=== PATIENT | female | born 1940 | race Caucasian/White ===

== ENCOUNTER 2017-02-02 09:12 | Emergency (ER) | payer OTHER ==
[~2017-02-02] VITALS: Ht 167.6 cm; Wt 71.0 kg
[2017-02-02 09:14] VITALS: BP 131/67; PULSE 69; RESP 15; TEMP 98.4; O2SAT 98
--- NOTE | 2017-02-02 09:32 | PD ---
HPI Chief Complaint: Fall Time Seen by Provider: 09:23 Travel History International Travel<30 days: No Contact w/Intl Traveler<30days: No Traveled to known affect area: No History of Present Illness HPI The patient was seen and examined in the presence of the nurse. This patient fell yesterday morning and twisted her left ankle. It has become bruised and swollen and painful. She also struck her left forehead on the ground. She denies loss of consciousness or headache or neck pain. She says that she caught her shoe on the ground when she was walking between rooms yesterday and stumbled and fell. She denies presyncopal symptoms or loss of consciousness as causing the event. He denies blood thinners. Symptoms severity is moderate. No alleviating factors. Duration 24 hours PFSH Past Medical History Asthma: Yes Autoimmune Disease: No Blood Disorders: No Cancer: No Cardiovascular Problems: No Endocrine: No Genitourinary: No Neurologic: No Psychiatric: No Social History Alcohol Use: No Tobacco Use: No Substance Use: No Allergies-Medications (Allergen,Severity, Reaction): Coded Allergies: Sulfa (Sulfonamide Antibiotics) (Unverified Allergy, Severe, 02/02/17) Reported Meds & Prescriptions Reported Meds & Active Scripts Active Reported Cartia Xt (Diltiazem ER 24 HR) 120 Mg Caper 120 Mg PO DAILY Namenda (Memantine) 5 Mg Tab 5 Mg PO BID Review of Systems General / Constitutional: No: Fever Eyes: No: Visual changes HENT: No: Headaches Cardiovascular: No: Chest Pain or Discomfort Respiratory: No: Shortness of Breath Gastrointestinal: No: Abdominal Pain Genitourinary: No: Dysuria Musculoskeletal: Positive: Arthralgias, Edema, Pain Skin: No Rash Neurologic: No: Weakness Psychiatric: No: Depression Endocrine: No: Polydipsia Hematologic/Lymphatic: No: Easy Bruising Physical Exam Narrative GENERAL: Well-nourished, well-developed patient in no apparent distress. SKIN: Focused skin assessment reveals no rash and nodules. Skin is Warm and dry. HEAD: Small bruised area to the left forehead. Normocephalic. EYES: Pupils equal and round. No scleral icterus. No injection or drainage. Small area of conjunctival hemorrhage on the lateral aspect of left eye ENT: No nasal bleeding or discharge. Mucous membranes pink and moist. NECK: Trachea midline. No JVD. No midline tenderness CARDIOVASCULAR: Regular rate and rhythm. No murmur appreciated. RESPIRATORY: No accessory muscle use. Clear to auscultation. Breath sounds equal bilaterally. GASTROINTESTINAL: Abdomen soft, non-tender, nondistended. Hepatic and splenic margins not palpable. MUSCULOSKELETAL: There is swelling and bruising and tenderness to the lateral malleolus on the left foot . No clubbing. No cyanosis. No edema. NEUROLOGICAL: Awake and alert. No obvious cranial nerve deficits. Motor grossly within normal limits. Normal speech. PSYCHIATRIC: Appropriate mood and affect; insight and judgment normal. Data Data Last Documented VS Vital Signs Date Time Temp Pulse Resp B/P Pulse Ox O2 Delivery O2 Flow Rate FiO2 02/02/17 09:14 98.4 69 15 131/67 98 Orders Ankle, Complete (Emz4iol) (02/02/17 ) [facility] Medical Decision Making Medical Screen Exam Complete: Yes Emergency Medical Condition: Yes Medical Record Reviewed: Yes Differential Diagnosis Ankle fracture, dislocation, sprain Narrative Course I have reviewed the patient's electronic medical record. I reviewed her left ankle x-rays which show soft tissue swelling but no fracture Regarding her head injury, we will give her head injury precautions. She has no headache or LOC or neurologic abnormalities and denies blood thinners. On repeated questioning this sounds like a mechanical fall. Recommend ice and elevation and walker use to limit weightbearing Diagnosis Primary Impression: Left ankle sprain Qualified Code: S93.432A - Sprain of tibiofibular ligament of left ankle, initial encounter Additional Instructions: Utilize head injury precautions Ice and elevate and avoid weightbearing on left ankle as best as able Med/Other Pt SpecificInfo: Other Disposition: 01 DISCHARGE HOME Condition: Stable Dov Smith MD Feb 02, 2017 09:32
[2017-02-02] MEDS ORDERED: CART120C PO (09:35)
[2017-02-02] MEDS ORDERED: NAME5TAB2 PO (09:35)
--- NOTE | 2017-02-02 10:11 | RADRPT ---
EXAM DATE/TIME: 02/02/2017 09:32 [facility] COMPARISON: No previous studies available for comparison. INDICATIONS : Left ankle pain after fall yesterday. MEDICAL HISTORY : None. SURGICAL HISTORY : None. ENCOUNTER: Initial ACUITY: 2 days PAIN SCORE: 4/10 LOCATION: Left Ankle FINDINGS: The examination demonstrates extensive soft tissue swelling about the ankle mortise. There are modera te degenerative changes. I do not see acute fracture. CONCLUSION: 1. Degenerative changes and soft tissue swelling. No acute fracture. Chang Patel MD on February 02, 2017 at 10:06 Board Certified Radiologist. This report was verified electronically.
== END 2017-02-02 10:53 | disposition home or self-care (01) ==
LOC: PHED 09:12
DX: S93.432A Sprain of tibiofibular ligament of left ankle, initial encounter (principal); S00.83XA Contusion of other part of head, initial encounter; H11.32 Conjunctival hemorrhage, left eye; Z87.09 Personal history of other diseases of the respiratory system; W18.39XA Other fall on same level, initial encounter
CPT/HCPCS: 73610; 99283

== ENCOUNTER 2017-04-26 21:02 | Inpatient (IN) | payer MEDICARE ==
[~2017-04-26] VITALS: Ht 167.6 cm; Wt 71.0 kg
[~2017-04-26 21:02] MED LIST: CALCTAB19 PO; CART120C PO; HYDR-3580 PO; MAGN30S PO; NAME5TAB2 PO; VITA500012 PO; WALKER/ADULT/FO1 MIS; XARE10TA PO
[2017-04-26 21:09] VITALS: BP 147/84; PULSE 82; PULSE 99; RESP 16; TEMP 99.8; O2SAT 95
[2017-04-26 21:47] LABS: AUTOMATED NEUTROPHIL # 8.9 TH/MM3 (1.8-7.7); BASOPHIL % 0.4 % (0.0-2.0); EOSINOPHIL # 0.1 TH/MM3 (0-0.4); EOSINOPHIL % 0.9 % (0.0-4.0); HEMATOCRIT 41.2 % (35.0-46.0); HEMO FLAGS DIFF FINAL; LYMPH % 9.2 % (9.0-44.0); LYMPHOCYTE # 1.1 TH/MM3 (1.0-4.8); MEAN CELL VOLUME 91.3 FL (80.0-100.0); MEAN CORPUSCULAR HEMOGLOBIN 31.1 PG (27.0-34.0); MONO % 14.3 % (0.0-8.0); NEUT % 75.2 % (16.0-70.0); PLATELET COUNT 182 TH/MM3 (150-450); RED BLOOD COUNT 4.52 MIL/MM3 (4.00-5.30); RED CELL DISTRIBUTION WIDTH 12.6 % (11.6-17.2); WHITE BLOOD COUNT 11.8 TH/MM3 (4.0-11.0)
[2017-04-26 21:52] LABS: BLOOD, URINE SMALL (NEG); COMMENT (UR) CULT NOT INDICATED; CULTURE IF INDICATED CULT NOT INDICATED; GLUCOSE,URINE NEG (NEG); KETONE, URINE 40 mg/dL (NEG); NITRITE,URINE NEG (NEG); PH, URINE 6.5 (5.0-8.5); SQUAMOUS EPITHELIAL CELL URINE <1 /hpf (0-5); URINE COLOR YELLOW (YELLW/STRAW)
[2017-04-26 22:16] LABS: ALKALINE PHOSPHATASE 59 U/L (45-117); ALT (GPT) 17 U/L (10-53); ANION GAP 6 MEQ/L (5-15); AST (GOT) 30 U/L (15-37); BICARBONATE 30.4 MEQ/L (21.0-32.0); BLOOD UREA NITROGEN 12 MG/DL (7-18); CHLORIDE 102 MEQ/L (98-107); GLOMERULAR FILTRATION RATE 68 ML/MIN (>89); SODIUM (NA) 138 MEQ/L (136-145); TOTAL BILIRUBIN ADULT 0.7 MG/DL (0.2-1.0)
--- NOTE | 2017-04-26 23:04 | RADRPT ---
EXAM DATE/TIME: 04/26/2017 22:47 [facility] COMPARISON: No previous studies available for comparison. INDICATIONS : Altered mental status, confusion RADIATION DOSE: 28.43 CTDIvol (mGy) MEDICAL HISTORY : Asthma SURGICAL HISTORY : Right hip surgery ENCOUNTER: Initial ACUITY: 1 day PAIN SCALE: 0/10 LOCATION: cranial TECHNIQUE: Multiple contiguous axial images were obtained of the head. Using automated exposure control and adj ustment of the mA and/or kV according to patient size, radiation dose was kept as low as reasonably a chievable to obtain optimal diagnostic quality images. DICOM format image data is available electro nically for review and comparison. FINDINGS: CEREBRUM: The ventricles are normal for age. No evidence of midline shift, mass lesion, hemorrhage or acute in farction. No extra-axial fluid collections are seen. POSTERIOR FOSSA: The cerebellum and brainstem are intact. The 4th ventricle is midline. The cerebellopontine angle i s unremarkable. EXTRACRANIAL: The visualized portion of the orbits is intact. SKULL: The calvaria is intact. No evidence of skull fracture. CONCLUSION: 1. No evidence of acute intracranial pathology. No masses are identified. Kristopher Harman MD on April 26, 2017 at 23:02 Board Certified Radiologist. This report was verified electronically.
[2017-04-26 23:21] VITALS: BP 149/78; PULSE 82; RESP 16; O2SAT 95
--- NOTE | 2017-04-26 23:50 | RADRPT ---
EXAM DATE/TIME: 04/26/2017 23:19 [facility] COMPARISON: CHEST SINGLE AP, April 25, 2017, 12:35. INDICATIONS : Shortness of breath and cough. MEDICAL HISTORY : None. SURGICAL HISTORY : None. ENCOUNTER: Initial ACUITY: 2 days PAIN SCORE: 0/10 LOCATION: chest FINDINGS: The cardiac silhouette is enlarged in transverse diameter. The lungs are free of acute parenchymal op acity. No effusions are identified. There is prominence of the aortic knob is with calcification rin acteristic of atherosclerotic vascular disease. CONCLUSION: 1. Cardiomegaly. No acute pulmonary disease. Kristopher Harman MD on April 26, 2017 at 23:48 Board Certified Radiologist. This report was verified electronically.
--- NOTE | 2017-04-26 23:56 | HHI.HP ---
[facility] Unknown Admission Diagnosis altered Mental Status Diagnoses: (1) Encephalopathy Diagnosis: Principal (2) UTI (urinary tract infection) Diagnosis: Principal (3) Status post right hip replacement Diagnosis: Principal (4) Dementia Diagnosis: Principal Travel History International Travel<30 Days: No Contact w/Intl Traveler <30 Da: No Traveled to Known Affected Are: No History of Present Illness This is a 77-year-old female with a PMH of HTN and Dementia who was sent to the ER from [facility] secondary to AMS. Recent admit 04/23-04/26/17 s/p fall w/ Right Hip Fx, s/p Right Hip Lee-Arthroplasty 04/23/17, was d/c'd to SNF today, however noted by Daughter to be very confused. Daughter states she arrived from [place] last night and found pt to be incoherent, acting bizarrely today. No reported fever, chills. On arrival, BP 147/84, HR 82, O2 sat 95% on RA, Temp 99.8. WBC 11.8. GFR 68. Pulmonary negative. UA with small LE, mild bacteriuria. CT Head with no acute findings. CXR with no acute findings. Review of Systems Except as stated in HPI: all other systems reviewed are Neg ROS: Unable to obtain secondary to AMS. Past Family Social History Past Medical History PMH: HTN and Dementia Past Surgical History PAST SURGICAL HISTORY: Right Hip Lee-Arthroplasty 04/23/17 Allergies: Coded Allergies: Sulfa (Sulfonamide Antibiotics) (Unverified Allergy, Severe, 04/26/17) Family History PAST FAMILY HISTORY: Reviewed. No h/o DM or CAD Social History PAST SOCIAL HISTORY: Negative for alcohol, tobacco or drugs. Physical Exam Vital Signs Vital Signs Date Time Temp Pulse Resp B/P (MAP) Pulse Ox O2 Delivery O2 Flow Rate FiO2 04/26/17 23:21 82 16 149/78 (101) 95 Room Air 04/26/17 21:09 99.8 82 16 147/84 (105) 95 Physical Exam PE: GENERAL: Elderly white female in no acute distress, confused, talking to herself , playing with her sheets. HEENT: PERRLA, EOMI. No scleral icterus or conjunctival pallor. No lid lag or facial droop. CARDIOVASCULAR: Regular rate and rhythm. No obvious murmurs to auscultation. No chest tenderness to palpation. RESPIRATORY: No obvious rhonchi or wheezing. Clear to auscultation. Breath sounds equal bilaterally. GASTROINTESTINAL: Abdomen soft, non-tender, nondistended. BS normal. MUSCULOSKELETAL: Extremities without clubbing, cyanosis, or edema. No obvious deformities. Right LE brace. NEUROLOGICAL: Awake, alert, confused. No focal neurologic deficits. Moving both upper and lower extremities spontaneously. Laboratory Laboratory Tests Test 04/26/17 21:35 White Blood Count 11.8 Red Blood Count 4.52 Hemoglobin 14.0 Hematocrit 41.2 Mean Corpuscular Volume 91.3 Mean Corpuscular Hemoglobin 31.1 Mean Corpuscular Hemoglobin Concent 34.0 Red Cell Distribution Width 12.6 Platelet Count 182 Mean Platelet Volume 9.5 Neutrophils (%) (Auto) 75.2 Lymphocytes (%) (Auto) 9.2 Monocytes (%) (Auto) 14.3 Eosinophils (%) (Auto) 0.9 Basophils (%) (Auto) 0.4 Neutrophils # (Auto) 8.9 Lymphocytes # (Auto) 1.1 Monocytes # (Auto) 1.7 Eosinophils # (Auto) 0.1 Basophils # (Auto) 0.0 CBC Comment DIFF FINAL Differential Comment Urine Color YELLOW Urine Turbidity CLEAR Urine pH 6.5 Urine Specific [place] 1.017 Urine Protein TRACE Urine Glucose (UA) NEG Urine Ketones 40 Urine Occult Blood SMALL Urine Nitrite NEG Urine Bilirubin NEG Urine Urobilinogen LESS THAN 2.0 Urine Leukocyte Esterase SMALL Urine RBC 12 Urine WBC 3 Urine Squamous Epithelial Cells <1 Microscopic Urinalysis Comment CULT NOT INDICATED Blood Urea Nitrogen 12 Creatinine 0.82 Random Glucose 118 Total Protein 6.8 Albumin 2.7 Calcium Level 9.0 Alkaline Phosphatase 59 Aspartate Amino Transf (AST/SGOT) 30 Alanine Aminotransferase (ALT/SGPT) 17 Total Bilirubin 0.7 Sodium Level 138 Potassium Level 4.0 Chloride Level 102 Carbon Dioxide Level 30.4 Anion Gap 6 Estimat Glomerular Filtration Rate 68 Troponin I LESS THAN 0.02 Lipase 85 Result Diagram: 04/26/17213404/26/172134 Caprini VTE Risk Assessment Caprini VTE Risk Assessment: Mod/High Risk (score >= 2) Caprini Risk Assessment Model Point Value = 1 Point Value = 2 Point Value = 3 Point Value = 5 Age 41-60 Minor surgery BMI > 25 kg/m2 Swollen legs Varicose veins or History of unexplained or recurrent spontaneous Oral contraceptives or hormone replacement Sepsis (< 1 month) Serious lung disease, including pneumonia (< 1 month) Abnormal pulmonary function Acute myocardial infarction Congestive heart failure (< 1 month) History of inflammatory bowel disease Medical patient at bed rest Age 61-74 Arthroscopic surgery Major open surgery (> 45 min) Laparoscopic surgery (> 45 min) Malignancy Confined to bed (> 72 hours) Immobilizing plaster cast Central venous access Age >= 75 History of VTE Family history of VTE Factor V Leiden Prothrombin [id number] Lupus anticoagulant Anticardiolipin antibodies Elevated serum homocysteine Heparin-induced thrombocytopenia Other congenital or acquired thrombophilia Stroke (< 1 month) Elective arthroplasty Hip, pelvis, or leg fracture Acute spinal cord injury (< 1 month) Prophylaxis Regimen Total Risk Factor Score Risk Level Prophylaxis Regimen 0-1 Low Early ambulation 2 Moderate Order ONE of the following: *Sequential Compression Device (SCD) *Heparin 5000 units SQ BID 3-4 Higher Order ONE of the following medications: *Heparin 5000 units SQ TID *Enoxaparin/Lovenox 40 mg SQ daily (WT < 150 kg, CrCl > 30 mL/min) *Enoxaparin/Lovenox 30 mg SQ daily (WT < 150 kg, CrCl > 10-29 mL/min) *Enoxaparin/Lovenox 30 mg SQ BID (WT < 150 kg, CrCl > 30 mL/min) AND/OR *Sequential Compression Device (SCD) 5 or more Highest Order ONE of the following medications: *Heparin 5000 units SQ TID (Preferred with Epidurals) *Enoxaparin/Lovenox 40 mg SQ daily (WT < 150 kg, CrCl > 30 mL/min) *Enoxaparin/Lovenox 30 mg SQ daily (WT < 150 kg, CrCl > 10-29 mL/min) *Enoxaparin/Lovenox 30 mg SQ BID (WT < 150 kg, CrCl > 30 mL/min) AND *Sequential Compression Device (SCD) Assessment and Plan Problem List: (1) Encephalopathy ICD Code: G93.40 - Encephalopathy, unspecified (2) UTI (urinary tract infection) ICD Code: N39.0 - Urinary tract infection, site not specified (3) Dementia ICD Code: F03.90 - Unspecified dementia without behavioral disturbance (4) Status post right hip replacement ICD Code: Z96.641 - Presence of right artificial hip joint Assessment and Plan A/P: 1. Encephalopathy: Likely multifactorial-underlying dementia w/ recent hospitalization/surgical intervention and UTI. CT Head w/ no acute findings, images reviewed by me. Neuro checks q4h. Hold analgesics. 2. UTI: U/a w/ small LE, mild bacteriuria, in light of low-grade temp, leukocytosis and AMS, will treat for UTI w/ IV Rocephin. 3. Dementia: Resume home Namenda 4. Right Hip Lee-Arthroplasty: Recent admit 04/23-04/26/17 w/ right hip fx after fall, s/p Right Hip Lee-Arthroplasty 04/23/17. Continue w/ PT. 5. DVT Prophylaxis: Resume Xarelto 6. Social work for d/c planning as needed. 7. Case discussed w/ ER physician at length. Aminta Aponte MD Apr 26, 2017 23:56
[2017-04-27] VITALS (7 sets, daily range): BP systolic 117–178; BP diastolic 63–95; PULSE 71–125; RESP 18–20; TEMP 97.7–99.3; O2SAT 94–97
[2017-04-27] MEDS ORDERED: LACTULOSE SYRUP 20 GM/30 ML CUP PO PRN
[2017-04-27] MEDS ORDERED: SENNOSIDES 8.6 MG TAB PO PRN
[2017-04-27] MEDS ORDERED: ONDANSETRON HCL 4 MG/2 ML VIAL IVP PRN
[2017-04-27] MEDS ORDERED: BISACODYL 10 MG SUPP RECTAL PRN
[2017-04-27] MEDS ORDERED: ACETAMINOPHEN 325 MG TAB PO PRN
[2017-04-27] MEDS ORDERED: SODIUM CHLORIDE 0.9% FLUSH 10 ML FLUSH IV FLUSH PRN
[2017-04-27] MEDS ORDERED: MAGNESIUM HYDROXIDE SUSP 30 ML CUP PO PRN
[2017-04-27] MEDS: cefTRIAXone INJ 1,000 MG in SODIUM CHLORIDE 0.9% INJ 100 ML IV SCH (00:08)
--- NOTE | 2017-04-27 00:32 | PD ---
HPI Chief Complaint: Altered Mental Status Time Seen by Provider: 21:08 Travel History International Travel<30 days: No Contact w/Intl Traveler<30days: No Traveled to known affect area: No History of Present Illness HPI Patient was in [place] ER with a fractured hip 5 days ago. She had a surgical procedure done and was discharged from upstairs to a long term today . However daughter arrives the long term finds her daughter to be severely altered mentally compared to her baseline. And patient is transferred back from the long term . I recognized the patient custodial to my exam as the woman who I admitted for the surgery for her hip. And she is completely altered compared to what she was when first admitted. I suspect a urine infection postoperative from the [place] however the urine is negative. I also suspect a possible injury brain-wiggins CAT scan is negative area patient seems to be medically delirium at this point possibly due to narcotics. Possibly due to sundowning and the isolation of the long term and the hospital room. Workup CT head urine blood EKG chest x-ray is ordered [facility] Past Medical History Alzheimer's Disease: Yes Asthma: Yes Autoimmune Disease: No Blood Disorders: No Heart Rhythm Problems: Yes Cancer: No Cardiovascular Problems: No Diminished Hearing: No Endocrine: No Gastrointestinal Disorders: No Genitourinary: No Neurologic: No Psychiatric: No Reproductive: No Immunizations Current: Yes Tetanus Vaccination: Unknown Influenza Vaccination: Yes Para: 4 Past Surgical History Other Surgery: Yes (WRIST ) Social History Alcohol Use: No Tobacco Use: No Substance Use: No Allergies-Medications (Allergen,Severity, Reaction): Coded Allergies: Sulfa (Sulfonamide Antibiotics) (Unverified Allergy, Severe, 04/26/17) Reported Meds & Prescriptions Reported Meds & Active Scripts Active Qc Milk of Magnesia (Magnesium Hydroxide) 400 Mg/5 Ml Brenda 30 Ml PO BID PRN Calcium 600+D 200 (Calcium Carbonate-Vitamin D) 600-200 Mg-Unit Tab 1 Tab PO BID Ergocalciferol 50,000 Unit Cap 50,000 Units PO Q7D Xarelto (Rivaroxaban) 10 Mg Tab 10 Mg PO DAILY Hydrocodone-Acetaminophen 7.5-325 mg Tab 1 Tab PO Q4H PRN Walker/Adult/Folding (Device) 1 Mis Mis Ea .ROUTE DIRECTED Reported Cartia Xt (Diltiazem ER 24 HR) 120 Mg Caper 120 Mg PO DAILY Namenda (Memantine) 5 Mg Tab 5 Mg PO BID Review of Systems ROS Limitations: Altered Mental Status Physical Exam Narrative GENERAL: Patient appears to be in a delirium trying to talk in normal sentences but making little sense words make sense but the sentence content does not leg isn't along the immobilizer postoperative SKIN: Warm and dry. HEAD: Atraumatic. Normocephalic. EYES: Pupils equal and round. No scleral icterus. No injection or drainage. ENT: No nasal bleeding or discharge. Mucous membranes pink and moist. NECK: Trachea midline. No JVD. CARDIOVASCULAR: Regular rate and rhythm. RESPIRATORY: No accessory muscle use. Clear to auscultation. Breath sounds equal bilaterally. GASTROINTESTINAL: Abdomen soft, non-tender, nondistended. Hepatic and splenic margins not palpable. MUSCULOSKELETAL: Extremities right hip and knee are in immobilizer without clubbing, cyanosis, or edema. No obvious deformities. NEUROLOGICAL: Awake and alert. No obvious cranial nerve deficits. Motor grossly within normal limits. Five out of 5 muscle strength in the arms and legs. Normal speech. PSYCHIATRIC: Patient seems to be in medical delirium. Data Data Last Documented VS Vital Signs Date Time Temp Pulse Resp B/P (MAP) Pulse Ox O2 Delivery O2 Flow Rate FiO2 04/26/17 23:21 82 16 149/78 (101) 95 Room Air 04/26/17 21:09 99.8 Orders Orders Urinalysis - C+S If Indicated (04/26/17 21:24) Complete Blood Count With Diff (04/26/17 21:24) Comprehensive Metabolic Panel (04/26/17 21:24) Lipase (04/26/17 21:34) Troponin I (04/26/17 21:34) Electrocardiogram (04/26/17 21:23) Ct Brain W/O Iv Contrast(Rout) (04/26/17 ) Chest, Single Ap (04/26/17 ) Ceftriaxone Inj (Rocephin Inj) (04/27/17 00:00) Admit Order (Ed Use Only) (04/26/17 23:54) Place In Observation (04/26/17 ) Vital Signs (Adult) Q4H (04/26/17 23:54) Activity Oob With Assistance (04/26/17 23:54) Diet Regular Basic (04/27/17 Breakfast) Sodium Chloride 0.9% Flush (Ns Flush) (04/27/17 00:00) Sodium Chloride 0.9% Flush (Ns Flush) (04/27/17 09:00) Ondansetron Inj (Zofran Inj) (04/27/17 00:00) Comprehensive Metabolic Panel (04/27/17 06:00) Complete Blood Count With Diff (04/27/17 06:00) Pt Request For Service (04/26/17 23:54) Case Management Consult (04/26/17 23:54) Acetaminophen (Tylenol) (04/27/17 00:00) Docusate Sodium-Senna (Cathy-Colace) (04/27/17 09:00) Magnesium Hydroxide Liq (Milk Of Magnesi (04/27/17 00:00) Sennosides (Senokot) (04/27/17 00:00) Bisacodyl Supp (Dulcolax Supp) (04/27/17 00:00) Lactulose Liq (Lactulose Liq) (04/27/17 00:00) Diltiazem Cd (Cardizem Cd) (04/27/17 09:00) Memantine (Namenda) (04/27/17 09:00) Rivaroxaban (Xarelto) (04/27/17 09:00) Calcium-Vit D 250-125 Mg (Oscal-D 250-12 (04/27/17 09:00) Labs Laboratory Tests Test 04/26/17 21:35 White Blood Count 11.8 TH/MM3 Red Blood Count 4.52 MIL/MM3 Hemoglobin 14.0 GM/DL Hematocrit 41.2 % Mean Corpuscular Volume 91.3 FL Mean Corpuscular Hemoglobin 31.1 PG Mean Corpuscular Hemoglobin Concent 34.0 % Red Cell Distribution Width 12.6 % Platelet Count 182 TH/MM3 Mean Platelet Volume 9.5 FL Neutrophils (%) (Auto) 75.2 % Lymphocytes (%) (Auto) 9.2 % Monocytes (%) (Auto) 14.3 % Eosinophils (%) (Auto) 0.9 % Basophils (%) (Auto) 0.4 % Neutrophils # (Auto) 8.9 TH/MM3 Lymphocytes # (Auto) 1.1 TH/MM3 Monocytes # (Auto) 1.7 TH/MM3 Eosinophils # (Auto) 0.1 TH/MM3 Basophils # (Auto) 0.0 TH/MM3 CBC Comment DIFF FINAL Differential Comment Urine Color YELLOW Urine Turbidity CLEAR Urine pH 6.5 Urine Specific [place] 1.017 Urine Protein TRACE mg/dL Urine Glucose (UA) NEG mg/dL Urine Ketones 40 mg/dL Urine Occult Blood SMALL Urine Nitrite NEG Urine Bilirubin NEG Urine Urobilinogen LESS THAN 2.0 MG/DL Urine Leukocyte Esterase SMALL Urine RBC 12 /hpf Urine WBC 3 /hpf Urine Squamous Epithelial Cells <1 /hpf Microscopic Urinalysis Comment CULT NOT INDICATED Blood Urea Nitrogen 12 MG/DL Creatinine 0.82 MG/DL Random Glucose 118 MG/DL Total Protein 6.8 GM/DL Albumin 2.7 GM/DL Calcium Level 9.0 MG/DL Alkaline Phosphatase 59 U/L Aspartate Amino Transf (AST/SGOT) 30 U/L Alanine Aminotransferase (ALT/SGPT) 17 U/L Total Bilirubin 0.7 MG/DL Sodium Level 138 MEQ/L Potassium Level 4.0 MEQ/L Chloride Level 102 MEQ/L Carbon Dioxide Level 30.4 MEQ/L Anion Gap 6 MEQ/L Estimat Glomerular Filtration Rate 68 ML/MIN Troponin I LESS THAN 0.02 NG/ML Lipase 85 U/L [facility] Medical Decision Making Medical Screen Exam Complete: Yes Emergency Medical Condition: Yes Differential Diagnosis Drug reaction to narcotics from the surgery Anoxic injury during the surgery versus medical delirium from UTI medical delirium from other source Narrative Course Patient has a CAT scan that is read as negative. Patient's EKG is normal sinus rhythm patient's troponin is negative . Patient's urine is not infected . [facility] evaluation of why she is altered since the surgery. I give sign out to Dr. Camacho admit Diagnosis Primary Impression: Altered mental status Qualified Codes: R41.0 - Disorientation, unspecified Additional Impression: Delirium due to medical condition with behavioral disturbance Admitting Information Admitting Physician Requests: it Francesco German MD Apr 27, 2017 00:32
[2017-04-27 07:11] LABS: AUTOMATED NEUTROPHIL # 7.1 TH/MM3 (1.8-7.7); BASOPHIL # 0.1 TH/MM3 (0-0.2); BASOPHIL % 0.6 % (0.0-2.0); EOSINOPHIL # 0.2 TH/MM3 (0-0.4); HEMATOCRIT 40.4 % (35.0-46.0); HEMO FLAGS DIFF FINAL; LYMPH % 10.6 % (9.0-44.0); LYMPHOCYTE # 1.1 TH/MM3 (1.0-4.8); MEAN CELL VOLUME 91.7 FL (80.0-100.0); MEAN CORPUSCULAR HEMOGLOBIN 31.5 PG (27.0-34.0); MEAN CORPUSCULAR HGB CONC 34.3 % (32.0-36.0); MONO % 15.8 % (0.0-8.0); PLATELET COUNT 179 TH/MM3 (150-450); RED BLOOD COUNT 4.41 MIL/MM3 (4.00-5.30); RED CELL DISTRIBUTION WIDTH 12.6 % (11.6-17.2); WHITE BLOOD COUNT 10.1 TH/MM3 (4.0-11.0)
[2017-04-27 07:35] LABS: ANION GAP 9 MEQ/L (5-15); AST (GOT) 26 U/L (15-37); BICARBONATE 29.2 MEQ/L (21.0-32.0); BLOOD UREA NITROGEN 11 MG/DL (7-18); CHLORIDE 103 MEQ/L (98-107); GLOMERULAR FILTRATION RATE 77 ML/MIN (>89); POTASSIUM 3.5 MEQ/L (3.5-5.1); SODIUM (NA) 141 MEQ/L (136-145)
[2017-04-27 07:39] LABS: ALKALINE PHOSPHATASE 54 U/L (45-117); ALT (GPT) 15 U/L (10-53); TOTAL BILIRUBIN ADULT 0.7 MG/DL (0.2-1.0)
[2017-04-27] MEDS ORDERED: POTASSIUM CHLORIDE 20 MEQ CONTROLLED RELEASE TAB PO ONE (08:45)
[2017-04-27] MEDS: CALCIUM/VITAMIN D 250 MG/125 U TAB PO SCH ×2 (10:18→20:44)
[2017-04-27] MEDS: DOCUSATE SODIUM 50 MG/SENNA 8.6 MG TAB PO SCH ×2 (10:18→20:44)
[2017-04-27] MEDS: DILTIAZEM-CD 120 MG CAP ER PO SCH (10:19)
[2017-04-27] MEDS: SODIUM CHLORIDE 0.9% FLUSH 10 ML FLUSH IV FLUSH SCH ×2 (10:19→20:44)
[2017-04-27] MEDS: MEMANTINE HCL 5 MG TAB PO SCH ×2 (10:49→20:44)
[2017-04-27] MEDS: RIVAROXABAN 10 MG TAB PO SCH (10:49)
--- NOTE | 2017-04-27 13:37 | HHI.PR ---
Subjective Remarks Follow-up encephalopathy. She is awake and interactive. According to family she is improving but still of baseline. Patient has no complaints Objective Vitals Vital Signs Date Time Temp Pulse Resp B/P (MAP) Pulse Ox O2 Delivery O2 Flow Rate FiO2 04/27/17 11:41 98.4 71 18 127/63 (84) 96 04/27/17 08:05 97.7 125 20 133/71 (91) 97 04/27/17 03:53 97.8 83 19 143/95 (111) 94 04/27/17 00:47 98.3 79 20 178/78 (111) 95 04/27/17 00:24 04/26/17 23:21 82 16 149/78 (101) 95 Room Air 04/26/17 21:09 99.8 82 16 147/84 (105) 95 Result Diagram: 04/27/17 0618 04/27/17 0618 Imaging Last Impressions Head CT 04/26/17 0000 Signed Impressions: Service Date/Time: April 22:47 - CONCLUSION: 1. No evidence of acute intracranial pathology. No masses are identified. Kristopher Harman MD Chest X-Ray 04/26/17 0000 Signed Impressions: Service Date/Time: April 23:19 - CONCLUSION: 1. Cardiomegaly. No acute pulmonary disease. Kristopher Harman MD Objective Remarks GENERAL: Elderly white female in no acute distress HEENT: PERRLA, EOMI. No scleral icterus or conjunctival pallor. No lid lag or facial droop. CARDIOVASCULAR: Regular rate and rhythm. No obvious murmurs to auscultation. No chest tenderness to palpation. RESPIRATORY: No obvious rhonchi or wheezing. Clear to auscultation. Breath sounds equal bilaterally. GASTROINTESTINAL: Abdomen soft, non-tender, nondistended. BS normal. MUSCULOSKELETAL: Extremities without clubbing, cyanosis, or edema. No obvious deformities. Right LE brace. NEUROLOGICAL: Awake, alert, oriented to person and place. No focal neurologic deficits. Moving both upper and lower extremities spontaneously. Procedures None A/P Problem List: (1) Encephalopathy ICD Code: G93.40 - Encephalopathy, unspecified (2) UTI (urinary tract infection) ICD Code: N39.0 - Urinary tract infection, site not specified (3) Dementia ICD Code: F03.90 - Unspecified dementia without behavioral disturbance (4) Status post right hip replacement ICD Code: Z96.641 - Presence of right artificial hip joint Assessment and Plan 1. Encephalopathy: Likely multifactorial-underlying dementia w/ recent hospitalization/surgical intervention, sleep deprivation, meds and UTI. CT Head w/ no acute findings, images reviewed by me. Neuro checks q4h. Hold analgesics. Improving obtain ammonia level and EEG 2. UTI: U/a w/ small LE, mild bacteriuria, in light of low-grade temp, leukocytosis and AMS, will treat for UTI w/ IV Rocephin. 3. Dementia: Resume home Namenda 4. Right Hip Lee-Arthroplasty: Recent admit 04/23-04/26/17 w/ right hip fx after fall, s/p Right Hip Lee-Arthroplasty 04/23/17. Continue w/ PT. avoid narcotics if possible 5. Hyperglycemia. Obtain A1c DVT Prophylaxis: Resume Xarelto Discharge Planning Possible dc in 1-2 days Reji Sherman MD Apr 27, 2017 13:37
--- NOTE | 2017-04-27 15:40 | MG ---
cc: VALE KULKARNI M.D. Lab No: [id number] Date: 04/27/2017 : 1940 Sex: F TECHNIQUE 17-channel EEG. DESCRIPTION The background rhythm reveals symmetrical alpha rhythm, frequency about 8 Hz during drowsiness. There is slowing in the theta range. There are no lateralizing features. There are no epileptiform discharges. Much of the rhythm is in the theta range. Photic results in a poor driving response. INTERPRETATION Mildly abnormal study on the basis of generalized slowing consistent with a mild encephalopathy. MD ROWAN Rivera/JACQUIE /3:31 PM /3:34 PM
[2017-04-27 18:06] LABS: HEMOGLOBIN A1a 1.2 %; HEMOGLOBIN A1b 1.7 %; HEMOGLOBIN Ao 84.7 %; HEMOGLOBIN LA1C 2.2 %; HEMOGLOBIN P3 5.5 %
--- NOTE | 2017-04-27 18:10 | EKG ---
Date Performed: 04/26/2017 Time Performed: 21:23:31 PTAGE: 77 years EKG: Sinus rhythm NORMAL ECG PREVIOUS TRACING : 04/23/2017 00.28 DOCTOR: Ranjit Bellamy Interpretating Date/Time 04/27/2017 18:08:57
[2017-04-28] MEDS: cefTRIAXone INJ 1,000 MG in SODIUM CHLORIDE 0.9% INJ 100 ML IV SCH (00:20)
[2017-04-28 04:07] VITALS: BP 146/72; PULSE 83; RESP 20; TEMP 99; O2SAT 97
--- NOTE | 2017-04-28 05:47 | RADRPT ---
EXAM DATE/TIME: 04/28/2017 05:18 [facility] COMPARISON: No previous studies available for comparison. INDICATIONS : Pain- Follow up Right hip Replacement MEDICAL HISTORY : None. SURGICAL HISTORY : Right hip Replacement ENCOUNTER: Subsequent ACUITY: 1 week PAIN SCORE: 7/10 LOCATION: Right Hip FINDINGS: Examination of the hip demonstrates total hip arthroplasty in satisfactory position. The alignment is anatomic. CONCLUSION: Post surgical changes as above. Kristopher Harman MD on April 28, 2017 at 5:45 Board Certified Radiologist. This report was verified electronically.
[2017-04-28] MEDS ORDERED: POLYETHYLENE GLYCOL 17 GM PKG PO ONE (10:00)
[2017-04-28] MEDS: DILTIAZEM-CD 120 MG CAP ER PO SCH (10:20)
[2017-04-28] MEDS: SODIUM CHLORIDE 0.9% FLUSH 10 ML FLUSH IV FLUSH SCH ×2 (10:20→21:10)
[2017-04-28] MEDS: RIVAROXABAN 10 MG TAB PO SCH (10:20)
[2017-04-28] MEDS: DOCUSATE SODIUM 50 MG/SENNA 8.6 MG TAB PO SCH ×2 (10:21→21:10)
[2017-04-28] MEDS: CALCIUM/VITAMIN D 250 MG/125 U TAB PO SCH ×2 (10:21→21:10)
[2017-04-28] MEDS: MEMANTINE HCL 5 MG TAB PO SCH ×2 (10:22→21:10)
--- NOTE | 2017-04-28 12:37 | HHI.PR ---
Subjective Remarks Follow-up encephalopathy. She is more confused today. According to daughter, she did not sleep last night. Discussed with RN Objective Vitals Vital Signs Date Time Temp Pulse Resp B/P (MAP) Pulse Ox O2 Delivery O2 Flow Rate FiO2 04/28/17 04:07 99.0 83 20 146/72 (96) 97 04/27/17 23:28 99.3 84 20 130/69 (89) 95 04/27/17 20:35 99.3 78 20 141/67 (91) 96 04/27/17 15:31 98.3 91 20 117/71 (86) 96 Result Diagram: 04/27/1761704/27/1718 Imaging Last Impressions Hip and Pelvis X-Ray 04/28/17 0000 Signed Impressions: Service Date/Time: Friday, April 28, 2017 05:18 - CONCLUSION: Post surgical changes as above. Kristopher Harman MD Head CT 04/26/17 0000 Signed Impressions: Service Date/Time: April 22:47 - CONCLUSION: 1. No evidence of acute intracranial pathology. No masses are identified. Kristopher Harman MD Chest X-Ray 04/26/17 0000 Signed Impressions: Service Date/Time: April 23:19 - CONCLUSION: 1. Cardiomegaly. No acute pulmonary disease. Kristopher Harman MD Objective Remarks GENERAL: Elderly white female in no acute distress HEENT: PERRLA, EOMI. No scleral icterus or conjunctival pallor. No lid lag or facial droop. CARDIOVASCULAR: Regular rate and rhythm. No obvious murmurs to auscultation. No chest tenderness to palpation. RESPIRATORY: No obvious rhonchi or wheezing. Clear to auscultation. Breath sounds equal bilaterally. GASTROINTESTINAL: Abdomen soft, non-tender, nondistended. BS normal. MUSCULOSKELETAL: Extremities without clubbing, cyanosis, or edema. No obvious deformities. Right LE brace. NEUROLOGICAL: Awake, confused. No focal neurologic deficits. Moving both upper and lower extremities spontaneously. Procedures None A/P Problem List: (1) Encephalopathy ICD Code: G93.40 - Encephalopathy, unspecified (2) UTI (urinary tract infection) ICD Code: N39.0 - Urinary tract infection, site not specified (3) Dementia ICD Code: F03.90 - Unspecified dementia without behavioral disturbance (4) Status post right hip replacement ICD Code: Z96.641 - Presence of right artificial hip joint Assessment and Plan 1. Encephalopathy: Likely multifactorial-underlying dementia w/ recent hospitalization/surgical intervention, sleep deprivation, constipation, meds and UTI. CT Head w/ no acute findings, images reviewed by me. EEG and ammonia level unremarkable. Fluctuating mental status. Sleep hygiene. Follow-up RPR. Consult neurology 2. UTI: U/a w/ small LE, mild bacteriuria, in light of low-grade temp, leukocytosis and AMS, will treat for UTI w/ IV Rocephin. 3. Dementia: Resume home Namenda 4. Right Hip Lee-Arthroplasty: Recent admit 04/23-04/26/17 w/ right hip fx after fall, s/p Right Hip Lee-Arthroplasty 04/23/17. Continue w/ PT. avoid narcotics if possible 5. Hyperglycemia. A1c 5.7 6. Constipation. MiraLAX 1. DVT Prophylaxis: Resume Xarelto Discharge Planning Not ready for discharge Reji Sherman MD Apr 28, 2017 12:37
[2017-04-28 16:29] VITALS: BP 139/65; PULSE 106; RESP 20; TEMP 97.9; O2SAT 95
[2017-04-28 19:17] VITALS: BP 144/68; PULSE 105; RESP 14; TEMP 101.1; O2SAT 91
[2017-04-28] MEDS ORDERED: ACETAMINOPHEN/HYDROcodone 325 MG/5 MG TAB PO PRN (21:15)
[2017-04-29] VITALS (10 sets, daily range): BP systolic 101–147; BP diastolic 58–97; PULSE 60–106; RESP 16–18; TEMP 97.7–98.8; O2SAT 94–99
[2017-04-29] MEDS: cefTRIAXone INJ 1,000 MG in SODIUM CHLORIDE 0.9% INJ 100 ML IV SCH (00:48)
[2017-04-29] MEDS ORDERED: KETOROLAC TROMETHAMINE 30 MG/ML (IVP) VIAL IV PUSH PRN (08:15)
[2017-04-29] MEDS: DOCUSATE SODIUM 50 MG/SENNA 8.6 MG TAB PO SCH ×2 (10:10→20:35)
[2017-04-29] MEDS: SODIUM CHLORIDE 0.9% FLUSH 10 ML FLUSH IV FLUSH SCH ×2 (10:10→20:35)
[2017-04-29] MEDS: RIVAROXABAN 10 MG TAB PO SCH (10:10)
[2017-04-29] MEDS: CALCIUM/VITAMIN D 250 MG/125 U TAB PO SCH ×2 (10:10→20:35)
[2017-04-29] MEDS: NS + KCL 20 MEQ INJ 1,000 ML IV PRN (10:11)
[2017-04-29] MEDS: DILTIAZEM-CD 120 MG CAP ER PO SCH (10:11)
[2017-04-29] MEDS: MEMANTINE HCL 5 MG TAB PO SCH ×2 (10:11→20:35)
[2017-04-29 11:38] LABS: AUTOMATED NEUTROPHIL # 5.6 TH/MM3 (1.8-7.7); BASOPHIL # 0.1 TH/MM3 (0-0.2); BASOPHIL % 0.7 % (0.0-2.0); EOSINOPHIL # 0.4 TH/MM3 (0-0.4); EOSINOPHIL % 4.8 % (0.0-4.0); HEMATOCRIT 38.7 % (35.0-46.0); HEMO FLAGS DIFF FINAL; LYMPH % 15.3 % (9.0-44.0); LYMPHOCYTE # 1.3 TH/MM3 (1.0-4.8); MEAN CELL VOLUME 92.8 FL (80.0-100.0); MEAN CORPUSCULAR HEMOGLOBIN 31.1 PG (27.0-34.0); MEAN CORPUSCULAR HGB CONC 33.5 % (32.0-36.0); MONO % 14.2 % (0.0-8.0); PLATELET COUNT 223 TH/MM3 (150-450); RED BLOOD COUNT 4.17 MIL/MM3 (4.00-5.30); RED CELL DISTRIBUTION WIDTH 12.4 % (11.6-17.2); WHITE BLOOD COUNT 8.7 TH/MM3 (4.0-11.0)
[2017-04-29 12:00] LABS: POTASSIUM 4.3 MEQ/L (3.5-5.1)
[2017-04-29] MEDS: RESP: ALBUTEROL 0.63 MG/3 ML NEB (SCH) NEB ×3 (12:07→19:18)
[2017-04-29 12:22] LABS: CKMB 0.8 NG/ML (0.5-3.6)
--- NOTE | 2017-04-29 13:52 | HHI.PR ---
Subjective Remarks Follow-up encephalopathy. Patient was still sleeping when I evaluated her this morning. She was arousable following simple commands. According to RN, she slept well. MAXIMUM TEMPERATURE 101 Objective Vitals Vital Signs Date Time Temp Pulse Resp B/P (MAP) Pulse Ox O2 Delivery O2 Flow Rate FiO2 04/29/17 12:07 98 Nasal Cannula 1.00 04/29/17 11:26 98.1 78 16 115/72 (86) 98 04/29/17 07:55 97.9 80 16 122/73 (89) 98 04/29/17 06:03 98.4 77 18 147/97 (114) 99 04/29/17 00:55 98.0 106 18 142/83 (102) 98 04/28/17 19:17 101.1 105 14 144/68 (93) 91 04/28/17 16:29 97.9 106 20 139/65 (89) 95 Result Diagram: 04/29/17 1107 04/29/17 1107 Imaging Last Impressions Hip and Pelvis X-Ray 04/28/17 0000 Signed Impressions: Service Date/Time: Friday, April 28, 2017 05:18 - CONCLUSION: Post surgical changes as above. Kristopher Harman MD Head CT 04/26/17 0000 Signed Impressions: Service Date/Time: April 22:47 - CONCLUSION: 1. No evidence of acute intracranial pathology. No masses are identified. Kristopher Harman MD Chest X-Ray 04/26/17 0000 Signed Impressions: Service Date/Time: April 23:19 - CONCLUSION: 1. Cardiomegaly. No acute pulmonary disease. Kristopher Harman MD Objective Remarks GENERAL: Elderly white female in no acute distress HEENT: PERRLA, EOMI. No scleral icterus or conjunctival pallor. No lid lag or facial droop. Neck: Supple CARDIOVASCULAR: Regular rate and rhythm. No obvious murmurs to auscultation. No chest tenderness to palpation. RESPIRATORY: No obvious rhonchi or wheezing. Clear to auscultation. Breath sounds equal bilaterally. GASTROINTESTINAL: Abdomen soft, non-tender, nondistended. BS normal. MUSCULOSKELETAL: Extremities without clubbing, cyanosis, or edema. No obvious deformities. Right LE brace. Right hip wound with no signs of infection NEUROLOGICAL: Lethargic following simple commands. No focal neurologic deficits. Moving both upper and lower extremities spontaneously. Procedures None A/P Problem List: (1) Encephalopathy ICD Code: G93.40 - Encephalopathy, unspecified (2) UTI (urinary tract infection) ICD Code: N39.0 - Urinary tract infection, site not specified (3) Dementia ICD Code: F03.90 - Unspecified dementia without behavioral disturbance (4) Status post right hip replacement ICD Code: Z96.641 - Presence of right artificial hip joint Assessment and Plan 1. Encephalopathy: Likely multifactorial-underlying dementia w/ recent hospitalization/surgical intervention, sleep deprivation, constipation, meds and UTI. CT Head w/ no acute findings, images reviewed by me. EEG and ammonia level unremarkable. Fluctuating mental status. Sleep hygiene. Follow-up neurology consult. Patient with transient fever last night. Obtain repeat CBC and a BMP. Blood cultures. Consider LP if she remains encephalopathic. ( Patient on Xarelto and Toradol) 2. UTI: U/a w/ small LE, mild bacteriuria, in light of low-grade temp, leukocytosis and AMS, will treat for UTI w/ IV Rocephin last dose today. 3. Dementia: Resume home Namenda 4. Right Hip Lee-Arthroplasty: Recent admit 04/23-04/26/17 w/ right hip fx after fall, s/p Right Hip Lee-Arthroplasty 04/23/17. Continue w/ PT. Avoid narcotics if possible 5. Hyperglycemia. A1c 5.7 6. Constipation. Still no BM. Discussed with RN to continue bowel regimen and give as needed medications 7. FEN. IV fluids if by mouth is less than 50% DVT Prophylaxis: Resume Xarelto Discharge Planning Not ready for discharge Reji Sherman MD Apr 29, 2017 13:52
--- NOTE | 2017-04-29 14:42 | MB ---
cc: VALE KULKARNI M.D. DATE OF CONSULTATION: 04/29/2017. REASON FOR CONSULTATION: Mental status change. HISTORY OF PRESENT ILLNESS: Ms. Mason is a 77-year-old woman with dementia over the past several years. She underwent hip surgery with general anesthesia last week, and following that her family feels she was somewhat confused and was brought to the emergency room and was found also to have urinary tract infection. Since starting antibiotics and fluids, she has been showing improvement according to the family. PAST MEDICAL HISTORY: Her past medical history is remarkable for: 1. History of dementia for the past several years. 2. History of recent hip surgery. 3. Hypertension. CURRENT MEDICATIONS: 1. Diltiazem. 2. Senna. 3. Namenda 5 milligrams twice a day. 4. Xarelto 10 milligrams daily. 5. Zofran PRN. 6. Lactulose. 7. At home, the family relates that she was on Aricept. NEUROLOGIC EXAMINATION: VITAL SIGNS: Blood pressure 115/72, pulse 70, respirations 16, temperature 98 degrees. HIGHER CORTICAL FUNCTIONS: She is alert, disoriented to date and place. Recalls 0/3 objects in 3 minutes. Remote memory is intact. She is able to tell me where she is from and what the name of her high school was. Speech is hypophonic but fluent. Praxis is abnormal. There is no neglect. CRANIAL NERVES Cranial nerves intact. MOTOR EXAM: No focal deficit is identified. REFLEXES: Symmetric. IMAGING STUDIES: CT of the brain shows no acute change. LABS: White count 8700, hemoglobin 13, hematocrit 38.7%, platelet count 223,000. Sodium is 140, potassium 4.3, chloride 104, carbon dioxide is 31, the BUN is 12, creatinine is 0.85, GFR is 65, glucose 157. IMPRESSION: Dementia with probable encephalopathy from a urinary tract infection. RECOMMENDATIONS: Will obtain an MRI of the brain to rule out any other potential etiologies. MD ROWAN Rivera/MURPHY /2:24 PM /2:40 PM
--- NOTE | 2017-04-29 16:33 | RADRPT ---
EXAM DATE/TIME: 04/29/2017 15:24 [facility] COMPARISON: CT BRAIN W/O CONTRAST, April 26, 2017, 22:47. INDICATIONS : Confusion. MEDICAL HISTORY : Dementia. Hypertension. SURGICAL HISTORY : Right hip replacement. ENCOUNTER: Initial ACUITY: 3 day PAIN SCORE: 4/10 LOCATION: Right hip. TECHNIQUE: Multiplanar, multisequence MRI of the brain was performed without contrast. FINDINGS: CEREBRUM: There is moderate generalized atrophy. Ventricles are normal in size given the degree of atrophy pres ent. No evidence of midline shift, mass lesion, hemorrhage or acute infarction. No extraaxial fluid collections are seen. The pituitary gland and suprasellar cistern are normal in configuration. WHITE MATTER: There is mild to moderate periventricular and subcortical white matter signal change and bilaterally. POSTERIOR FOSSA: The cerebellum and brainstem demonstrate no acute finding. The 4th ventricle is midline. The cerebel lopontine angle is unremarkable. The cerebellar tonsils are normal in position. DIFFUSION IMAGING: No focal areas of restricted diffusion are seen. No evidence of acute infarction. EXTRACRANIAL: The visualized portions of the orbits and paranasal sinuses are unremarkable. CONCLUSION: 1. No acute intracranial abnormality is identified. There are no findings to indicate recent ischemia . 2. Chronic changes include generalized atrophy and periventricular and subcortical white matter signa l changes characteristic of chronic microvascular ischemia. Monroe James MD on April 29, 2017 at 16:26 Board Certified Radiologist. This report was verified electronically.
[2017-04-30] MEDS: NS + KCL 20 MEQ INJ 1,000 ML IV PRN (02:32)
[2017-04-30 03:58] VITALS: BP 137/74; PULSE 76; RESP 18; TEMP 98.1; O2SAT 97
--- NOTE | 2017-04-30 06:25 | HHI.PR ---
Review/Management Diagnosis Dementia with exacerbation of mental status sx due to encephalopathy from UTI Diagnosis/Plan: Subjective Subjective Comments No acute events reported Active Medications Current Medications Medications (Trade) Dose Ordered Sig/Jena Route Start Time Stop Time Status Last Admin (NS Flush) 2 ml UNSCH PRN IV FLUSH 04/27/17 00:00 (NS Flush) 2 ml BID IV FLUSH 04/27/17 09:00 04/29/17 20:35 (Zofran Inj) 4 mg Q6H PRN IVP 04/27/17 00:00 (Tylenol) 650 mg Q6H PRN PO 04/27/17 00:00 (Cathy-Colace) 1 tab BID PO 04/27/17 09:00 04/29/17 20:35 (Milk Of Magnesia Liq) 30 ml Q12H PRN PO 04/27/17 00:00 (Senokot) 17.2 mg Q12H PRN PO 04/27/17 00:00 (Dulcolax Supp) 10 mg DAILY PRN RECTAL 04/27/17 00:00 (Lactulose Liq) 30 ml DAILY PRN PO 04/27/17 00:00 (Cardizem Cd) 120 mg DAILY PO 04/27/17 09:00 04/29/17 10:11 (Namenda) 5 mg BID PO 04/27/17 09:00 04/29/17 20:35 (Xarelto) 10 mg DAILY PO 04/27/17 09:00 04/29/17 10:10 (Oscal-D 250-125) 500 mg BID PO 04/27/17 09:00 04/29/17 20:35 (Toradol Inj) 15 mg Q6H PRN IV PUSH 04/29/17 08:15 05/04/17 08:14 Potassium Chloride/Sodium Chloride 1,000 ml @ 70 mls/hr [id number] PRN IV 04/29/17 10:00 04/30/17 02:32 (Albuterol Neb) 0.63 mg QID NEB NEB 04/29/17 12:00 04/29/17 19:18 Allergies Allergies Coded Allergies Sulfa (Sulfonamide Antibiotics) (Unverified Allergy, Severe, 04/26/17) Exam I&O / VS Vital Signs Date Time Temp Pulse Resp B/P (MAP) Pulse Ox O2 Delivery O2 Flow Rate FiO2 04/30/17 03:58 98.1 76 18 137/74 (95) 97 04/29/17 23:37 98.8 91 18 120/65 (83) 97 04/29/17 20:25 97.8 60 18 101/58 (72) 94 04/29/17 19:19 94 04/29/17 16:16 96 21 04/29/17 16:06 97.7 74 16 107/65 (79) 95 04/29/17 12:07 98 Nasal Cannula 1.00 04/29/17 11:26 98.1 78 16 115/72 (86) 98 04/29/17 07:55 97.9 80 16 122/73 (89) 98 Exam Comments alert, disoriented to date and place poor recent memory. Speech normal with no sign of aphasia. Follows commands CN intact MOTOR--no focal deficits. Objective Radiology Results MRI brain is normal for age with chronic changes--atrophy and mild chronic ischemic demyelination Micro and Labs Laboratory Tests Test 04/29/17 11:07 White Blood Count 8.7 Red Blood Count 4.17 Hemoglobin 13.0 Hematocrit 38.7 Mean Corpuscular Volume 92.8 Mean Corpuscular Hemoglobin 31.1 Mean Corpuscular Hemoglobin Concent 33.5 Red Cell Distribution Width 12.4 Platelet Count 223 Mean Platelet Volume 9.1 Neutrophils (%) (Auto) 65.0 Lymphocytes (%) (Auto) 15.3 Monocytes (%) (Auto) 14.2 Eosinophils (%) (Auto) 4.8 Basophils (%) (Auto) 0.7 Neutrophils # (Auto) 5.6 Lymphocytes # (Auto) 1.3 Monocytes # (Auto) 1.2 Eosinophils # (Auto) 0.4 Basophils # (Auto) 0.1 CBC Comment DIFF FINAL Differential Comment Blood Urea Nitrogen 12 Creatinine 0.85 Random Glucose 157 Calcium Level 8.6 Sodium Level 140 Potassium Level 4.3 Chloride Level 104 Carbon Dioxide Level 31.0 Anion Gap 5 Estimat Glomerular Filtration Rate 65 Lactic Acid Level 1.5 Magnesium Level 2.1 Total Creatine Kinase 300 Creatine Kinase MB 0.8 Creatine Kinase MB % 0.3 Date/Time Source Procedure Growth Status 04/29/17 11:07 Blood Peripheral Aerobic Blood Culture Pending Received 04/29/17 11:07 Blood Peripheral Anaerobic Blood Culture Pending Received Moises Reese PhD MD Apr 30, 2017 06:25
[2017-04-30 08:10] VITALS: BP 142/63; PULSE 85; RESP 22; TEMP 98.5; O2SAT 96
[2017-04-30] MEDS: SODIUM CHLORIDE 0.9% FLUSH 10 ML FLUSH IV FLUSH SCH ×2 (08:41→20:32)
[2017-04-30] MEDS: DILTIAZEM-CD 120 MG CAP ER PO SCH (08:42)
[2017-04-30] MEDS: DOCUSATE SODIUM 50 MG/SENNA 8.6 MG TAB PO SCH ×2 (08:42→20:32)
[2017-04-30] MEDS: RIVAROXABAN 10 MG TAB PO SCH (08:42)
[2017-04-30] MEDS: MEMANTINE HCL 5 MG TAB PO SCH ×2 (08:43→20:32)
[2017-04-30] MEDS: RESP: ALBUTEROL 0.63 MG/3 ML NEB (SCH) NEB ×4 (08:43→20:05)
[2017-04-30] MEDS: CALCIUM/VITAMIN D 250 MG/125 U TAB PO SCH ×2 (08:43→20:32)
[2017-04-30 12:20] VITALS: BP 120/60; PULSE 87; RESP 20; TEMP 97.5; O2SAT 97
--- NOTE | 2017-04-30 13:47 | HHI.DCPOC ---
Discharge Care Plan Diagnosis: (1) Encephalopathy Your Health Problems Are: Difficulty with ADL Exercise Tolerance Goals to Promote Your Health * To prevent worsening of your condition and complications * To maintain your health at the optimal level Directions to Meet Your Goals Take your medications as prescribed Follow your dietary instruction Follow activity as directed Keep your appointments as scheduled Take your immunizations and boosters as scheduled If your symptoms worsen call your PCP, if no PCP go to Urgent Care Center or Emergency Room Smoking is Dangerous to Your Health. Avoid second hand smoke Call the 24-hour hour crisis hotline for domestic abuse at Reji Sherman MD Apr 30, 2017 13:47
--- NOTE | 2017-04-30 13:49 | HHI.PR ---
Subjective Remarks Follow-up dementia. She is alert and oriented following simple commands. She has no complaints. Seen with family. Discussed with RN Objective Vitals Vital Signs Date Time Temp Pulse Resp B/P (MAP) Pulse Ox O2 Delivery O2 Flow Rate FiO2 04/30/17 12:20 97.5 87 20 120/60 (80) 97 04/30/17 08:10 98.5 85 22 142/63 (89) 96 04/30/17 03:58 98.1 76 18 137/74 (95) 97 04/29/17 23:37 98.8 91 18 120/65 (83) 97 04/29/17 20:25 97.8 60 18 101/58 (72) 94 04/29/17 19:19 94 04/29/17 16:16 96 21 04/29/17 16:06 97.7 74 16 107/65 (79) 95 I/O 04/29/17 04/29/17 04/29/17 04/30/17 04/30/17 04/30/17 07:00 15:00 23:00 07:00 15:00 23:00 Intake Total 100 ml Balance 100 ml Intake IV Total 100 ml Result Diagram: 04/29/17 1107 04/29/17 1107 Imaging Last Impressions Brain MRI 04/29/17 0000 Signed Impressions: Service Date/Time: Saturday, April 29, 2017 15:24 - CONCLUSION: 1. No acute intracranial abnormality is identified. There are no findings to indicate recent ischemia. 2. Chronic changes include generalized atrophy and periventricular and subcortical white matter signal changes characteristic of chronic microvascular ischemia. Monroe James MD Hip and Pelvis X-Ray 04/28/17 0000 Signed Impressions: Service Date/Time: Friday, April 28, 2017 05:18 - CONCLUSION: Post surgical changes as above. Kristopher Harman MD Head CT 04/26/17 0000 Signed Impressions: Service Date/Time: April 22:47 - CONCLUSION: 1. No evidence of acute intracranial pathology. No masses are identified. Kristopher Harman MD Chest X-Ray 04/26/17 0000 Signed Impressions: Service Date/Time: April 23:19 - CONCLUSION: 1. Cardiomegaly. No acute pulmonary disease. Kristopher Harman MD Objective Remarks GENERAL: Elderly white female in no acute distress HEENT: PERRLA, EOMI. No scleral icterus or conjunctival pallor. No lid lag or facial droop. Neck: Supple CARDIOVASCULAR: Regular rate and rhythm. No obvious murmurs to auscultation. No chest tenderness to palpation. RESPIRATORY: No obvious rhonchi or wheezing. Clear to auscultation. Breath sounds equal bilaterally. GASTROINTESTINAL: Abdomen soft, non-tender, nondistended. BS normal. MUSCULOSKELETAL: Extremities without clubbing, cyanosis, or edema. No obvious deformities. Right LE brace. Right hip wound with no signs of infection NEUROLOGICAL: Awake and alert following simple commands. No focal neurologic deficits. Moving both upper and lower extremities spontaneously. Procedures None A/P Problem List: (1) Encephalopathy ICD Code: G93.40 - Encephalopathy, unspecified (2) UTI (urinary tract infection) ICD Code: N39.0 - Urinary tract infection, site not specified (3) Dementia ICD Code: F03.90 - Unspecified dementia without behavioral disturbance (4) Status post right hip replacement ICD Code: Z96.641 - Presence of right artificial hip joint Assessment and Plan 1. Encephalopathy: Likely multifactorial-underlying dementia w/ recent hospitalization/surgical intervention, sleep deprivation, constipation, meds and UTI. CT Head w/ no acute findings, as well as brain MRI. EEG and ammonia level unremarkable. Much improved. Sleep hygiene. No recurrence of fever 2. UTI: Status post Rocephin 3. Dementia: Resume home Namenda 4. Right Hip Lee-Arthroplasty: Recent admit 04/23-04/26/17 w/ right hip fx after fall, s/p Right Hip Lee-Arthroplasty 04/23/17. Continue w/ PT. Avoid narcotics if possible 5. Hyperglycemia. A1c 5.7 6. Constipation. Stable. Discussed with RN to continue bowel regimen and give as needed medications 7. FEN. IV fluids if by mouth is less than 50% DVT Prophylaxis: Resume Xarelto Discharge Planning Stable for discharge patient referred to Reji Clarke MD Apr 30, 2017 13:49
[2017-04-30 15:51] VITALS: BP 111/59; PULSE 86; RESP 20; TEMP 97.5; O2SAT 96
[2017-04-30 21:27] VITALS: BP 129/58; PULSE 67; RESP 18; TEMP 98.4; O2SAT 95
[2017-05-01] VITALS (10 sets, daily range): BP systolic 120–198; BP diastolic 64–103; PULSE 81–105; RESP 18–24; TEMP 97.6–98.8; O2SAT 94–98
[2017-05-01] MEDS: NS + KCL 20 MEQ INJ 1,000 ML IV PRN ×2 (05:56→23:02)
[2017-05-01] MEDS: RESP: ALBUTEROL 0.63 MG/3 ML NEB (SCH) NEB ×5 (07:15→23:00)
[2017-05-01] MEDS: RIVAROXABAN 10 MG TAB PO SCH (09:23)
[2017-05-01] MEDS: MEMANTINE HCL 5 MG TAB PO SCH ×2 (09:24→23:39)
[2017-05-01] MEDS: DILTIAZEM-CD 120 MG CAP ER PO SCH (09:24)
[2017-05-01] MEDS: DOCUSATE SODIUM 50 MG/SENNA 8.6 MG TAB PO SCH ×2 (09:24→21:00)
[2017-05-01] MEDS: CALCIUM/VITAMIN D 250 MG/125 U TAB PO SCH ×2 (09:24→21:00)
[2017-05-01] MEDS: SODIUM CHLORIDE 0.9% FLUSH 10 ML FLUSH IV FLUSH SCH ×2 (09:25→23:03)
[2017-05-01] MEDS ORDERED: POLYETHYLENE GLYCOL 17 GM PKG PO ONE (10:00)
--- NOTE | 2017-05-01 13:13 | HHI.PR ---
Subjective Remarks Follow-up Encephalopathy. She is confused again this morning. No new meds. Apparently slept well. No BM for the past 5 days. Discussed with family and RN Objective Vitals Vital Signs Date Time Temp Pulse Resp B/P (MAP) Pulse Ox O2 Delivery O2 Flow Rate FiO2 05/01/17 11:43 98.2 101 24 147/78 (101) 96 05/01/17 07:58 97.6 83 22 140/72 (94) 96 05/01/17 07:17 98 21 05/01/17 06:22 21 05/01/17 04:42 97.9 81 18 179/75 (109) 95 05/01/17 00:08 98.0 91 18 127/64 (85) 97 04/30/17 21:27 98.4 67 18 129/58 (81) 95 04/30/17 15:51 97.5 86 20 111/59 (76) 96 Result Diagram: 04/29/17 1107 04/29/17 1107 Imaging Last Impressions Brain MRI 04/29/17 0000 Signed Impressions: Service Date/Time: Saturday, April 29, 2017 15:24 - CONCLUSION: 1. No acute intracranial abnormality is identified. There are no findings to indicate recent ischemia. 2. Chronic changes include generalized atrophy and periventricular and subcortical white matter signal changes characteristic of chronic microvascular ischemia. Monroe James MD Hip and Pelvis X-Ray 04/28/17 0000 Signed Impressions: Service Date/Time: Friday, April 28, 2017 05:18 - CONCLUSION: Post surgical changes as above. Kristopher Harman MD Head CT 04/26/17 0000 Signed Impressions: Service Date/Time: April 22:47 - CONCLUSION: 1. No evidence of acute intracranial pathology. No masses are identified. Kristopher Harman MD Chest X-Ray 04/26/17 0000 Signed Impressions: Service Date/Time: April 23:19 - CONCLUSION: 1. Cardiomegaly. No acute pulmonary disease. Kristopher Harman MD Objective Remarks GENERAL: Elderly white female in no acute distress HEENT: PERRLA, EOMI. No scleral icterus or conjunctival pallor. No lid lag or facial droop. Neck: Supple CARDIOVASCULAR: Regular rate and rhythm. No obvious murmurs to auscultation. No chest tenderness to palpation. RESPIRATORY: No obvious rhonchi or wheezing. Clear to auscultation. Breath sounds equal bilaterally. GASTROINTESTINAL: Abdomen soft, non-tender, nondistended. BS normal. MUSCULOSKELETAL: Extremities without clubbing, cyanosis, or edema. No obvious deformities. Right LE brace. Right hip wound with no signs of infection NEUROLOGICAL: Awake but confused. No focal neurologic deficits. Moving both upper and lower extremities spontaneously. Procedures None A/P Problem List: (1) Encephalopathy ICD Code: G93.40 - Encephalopathy, unspecified (2) UTI (urinary tract infection) ICD Code: N39.0 - Urinary tract infection, site not specified (3) Dementia ICD Code: F03.90 - Unspecified dementia without behavioral disturbance (4) Status post right hip replacement ICD Code: Z96.641 - Presence of right artificial hip joint Assessment and Plan 1. Encephalopathy: Likely multifactorial-underlying dementia w/ recent hospitalization/surgical intervention, sleep deprivation, constipation, meds and UTI. CT Head w/ no acute findings, as well as brain MRI. EEG and ammonia level unremarkable. Fluctuating mental status. Sleep hygiene. No recurrence of fever 2. UTI: Status post Rocephin 3. Dementia: Resume home Namenda 4. Right Hip Lee-Arthroplasty: Recent admit 04/23-04/26/17 w/ right hip fx after fall, s/p Right Hip Lee-Arthroplasty 04/23/17. Continue w/ PT. Avoid narcotics if possible 5. Hyperglycemia. A1c 5.7 6. Constipation. No BM for several days. MiraLAX 1 and start daily lactulose until first bowel movement. Discussed with RN to continue bowel regimen and give as needed medications 7. FEN. IV fluids if by mouth is less than 50% DVT Prophylaxis: Resume Xarelto Discharge Planning Possible discharge later today if patient has a bowel movement with improved mental status Reji Sherman MD May 01, 2017 13:13
[2017-05-01] MEDS ORDERED: Lactulose Liq PO (14:18)
[2017-05-01] MEDS: LACTULOSE SYRUP 20 GM/30 ML CUP PO SCH (14:35)
--- NOTE | 2017-05-01 16:09 | PD.CONS ---
Consult Service Palliative Care Consult Requested By Dr. Sherman / [place] Primary Care Physician Elver Zambrano M.D. Reason for Consultation a. To assist with evaluation and management of symptoms including: Confusion , constipation, debility. b. To assist medical decision maker(s) with: better understanding of current medical conditions; weighing benefits/burdens of medical treatment options; making medical treatment decisions. HPI History of Present Illness Mrs Mason is a 77 years old female with a past medical history of dementia, and HTN. Patient was sent to ER on 04/26/17 from [facility] to be evaluated for altered mental status. Patient was noted by her daughter to be more confused than her baseline at the SNF. Patient was recently admitted in the hospital from 04/23/17-04/26/17fter mechanical fall. Patient underwent Right Hip Lee- Arthroplasty and was discharged to a SNF. Laboratory workup revealed WBC 11.8, hemoglobin 14.0, hematocrit 41.2, platelet count 182, sodium 138, potassium 4.0 , BUN/creatinine 06/08 random glucose 118, total protein 6.8, albumin 2.7. Head CT revealed no evidence of acute intracranial pathology and no masses identified. Chest x-ray revealed cardiomegaly with no acute pulmonary disease. EKG showed sinus rhythm. Urine showed small LE. Patient started on Rocephin. Patient was admitted for further evaluation. EEG done on 04/27/17 revealed mildly abnormal study on the basis of generalized slowing consistent with a mild encephalopathy. Neurology Dr. Reese 04/29/17 consulted for management of encephalopathy. Brain MRI on 04/29/17 revealed no intracranial abnormality, no recent ischemia and chronic changes include generalized atrophy and periventricular and subcortical white matter signal changes characteristic of chronic microvascular ischemia. Clinical course complicated with persistent confusion and constipation. Palliative care consulted. Patient seen in the ED room F68 in the presence of her , and 2 adult daughters. Patient is in bed awake, oriented to person only and pleasantly confused. Patient unable to answer simple questions, speech is completely nonsensical. Patient not showing any signs of discomfort or distress. Patient is afebrile. SBP 140s to 170s. O2 saturation mid to high 90s on room air. No recent laboratory workup all imaging. Obtained psychosocial and medical history. Discussed current patient's condition. Patient had 2 daughters, patient is having on and off periods of confusion. Addressed code status, discussed the risks, benefits and limitations of CPR. Patient's daughter Annie Mason who is patient's healthcare surrogate/ proxy made to patient DNR/DNI. Introduced hospice philosophy and benefits. At this time, daughters are hoping that patient will improve form her current state and maybe in the long run will consider hospice. Patient's daughters, are hoping that patient may benefit from physical therapy and they are aware that patient`s needs will most likely increase and that she will require more assistance with care given her medical condition. Daughters understand that patient will need long-term care and are working on trying to find the best place for their mother. Family appreciative of palliative consult. . Function/Cognitive Trajectory Prior to recent hospitalization patient lived with her who also also has dementia and they both had a caregiver for 8 hours a day. Per patient's daughter who lives close by patient was able to perform all her ADLs with minimal assistance. Patient was hospitalized and transferred to [facility]. She was using a walker at the correction. Patient has dementia but was able to verbalize her needs. . Review of Systems ROS Limitations: Clinical Condition, Altered Mental Status Constitutional: COMPLAINS OF: Change in appetite Eyes: DENIES: Eye inflammation Ears, nose, mouth, throat: DENIES: Nasal discharge Respiratory: DENIES: Cough, Shortness of breath Cardiovascular: DENIES: Lower Extremity Edema Gastrointestinal: COMPLAINS OF: Constipation Musculoskeletal: COMPLAINS OF: Decreased range of motion Hematologic/Lymphatics: COMPLAINS OF: Bruising Psychiatric: COMPLAINS OF: Confusion Past Family Social History Coded Allergies: Sulfa (Sulfonamide Antibiotics) (Unverified Allergy, Severe, 04/26/17) Past Medical History HTN Dementia . Past Surgical History Right Hip Lee-Arthroplasty 04/23/17 ORIF radius and ulna. . Reported Medications Lactulose Liq] 30 ML Syrp 30 Ml PO DAILY 5 Days Qc Milk of Magnesia (Magnesium Hydroxide) 400 Mg/5 Ml Brenda 30 Ml PO BID PRN Calcium 600+D 200 (Calcium Carbonate-Vitamin D) 600-200 Mg-Unit Tab 1 Tab PO BID Ergocalciferol 50,000 Unit Cap 50,000 Units PO Q7D Xarelto (Rivaroxaban) 10 Mg Tab 10 Mg PO DAILY Walker/Adult/Folding (Device) 1 Mis Mis Ea .ROUTE DIRECTED Cartia Xt (Diltiazem ER 24 HR) 120 Mg Caper 120 Mg PO DAILY Namenda (Memantine) 5 Mg Tab 5 Mg PO BID . Current Medications Medications (Trade) Dose Ordered Sig/Jena Route Start Time Stop Time Status Last Admin (NS Flush) 2 ml UNSCH PRN IV FLUSH 04/27/17 00:00 (NS Flush) 2 ml BID IV FLUSH 04/27/17 09:00 04/30/17 08:41 (Zofran Inj) 4 mg Q6H PRN IVP 04/27/17 00:00 (Tylenol) 650 mg Q6H PRN PO 04/27/17 00:00 (Acthy-Colace) 1 tab BID PO 04/27/17 09:00 05/01/17 09:24 (Milk Of Magnesia Liq) 30 ml Q12H PRN PO 04/27/17 00:00 (Senokot) 17.2 mg Q12H PRN PO 04/27/17 00:00 (Dulcolax Supp) 10 mg DAILY PRN RECTAL 04/27/17 00:00 (Cardizem Cd) 120 mg DAILY PO 04/27/17 09:00 05/01/17 09:24 (Namenda) 5 mg BID PO 04/27/17 09:00 05/01/17 09:24 (Xarelto) 10 mg DAILY PO 04/27/17 09:00 05/01/17 09:23 (Oscal-D 250-125) 500 mg BID PO 04/27/17 09:00 05/01/17 09:24 (Toradol Inj) 15 mg Q6H PRN IV PUSH 04/29/17 08:15 05/04/17 08:14 Potassium Chloride/Sodium Chloride 1,000 ml @ 70 mls/hr [id number] PRN IV 04/29/17 10:00 05/01/17 05:56 (Albuterol Neb) 0.63 mg QID NEB NEB 04/29/17 12:00 05/01/17 11:55 (Lactulose Liq) 30 ml DAILY PO 05/01/17 13:15 05/01/17 14:35 Family History Mother- at age 87 from complications of CHF Father- 80 very young age from complications of an aneurysm . Substance Use Tobacco: Denies Alcohol:Denies Prescription med abuse: Denies Illicits:Denies . Psychosocial History Patient was born and raised in [place]. Patient has been to her for 49 years. 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 Patient and her used to be snore periods and they finally moved to leave in [place] in 2008. Patient has 4 adult children 3 daughters ,1 son and 6 grandchildren. . Spiritual/Cultural Factors . Living Will: Copy in medical record Health Care Surrogate: Copy in medical record Durable Power of Bulb Tester: Copy in medical record Date completed: March 17, 2015 Health Care Surrogate(s): Daughter - POA/ HCS[facility]Proxy[facility] [phone] Daughter-alternate HCS/Proxy-Roxana [facility] [phone] Documented care wishes: Standard VERBIAGE. . Family/friends goals: Family hoping for patient to have a bowel movement and get discharged to rehabilitation. . Ethical and Legal Issues No ethical and legal issues identified at this time. . Physical Exam Vital Signs Date Time Temp Pulse Resp B/P (MAP) Pulse Ox O2 Delivery O2 Flow Rate FiO2 05/01/17 11:43 98.2 101 24 147/78 (101) 96 05/01/17 07:58 97.6 83 22 140/72 (94) 96 05/01/17 07:17 98 21 05/01/17 06:22 21 05/01/17 04:42 97.9 81 18 179/75 (109) 95 05/01/17 00:08 98.0 91 18 127/64 (85) 97 04/30/17 21:27 98.4 67 18 129/58 (81) 95 04/30/17 15:51 97.5 86 20 111/59 (76) 96 Exam CONSTITUTIONAL/GENERAL: This is an adequately nourished patient, in no apparent distress. TUBES/LINES/DRAINS: PIV SKIN: No jaundice,lesions. Rash to hands. Ecchymoses on upper extremities. No wounds seen anteriorly. Skin temperature appropriate. Not diaphoretic. HEAD: Atraumatic. Normocephalic. EYES: Pupils equal and round and reactive. Extraocular motions intact. No scleral icterus. No injection or drainage. Fundi not examined. ENT:Nose without bleeding or purulent drainage. Moist oral mucosa. NECK: Trachea midline. Supple, nontender.. CARDIOVASCULAR: Regular rate and rhythm without murmurs, gallops, or rubs. No JVD. Peripheral pulses symmetric. RESPIRATORY/CHEST: Symmetric, unlabored respirations. Clear to auscultation. Breath sounds equal bilaterally. No wheezes, rales, or rhonchi. GASTROINTESTINAL: Abdomen soft, non-tender, nondistended. No hepato-splenomegaly , or palpable masses. No guarding. Bowel sounds present. GENITOURINARY: Without palpable bladder distension. Selby catheter in place. MUSCULOSKELETAL: Extremities without edema. No calf tenderness. No mottling or clubbing.Right LE brace. NEUROLOGICAL: Awake and oriented to person only. Confused. Spontaneously moves all extremities. PSYCHIATRIC: No obvious anxiety/depression. no apparent hallucinations or other psychotic thought process. . Diagnostic Tests Laboratory Laboratory Tests Test 04/29/17 11:07 White Blood Count 8.7 TH/MM3 (4.0-11.0) Red Blood Count 4.17 MIL/MM3 (4.00-5.30) Hemoglobin 13.0 GM/DL (11.6-15.3) Hematocrit 38.7 % (35.0-46.0) Mean Corpuscular Volume 92.8 FL (80.0-100.0) Mean Corpuscular Hemoglobin 31.1 PG (27.0-34.0) Mean Corpuscular Hemoglobin Concent 33.5 % (32.0-36.0) Red Cell Distribution Width 12.4 % (11.6-17.2) Platelet Count 223 TH/MM3 (150-450) Mean Platelet Volume 9.1 FL (7.0-11.0) Neutrophils (%) (Auto) 65.0 % (16.0-70.0) Lymphocytes (%) (Auto) 15.3 % (9.0-44.0) Monocytes (%) (Auto) 14.2 % (0.0-8.0) Eosinophils (%) (Auto) 4.8 % (0.0-4.0) Basophils (%) (Auto) 0.7 % (0.0-2.0) Neutrophils # (Auto) 5.6 TH/MM3 (1.8-7.7) Lymphocytes # (Auto) 1.3 TH/MM3 (1.0-4.8) Monocytes # (Auto) 1.2 TH/MM3 (0-0.9) Eosinophils # (Auto) 0.4 TH/MM3 (0-0.4) Basophils # (Auto) 0.1 TH/MM3 (0-0.2) CBC Comment DIFF FINAL Differential Comment Blood Urea Nitrogen 12 MG/DL (7-18) Creatinine 0.85 MG/DL (0.50-1.00) Random Glucose 157 MG/DL (74-106) Calcium Level 8.6 MG/DL (8.5-10.1) Sodium Level 140 MEQ/L (136-145) Potassium Level 4.3 MEQ/L (3.5-5.1) Chloride Level 104 MEQ/L (98-107) Carbon Dioxide Level 31.0 MEQ/L (21.0-32.0) Anion Gap 5 MEQ/L (5-15) Estimat Glomerular Filtration Rate 65 ML/MIN (>89) Lactic Acid Level 1.5 mmol/L (0.4-2.0) Magnesium Level 2.1 MG/DL (1.5-2.5) Total Creatine Kinase 300 U/L (26-192) Creatine Kinase MB 0.8 NG/ML (0.5-3.6) Creatine Kinase MB % 0.3 % (0.0-4.0) Result Diagram: 04/29/17 1107 04/29/17 1107 Microbiology Microbiology Date/Time Source Procedure Growth Status 04/29/17 11:07 Blood Peripheral Aerobic Blood Culture - Preliminary NO GROWTH IN 2 DAYS Resulted 04/29/17 11:07 Blood Peripheral Anaerobic Blood Culture - Preliminary NO GROWTH IN 2 DAYS Resulted 04/29/17 11:00 Blood Peripheral Aerobic Blood Culture - Preliminary NO GROWTH IN 2 DAYS Resulted 04/29/17 11:00 Blood Peripheral Anaerobic Blood Culture - Preliminary NO GROWTH IN 2 DAYS Resulted Imaging Last Impressions Brain MRI 04/29/17 0000 Signed Impressions: Service Date/Time: Saturday, April 29, 2017 15:24 - CONCLUSION: 1. No acute intracranial abnormality is identified. There are no findings to indicate recent ischemia. 2. Chronic changes include generalized atrophy and periventricular and subcortical white matter signal changes characteristic of chronic microvascular ischemia. Monroe James MD Hip and Pelvis X-Ray 04/28/17 0000 Signed Impressions: Service Date/Time: Friday, April 28, 2017 05:18 - CONCLUSION: Post surgical changes as above. Kristopher Harman MD Head CT 04/26/17 0000 Signed Impressions: Service Date/Time: April 22:47 - CONCLUSION: 1. No evidence of acute intracranial pathology. No masses are identified. Kristopher Harman MD Chest X-Ray 04/26/17 0000 Signed Impressions: Service Date/Time: April 23:19 - CONCLUSION: 1. Cardiomegaly. No acute pulmonary disease. Kristopher Harman MD Patient/Family Conference Present at Family Conference: Patient's , and patient's 2 adult daughters Annie and Guerrero. . Family Conference Location: Bedside Issues Discussed: * Palliative care role, purpose, approach * Additional medical, psychosocial, and spiritual history * Patients general health, functional status, and cognitive changes in the months leading up to the current hospitalization * Patient/family understanding of the current medical problems. Dementia, UTI and hypertension * Patient/family understanding of prognosis * Patients goals of care as best understood from advance directives and/or conversations and/or values * Current medical treatment options and benefits/burdens of those options * Likely scenarios comparing ongoing aggressive care with a transition to comfort measures only * Hospice philosophy and benefits introduced. * Questions answered to the best of my ability * Palliative care contact information provided Assessment and Plan Disease Oriented Problem List: (1) Encephalopathy (2) Dementia (3) UTI (urinary tract infection) (4) Status post right hip replacement Symptom Scale: (1) Confusion Comment: Multifactorial. Patient has a history of dementia. Came in with increased confusion compared to her baseline. Treated for UTI with Rocephin. (2) Constipation Comment: Patient has not had a bowel movement for the last 5 days. . (3) Debility Comment: Multifactorial. Progressive. Patient was recently admitted in the hospital after a mechanical fall and is status post right hip replacement. . Pertinent Non-Medical Issues Psychosocial: Patient was born and raised in [place]. Patient has been to her for 49 years. 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 Patient and her used to be snore periods and they finally moved to leave in [place] in 2008. Patient has 4 adult children 3 daughters ,1 son and 6 grandchildren. Spiritual: Legal: Patient has signed POA and healthcare proxy from [place] Ethical issues impacting care: No ethical issues impacting care at this time. . Important Contacts -Augustine Mason [phone] Daughter - HCS/Proxy- Annie Mason [phone] Daughter-alternate HCS/Proxy-Roxana Mason [phone] Daughter-Guerrero Mason [phone] Son- Augustine Mason [phone] . Prognosis Mrs Mason is a 77 years old female with a past medical history of dementia, and HTN. Patient was sent to ER on 04/26/17 from [facility] to be evaluated for altered mental status. Patient was noted by her daughter to be more confused than her baseline at the SNF. Patient was recently admitted in the hospital from 04/23/17-04/26/17fter mechanical fall. Patient underwent Right Hip Lee- Arthroplasty and was discharged to a SNF. Given ongoing comorbidities, patient remains at risk for further complications, deterioration and decline. . Code Status: No Code Plan PLAN: Legal decision maker: Patient has a history of dementia and is currently not able and most likely will not be able to make any medical decisions for herself. Patient has designated her daughter Annie Mason is her healthcare proxy(MD)/surrogate and alternate healthcare proxy/ surrogate is her daughter Roxana Mason. Goals: Aggressive short of no code. At this time, daughters are hoping that patient will improve form her current state and maybe in the long run will consider hospice. Patient's daughters, are hoping that patient may benefit from physical therapy and they are aware that patient`s needs will most likely increase and that she will require more assistance with care given her medical condition. Daughters understand that patient will need long-term care and are working on trying to find the best place for their mother. CODE STATUS: DNR/DNI SYMPTOMS: * Confusion:Multifactorial. Patient has a history of dementia and was recently hospitalized and is s/p hip replacement. Came in with increased confusion compared to her baseline. Treated for UTI with Rocephin. * Constipation:Patient has not had a bowel movement for the last 5 days. Patient on lactulose 30 mL's daily, magnesium hydroxide 30 mL's q 12 hrs prn, Dulcolax suppository 10 mg daily prn, Senokot 17.2 mg twice a day and prn. No PRN medications have been administered yet. * Debility:Multifactorial. Progressive. Patient was recently admitted in the hospital after a mechanical fall and is status post right hip replacement. Patient is a risk for deterioration and physical deconditioning if she is not able to participate in physical therapy due to increased confusion. PT following and plans to discharge patient to rehabilitation in place. Palliative care will continue to follow the patient during hospital course as condition evolves, to assist patient/decision-maker with understanding of their medical conditions, weighing benefits/burdens of treatment options, for clarification of goals of treatment. Additionally will assist with any symptoms of palliative concern Thank you for the opportunity to participate in the care of Ms. Mason. Hodan Brown May 01, 2017 16:09
--- NOTE | 2017-05-01 20:15 | HHI.PR ---
Review/Management Diagnosis Dementia with exacerbation of mental status sx due to encephalopathy from UTI Now with decline in mental status with myoclonus Plan Lumbar puncture to r/o foot cutter infection EEG LABS--ammonia level, tsh, B12 Diagnosis/Plan: Subjective Subjective Comments Patient has been less responsive today, not reponding to questions, difficult to arouse Active Medications Current Medications Medications (Trade) Dose Ordered Sig/Jena Route Start Time Stop Time Status Last Admin (NS Flush) 2 ml UNSCH PRN IV FLUSH 04/27/17 00:00 (NS Flush) 2 ml BID IV FLUSH 04/27/17 09:00 04/30/17 08:41 (Zofran Inj) 4 mg Q6H PRN IVP 04/27/17 00:00 (Tylenol) 650 mg Q6H PRN PO 04/27/17 00:00 (Cathy-Colace) 1 tab BID PO 04/27/17 09:00 05/01/17 09:24 (Milk Of Magnesia Liq) 30 ml Q12H PRN PO 04/27/17 00:00 (Senokot) 17.2 mg Q12H PRN PO 04/27/17 00:00 (Dulcolax Supp) 10 mg DAILY PRN RECTAL 04/27/17 00:00 (Cardizem Cd) 120 mg DAILY PO 04/27/17 09:00 05/01/17 09:24 (Namenda) 5 mg BID PO 04/27/17 09:00 05/01/17 09:24 (Xarelto) 10 mg DAILY PO 04/27/17 09:00 05/01/17 09:23 (Oscal-D 250-125) 500 mg BID PO 04/27/17 09:00 05/01/17 09:24 (Toradol Inj) 15 mg Q6H PRN IV PUSH 04/29/17 08:15 05/04/17 08:14 Potassium Chloride/Sodium Chloride 1,000 ml @ 70 mls/hr [id number] PRN IV 04/29/17 10:00 05/01/17 05:56 (Albuterol Neb) 0.63 mg QID NEB NEB 04/29/17 12:00 05/01/17 15:43 (Lactulose Liq) 30 ml DAILY PO 05/01/17 13:15 05/01/17 14:35 Allergies Allergies Coded Allergies Sulfa (Sulfonamide Antibiotics) (Unverified Allergy, Severe, 04/26/17) Exam I&O / VS Vital Signs Date Time Temp Pulse Resp B/P (MAP) Pulse Ox O2 Delivery O2 Flow Rate FiO2 05/01/17 19:29 120/80 (93) Automatic Cuff 05/01/17 18:56 98.8 104 24 198/81 (120) 96 05/01/17 16:10 98.5 105 24 168/76 (106) 95 05/01/17 11:43 98.2 101 24 147/78 (101) 96 05/01/17 07:58 97.6 83 22 140/72 (94) 96 05/01/17 07:17 98 21 05/01/17 06:22 21 05/01/17 04:42 97.9 81 18 179/75 (109) 95 05/01/17 00:08 98.0 91 18 127/64 (85) 97 04/30/17 21:27 98.4 67 18 129/58 (81) 95 Exam Comments Very lethargic, arousable with difficulty. does not follow commands CN perrl motor--has diffuse myoclonus. Objective Radiology Results MRI brain--chronic ischemic change, atrophy Micro and Labs Date/Time Source Procedure Growth Status 04/29/17 11:07 Blood Peripheral Aerobic Blood Culture - Preliminary NO GROWTH IN 2 DAYS Resulted 04/29/17 11:07 Blood Peripheral Anaerobic Blood Culture - Preliminary NO GROWTH IN 2 DAYS Resulted Moises Reese PhD May 01, 2017 20:15
[2017-05-02 00:10] VITALS: BP 136/72; PULSE 78; RESP 19; TEMP 99.6; O2SAT 95
[2017-05-02 06:13] LABS: BASOPHIL % 0.5 % (0.0-2.0); EOSINOPHIL # 0.5 TH/MM3 (0-0.4); HEMATOCRIT 39.7 % (35.0-46.0); HEMO FLAGS DIFF FINAL; LYMPH % 13.2 % (9.0-44.0); LYMPHOCYTE # 1.2 TH/MM3 (1.0-4.8); MEAN CELL VOLUME 91.3 FL (80.0-100.0); MEAN CORPUSCULAR HEMOGLOBIN 30.8 PG (27.0-34.0); MEAN CORPUSCULAR HGB CONC 33.7 % (32.0-36.0); NEUT % 66.3 % (16.0-70.0); PLATELET COUNT 309 TH/MM3 (150-450); RED BLOOD COUNT 4.35 MIL/MM3 (4.00-5.30); RED CELL DISTRIBUTION WIDTH 12.9 % (11.6-17.2); WHITE BLOOD COUNT 9.1 TH/MM3 (4.0-11.0)
[2017-05-02 06:41] LABS: ALT (GPT) 30 U/L (10-53); ANION GAP 8 MEQ/L (5-15); AST (GOT) 25 U/L (15-37); BLOOD UREA NITROGEN 8 MG/DL (7-18); CHLORIDE 101 MEQ/L (98-107); GLOMERULAR FILTRATION RATE 87 ML/MIN (>89); POTASSIUM 3.9 MEQ/L (3.5-5.1); SODIUM (NA) 137 MEQ/L (136-145)
[2017-05-02 07:46] LABS: ALKALINE PHOSPHATASE 60 U/L (45-117); FREE T4 1.59 NG/DL (0.76-1.46); TOTAL BILIRUBIN ADULT 0.5 MG/DL (0.2-1.0)
[2017-05-02 07:54] VITALS: BP 121/66; PULSE 72; RESP 16; TEMP 98.4; O2SAT 96
[2017-05-02 08:10] VITALS: O2SAT 95
[2017-05-02] MEDS: RESP: ALBUTEROL 0.63 MG/3 ML NEB (SCH) NEB ×4 (08:10→20:00)
[2017-05-02 08:18] LABS: TOTAL PROTEIN SPE 6.5 GM/DL (6.0-7.6)
[2017-05-02] MEDS: CALCIUM/VITAMIN D 250 MG/125 U TAB PO SCH ×2 (09:00→21:00)
[2017-05-02] MEDS: SODIUM CHLORIDE 0.9% FLUSH 10 ML FLUSH IV FLUSH SCH ×2 (09:00→21:00)
[2017-05-02] MEDS: MEMANTINE HCL 5 MG TAB PO SCH ×2 (09:07→21:00)
[2017-05-02] MEDS: DOCUSATE SODIUM 50 MG/SENNA 8.6 MG TAB PO SCH ×2 (09:07→21:00)
[2017-05-02] MEDS: DILTIAZEM-CD 120 MG CAP ER PO SCH (09:07)
[2017-05-02] MEDS: LACTULOSE SYRUP 20 GM/30 ML CUP PO SCH (09:07)
--- NOTE | 2017-05-02 11:19 | HHI.HCPN ---
Reason for visit a. To assist with evaluation and management of symptoms including: Confusion , constipation, debility. b. To assist medical decision maker(s) with: better understanding of current medical conditions; weighing benefits/burdens of medical treatment options; making medical treatment decisions. Subjective/Interval History Patient seen in ED Room F68. Patient`s 2 daughters and at bedside. Patient sleepy but easily arousable, patient able to respond to simple questions appropriately today. Patient`s daughter reported that patient had a rough night , she was very confused and she does admit that this morning she has been responding to simple questions appropriately. Patient having pronounced myoclonus movements with all 4 extremities. medical delivery technician by room to do an EEG. Lumbar puncture ordered by Neurology. Patient remains afebrile. SBP 120s - 190s. O2 saturation mid 90s on room air. Patient has not had a BM for 6 days now. Spoke to bedside RN,, encouraged to try using Dulcolax suppository. Laboratory workup revealing WBC 9.9, hemoglobin 13.4, hematocrit 39.7, platelet count 309, sodium 137, potassium 3.9, BUN/creatinine 8/0.66, AST 25, ALT 30, alkaline phosphatase 60, total protein 6.5, albumin 2.6, ammonia 11, free T4 1 0.5,TSH 0.956. Recent imaging. Community DNR signed by daughter Annie Mason who is patient`s HCS. Original placed on the chart. Case discussed with bedside RN Ksenia Nazario and case loader operator Sameera. . Family/friend interactions Daughters and at bedside. . Advance Directives Living Will: Copy in medical record Health Care Surrogate: Copy in medical record Durable Power of [employer] Material Inspector: Copy in medical record Advance Directive Specifics Date completed: March 17, 2015 Health Care Surrogate(s): Daughter - POA/ HCS/Proxy- Annie NamanDona Mason [phone] Daughter-alternate HCS/Proxy-Roxana Mason [phone] Documented care wishes: Standard VERBIAGE. . Objective Vital Signs Date Time Temp Pulse Resp B/P (MAP) Pulse Ox O2 Delivery O2 Flow Rate FiO2 05/02/17 08:10 95 21 05/02/17 07:54 98.4 72 16 121/66 (84) 96 Manual Cuff/Auscultation 05/02/17 00:10 99.6 78 19 136/72 (93) 95 05/01/17 23:02 94 21 05/01/17 21:39 98.7 95 19 153/103 (120) 94 05/01/17 19:29 120/80 (93) Automatic Cuff 05/01/17 18:56 98.8 104 24 198/81 (120) 96 05/01/17 16:10 98.5 105 24 168/76 (106) 95 05/01/17 11:43 98.2 101 24 147/78 (101) 96 Physical Exam CONSTITUTIONAL/GENERAL: This is an adequately nourished patient, in no apparent distress. TUBES/LINES/DRAINS: PIV SKIN: No jaundice,lesions. Rash to hands. Ecchymoses on upper extremities. No wounds seen anteriorly. Skin temperature appropriate. Not diaphoretic. HEAD: Atraumatic. Normocephalic. EYES: Pupils equal and round and reactive. Extraocular motions intact. No scleral icterus. No injection or drainage. Fundi not examined. ENT:Nose without bleeding or purulent drainage. Moist oral mucosa. NECK: Trachea midline. Supple, nontender.. CARDIOVASCULAR: Regular rate and rhythm without murmurs, gallops, or rubs. No JVD. Peripheral pulses symmetric. RESPIRATORY/CHEST: Symmetric, unlabored respirations. Clear to auscultation. Breath sounds equal bilaterally. No wheezes, rales, or rhonchi. GASTROINTESTINAL: Abdomen soft, non-tender, nondistended. No hepato-splenomegaly , or palpable masses. No guarding. Bowel sounds present. GENITOURINARY: Without palpable bladder distension. Selby catheter in place. MUSCULOSKELETAL: Extremities without edema. No calf tenderness. No mottling or clubbing.Right LE brace. NEUROLOGICAL: Awake and oriented to person only. Confused, but was able to answer simple questions appropriately today.Patient having pronounced myoclonus movements with all 4 extremities. PSYCHIATRIC: No obvious anxiety/depression. no apparent hallucinations or other psychotic thought process. . Diagnostic Tests Laboratory Laboratory Tests Test 04/29/17 11:07 05/02/17 04:56 White Blood Count 8.7 TH/MM3 (4.0-11.0) 9.1 TH/MM3 (4.0-11.0) Red Blood Count 4.17 MIL/MM3 (4.00-5.30) 4.35 MIL/MM3 (4.00-5.30) Hemoglobin 13.0 GM/DL (11.6-15.3) 13.4 GM/DL (11.6-15.3) Hematocrit 38.7 % (35.0-46.0) 39.7 % (35.0-46.0) Mean Corpuscular Volume 92.8 FL (80.0-100.0) 91.3 FL (80.0-100.0) Mean Corpuscular Hemoglobin 31.1 PG (27.0-34.0) 30.8 PG (27.0-34.0) Mean Corpuscular Hemoglobin Concent 33.5 % (32.0-36.0) 33.7 % (32.0-36.0) Red Cell Distribution Width 12.4 % (11.6-17.2) 12.9 % (11.6-17.2) Platelet Count 223 TH/MM3 (150-450) 309 TH/MM3 (150-450) Mean Platelet Volume 9.1 FL (7.0-11.0) 8.6 FL (7.0-11.0) Neutrophils (%) (Auto) 65.0 % (16.0-70.0) 66.3 % (16.0-70.0) Lymphocytes (%) (Auto) 15.3 % (9.0-44.0) 13.2 % (9.0-44.0) Monocytes (%) (Auto) 14.2 % (0.0-8.0) 14.0 % (0.0-8.0) Eosinophils (%) (Auto) 4.8 % (0.0-4.0) 6.0 % (0.0-4.0) Basophils (%) (Auto) 0.7 % (0.0-2.0) 0.5 % (0.0-2.0) Neutrophils # (Auto) 5.6 TH/MM3 (1.8-7.7) 6.0 TH/MM3 (1.8-7.7) Lymphocytes # (Auto) 1.3 TH/MM3 (1.0-4.8) 1.2 TH/MM3 (1.0-4.8) Monocytes # (Auto) 1.2 TH/MM3 (0-0.9) 1.3 TH/MM3 (0-0.9) Eosinophils # (Auto) 0.4 TH/MM3 (0-0.4) 0.5 TH/MM3 (0-0.4) Basophils # (Auto) 0.1 TH/MM3 (0-0.2) 0.0 TH/MM3 (0-0.2) CBC Comment DIFF FINAL DIFF FINAL Differential Comment Blood Urea Nitrogen 12 MG/DL (7-18) 8 MG/DL (7-18) Creatinine 0.85 MG/DL (0.50-1.00) 0.66 MG/DL (0.50-1.00) Random Glucose 157 MG/DL (74-106) 107 MG/DL (74-106) Calcium Level 8.6 MG/DL (8.5-10.1) 8.7 MG/DL (8.5-10.1) Sodium Level 140 MEQ/L (136-145) 137 MEQ/L (136-145) Potassium Level 4.3 MEQ/L (3.5-5.1) 3.9 MEQ/L (3.5-5.1) Chloride Level 104 MEQ/L (98-107) 101 MEQ/L (98-107) Carbon Dioxide Level 31.0 MEQ/L (21.0-32.0) 28.0 MEQ/L (21.0-32.0) Anion Gap 5 MEQ/L (5-15) 8 MEQ/L (5-15) Estimat Glomerular Filtration Rate 65 ML/MIN (>89) 87 ML/MIN (>89) Lactic Acid Level 1.5 mmol/L (0.4-2.0) Magnesium Level 2.1 MG/DL (1.5-2.5) Total Creatine Kinase 300 U/L (26-192) Creatine Kinase MB 0.8 NG/ML (0.5-3.6) Creatine Kinase MB % 0.3 % (0.0-4.0) Total Protein 6.5 GM/DL (6.4-8.2) Albumin 2.6 GM/DL (3.4-5.0) Alkaline Phosphatase 60 U/L (45-117) Aspartate Amino Transf (AST/SGOT) 25 U/L (15-37) Alanine Aminotransferase (ALT/SGPT) 30 U/L (10-53) Total Bilirubin 0.5 MG/DL (0.2-1.0) Ammonia 11 MCMOL/L (11-32) Vitamin B12 Level 1119 PG/ML (193-986) Free Thyroxine 1.59 NG/DL (0.76-1.46) Thyroid Stimulating Hormone 3rd Gen 0.956 uIU/ML (0.358-3.740) Result Diagram: 05/02/17 0456 05/02/17 0456 Microbiology Microbiology Date/Time Source Procedure Growth Status 04/29/17 11:07 Blood Peripheral Aerobic Blood Culture - Preliminary NO GROWTH IN 2 DAYS Resulted 04/29/17 11:07 Blood Peripheral Anaerobic Blood Culture - Preliminary NO GROWTH IN 2 DAYS Resulted 04/29/17 11:00 Blood Peripheral Aerobic Blood Culture - Preliminary NO GROWTH IN 2 DAYS Resulted 04/29/17 11:00 Blood Peripheral Anaerobic Blood Culture - Preliminary NO GROWTH IN 2 DAYS Resulted Assessment and Plan Disease Oriented Problem List: (1) Encephalopathy (2) Dementia (3) UTI (urinary tract infection) (4) Status post right hip replacement Symptom Scale: (1) Confusion Comment: Multifactorial. Patient has a history of dementia. Came in with increased confusion compared to her baseline. Treated for UTI with Rocephin. (2) Constipation Comment: Patient has not had a bowel movement for the last 5 days. . (3) Debility Comment: Multifactorial. Progressive. Patient was recently admitted in the hospital after a mechanical fall and is status post right hip replacement. . Pertinent Non-Medical Issues Psychosocial: Patient was born and raised in [place]. Patient has been to her for 49 years. 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 Patient and her used to be snore periods and they finally moved to leave in [place] in 2008. Patient has 4 adult children 3 daughters ,1 son and 6 grandchildren. Spiritual: Legal: Patient has signed POA and healthcare proxy from [place] Ethical issues impacting care: No ethical issues impacting care at this time. . Important Contacts -Augustine Mason [phone] Daughter - HCS/Proxy- Annie Mason [phone] Daughter-alternate HCS/Proxy-Roxana Mason [phone] Daughter-Guerrero Isabella [phone] Son- Augustine Isabella [phone] . Prognosis Mrs Mason is a 77 years old female with a past medical history of dementia, and HTN. Patient was sent to ER on 04/26/17 from [facility] to be evaluated for altered mental status. Patient was noted by her daughter to be more confused than her baseline at the SNF. Patient was recently admitted in the hospital from 04/23/17-04/26/17fter mechanical fall. Patient underwent Right Hip Lee- Arthroplasty and was discharged to a SNF. Given ongoing comorbidities, patient remains at risk for further complications, deterioration and decline. . Code Status: No Code Plan PLAN: Legal decision maker: Patient has a history of dementia and is currently not able and most likely will not be able to make any medical decisions for herself. Patient has designated her daughter Annie Mason is her healthcare proxy([place])/surrogate and alternate healthcare proxy/ surrogate is her daughter Roxana Mason. Goals: Aggressive short of no code. [facility] DNR signed today by [facility]. Patient is now scheduled for a lumbar puncture and EEG. CODE STATUS: DNR/DNI SYMPTOMS: * Confusion:Multifactorial. Patient has a history of dementia and was recently hospitalized and is s/p hip replacement. Came in with increased confusion compared to her baseline. Treated for UTI with Rocephin. Patient is not as confused as she was yesterday. * Constipation:Patient has not had a bowel movement for the last 6 days. Patient on lactulose 30 mL's daily, magnesium hydroxide 30 mL's q 12 hrs prn, Dulcolax suppository 10 mg daily prn, Senokot 17.2 mg twice a day and prn. No PRN medications have been administered yet. Recommending using prn medications until patient has a bowel movement. * Debility:Multifactorial. Progressive. Patient was recently admitted in the hospital after a mechanical fall and is status post right hip replacement. Patient is a risk for deterioration and physical deconditioning if she is not able to participate in physical therapy due to increased confusion. PT following and plans to discharge patient to rehabilitation in place. Palliative care will continue to follow the patient during hospital course as condition evolves, to assist patient/decision-maker with understanding of their medical conditions, weighing benefits/burdens of treatment options, for clarification of goals of treatment. Additionally will assist with any symptoms of palliative concern Hodan Brown May 02, 2017 11:19
[2017-05-02 11:47] VITALS: BP 109/81; PULSE 76; RESP 18; TEMP 100.1; O2SAT 96
[2017-05-02 13:37] LABS: APTT (PATIENT) 26.3 SEC (24.3-30.1); PROTHROMBIN TIME - PATIENT 11.2 SEC (9.8-11.6)
--- NOTE | 2017-05-02 15:18 | HHI.PR ---
Subjective Remarks Follow-up encephalopathy. Remains encephalopathic now with myoclonus. 4 lumbar puncture tomorrow results to be delayed secondary to Xarelto. Seen with . Discussed with RN, still no BM we'll continue bowel regimen Objective Vitals Vital Signs Date Time Temp Pulse Resp B/P (MAP) Pulse Ox O2 Delivery O2 Flow Rate FiO2 05/02/17 11:47 100.1 76 18 109/81 (90) 96 05/02/17 08:10 95 21 05/02/17 07:54 98.4 72 16 121/66 (84) 96 Manual Cuff/Auscultation 05/02/17 00:10 99.6 78 19 136/72 (93) 95 05/01/17 23:02 94 21 05/01/17 21:39 98.7 95 19 153/103 (120) 94 05/01/17 19:29 120/80 (93) Automatic Cuff 05/01/17 18:56 98.8 104 24 198/81 (120) 96 05/01/17 16:10 98.5 105 24 168/76 (106) 95 Result Diagram: 05/02/17 0456 05/02/17 0456 Imaging Last Impressions Brain MRI 04/29/17 0000 Signed Impressions: Service Date/Time: Saturday, April 29, 2017 15:24 - CONCLUSION: 1. No acute intracranial abnormality is identified. There are no findings to indicate recent ischemia. 2. Chronic changes include generalized atrophy and periventricular and subcortical white matter signal changes characteristic of chronic microvascular ischemia. Monroe James MD Hip and Pelvis X-Ray 04/28/17 0000 Signed Impressions: Service Date/Time: Friday, April 28, 2017 05:18 - CONCLUSION: Post surgical changes as above. Kristopher Harman MD Head CT 04/26/17 0000 Signed Impressions: Service Date/Time: April 22:47 - CONCLUSION: 1. No evidence of acute intracranial pathology. No masses are identified. Kristopher Harman MD Chest X-Ray 04/26/17 0000 Signed Impressions: Service Date/Time: April 23:19 - CONCLUSION: 1. Cardiomegaly. No acute pulmonary disease. Kristopher Harman MD Objective Remarks GENERAL: Elderly white female in no acute distress HEENT: PERRLA, EOMI. No scleral icterus or conjunctival pallor. No lid lag or facial droop. Neck: Supple CARDIOVASCULAR: Regular rate and rhythm. No obvious murmurs to auscultation. No chest tenderness to palpation. RESPIRATORY: No obvious rhonchi or wheezing. Clear to auscultation. Breath sounds equal bilaterally. GASTROINTESTINAL: Abdomen soft, non-tender, nondistended. BS normal. MUSCULOSKELETAL: Extremities without clubbing, cyanosis, or edema. No obvious deformities. Right LE brace. Right hip wound with no signs of infection NEUROLOGICAL: Lethargic and confused. No focal neurologic deficits. Moving both upper and lower extremities spontaneously. Procedures None A/P Problem List: (1) Encephalopathy ICD Code: G93.40 - Encephalopathy, unspecified (2) UTI (urinary tract infection) ICD Code: N39.0 - Urinary tract infection, site not specified (3) Dementia ICD Code: F03.90 - Unspecified dementia without behavioral disturbance (4) Status post right hip replacement ICD Code: Z96.641 - Presence of right artificial hip joint Assessment and Plan 1. Encephalopathy: Likely multifactorial-underlying dementia w/ recent hospitalization/surgical intervention, sleep deprivation, constipation, meds and UTI. CT Head w/ no acute findings, as well as brain MRI. EEG and ammonia level unremarkable. She is worse for lumbar puncture tomorrow. Sleep hygiene. 2. UTI: Status post Rocephin 3. Dementia: Resume home Namenda 4. Right Hip Lee-Arthroplasty: Recent admit 04/23-04/26/17 w/ right hip fx after fall, s/p Right Hip Lee-Arthroplasty 04/23/17. Continue w/ PT. Avoid narcotics if possible 5. Hyperglycemia. A1c 5.7 6. Constipation. No BM for several days. Continue bowel. Discussed with RN to continue bowel regimen and give as needed medications 7. FEN. IV fluids if by mouth is less than 50% DVT Prophylaxis: Resume Xarelto after lumbar puncture Discharge Planning Not ready for discharge high likelihood of readmission. Palliative care following Reji Sherman MD May 02, 2017 15:18
[2017-05-02] MEDS: NS + KCL 20 MEQ INJ 1,000 ML IV PRN (15:31)
[2017-05-02 16:13] VITALS: BP 122/68; PULSE 80; RESP 16; TEMP 99.2; O2SAT 97
--- NOTE | 2017-05-02 19:03 | MG ---
cc: SOURAV ZABALA Lab No: Date: 05/02/2017 Age: Sex: F Race: TEST NUMBER [id number] Hyperventilation not performed. Generalized slowing in the past. Mental status. Myoclonus. Alzheimer's. MEDICATIONS 1. Diltiazem. 2. Namenda. DESCRIPTION A diffuse 5-6 Hz rhythm is noted. Some bifrontal delta slowing is seen. No epileptiform or seizure activity is noted. Some shoulder twitching was seen which did not correlate with any electroencephalographic seizures. Also some feet twitching. It looks like she falls asleep but does not quite reach stage II sleep. Photic stimulation was performed without significant posterior driving. She was noted to be snoring, a lot of snoring and feet and mouth twitching when noted but these do not correlate with any seizure activity. IMPRESSION Some diffuse slowing consistent with a moderate diffuse encephalopathy. All of the twitching that was noted did not correlate with any seizure activity. No focal abnormalities noted. No seizure activity was seen. MD REY Hanley/GARY /6:21 PM /6:56 PM
--- NOTE | 2017-05-02 19:16 | HHI.PR ---
Review/Management Diagnosis Dementia with exacerbation of mental status sx due to encephalopathy from UTI mental status is improved today. B12 level is not low, nh3 normal. T4 slightly high with normal TSH Plan Lumbar puncture to r/o it operations specialist infection. Will also be helpful in the dementia work up Diagnosis/Plan: Subjective Subjective Comments No acute events reported No headache has been more alert today Active Medications Current Medications Medications (Trade) Dose Ordered Sig/Jena Route Start Time Stop Time Status Last Admin (NS Flush) 2 ml UNSCH PRN IV FLUSH 04/27/17 00:00 (NS Flush) 2 ml BID IV FLUSH 04/27/17 09:00 05/02/17 09:00 (Zofran Inj) 4 mg Q6H PRN IVP 04/27/17 00:00 (Tylenol) 650 mg Q6H PRN PO 04/27/17 00:00 (Cathy-Colace) 1 tab BID PO 04/27/17 09:00 05/02/17 09:07 (Milk Of Magnesia Liq) 30 ml Q12H PRN PO 04/27/17 00:00 (Senokot) 17.2 mg Q12H PRN PO 04/27/17 00:00 (Dulcolax Supp) 10 mg DAILY PRN RECTAL 04/27/17 00:00 05/02/17 13:41 (Cardizem Cd) 120 mg DAILY PO 04/27/17 09:00 05/02/17 09:07 (Namenda) 5 mg BID PO 04/27/17 09:00 05/02/17 09:07 (Oscal-D 250-125) 500 mg BID PO 04/27/17 09:00 05/01/17 09:24 (Toradol Inj) 15 mg Q6H PRN IV PUSH 04/29/17 08:15 05/04/17 08:14 Potassium Chloride/Sodium Chloride 1,000 ml @ 70 mls/hr [id number] PRN IV 04/29/17 10:00 05/02/17 15:31 (Albuterol Neb) 0.63 mg QID NEB NEB 04/29/17 12:00 05/02/17 15:41 (Lactulose Liq) 30 ml DAILY PO 05/01/17 13:15 05/02/17 09:07 Allergies Allergies Coded Allergies Sulfa (Sulfonamide Antibiotics) (Unverified Allergy, Severe, 04/26/17) Exam I&O / VS Vital Signs Date Time Temp Pulse Resp B/P (MAP) Pulse Ox O2 Delivery O2 Flow Rate FiO2 05/02/17 16:13 99.2 80 16 122/68 (86) 97 05/02/17 11:47 100.1 76 18 109/81 (90) 96 05/02/17 08:10 95 21 05/02/17 07:54 98.4 72 16 121/66 (84) 96 Manual Cuff/Auscultation 05/02/17 00:10 99.6 78 19 136/72 (93) 95 05/01/17 23:02 94 21 05/01/17 21:39 98.7 95 19 153/103 (120) 94 05/01/17 19:29 120/80 (93) Automatic Cuff Exam Comments more alert today than yesterday. disoriented to date and place. follows simple commands CN perrl. no facial asymmetry motor--no myoclonus today. no focal abnormalities Objective Micro and Labs Laboratory Tests Test 05/02/17 04:56 05/02/17 13:05 White Blood Count 9.1 Red Blood Count 4.35 Hemoglobin 13.4 Hematocrit 39.7 Mean Corpuscular Volume 91.3 Mean Corpuscular Hemoglobin 30.8 Mean Corpuscular Hemoglobin Concent 33.7 Red Cell Distribution Width 12.9 Platelet Count 309 Mean Platelet Volume 8.6 Neutrophils (%) (Auto) 66.3 Lymphocytes (%) (Auto) 13.2 Monocytes (%) (Auto) 14.0 Eosinophils (%) (Auto) 6.0 Basophils (%) (Auto) 0.5 Neutrophils # (Auto) 6.0 Lymphocytes # (Auto) 1.2 Monocytes # (Auto) 1.3 Eosinophils # (Auto) 0.5 Basophils # (Auto) 0.0 CBC Comment DIFF FINAL Differential Comment Blood Urea Nitrogen 8 Creatinine 0.66 Random Glucose 107 Total Protein 6.5 Albumin 2.6 Calcium Level 8.7 Alkaline Phosphatase 60 Aspartate Amino Transf (AST/SGOT) 25 Alanine Aminotransferase (ALT/SGPT) 30 Total Bilirubin 0.5 Sodium Level 137 Potassium Level 3.9 Chloride Level 101 Carbon Dioxide Level 28.0 Anion Gap 8 Estimat Glomerular Filtration Rate 87 Ammonia 11 Vitamin B12 Level 1119 Free Thyroxine 1.59 Thyroid Stimulating Hormone 3rd Gen 0.956 Prothrombin Time 11.2 Prothromb Time International Ratio 1.0 Activated Partial Thromboplast Time 26.3 Date/Time Source Procedure Growth Status 04/29/17 11:07 Blood Peripheral Aerobic Blood Culture - Preliminary NO GROWTH IN 3 DAYS Resulted 04/29/17 11:07 Blood Peripheral Anaerobic Blood Culture - Preliminary NO GROWTH IN 3 DAYS Resulted Diagnostic Tests EEG--generalized slowing. No epileptiform discharges Moises Reese PhD May 02, 2017 19:16
[2017-05-02 20:41] VITALS: BP 116/65; PULSE 85; RESP 20; TEMP 100.7; O2SAT 95
[2017-05-03] MEDS: RESP: ALBUTEROL 0.63 MG/3 ML NEB (SCH) NEB (08:00)
[2017-05-03 08:30] VITALS: BP 107/74; PULSE 90; RESP 16; TEMP 98; O2SAT 95
[2017-05-03] MEDS: SODIUM CHLORIDE 0.9% FLUSH 10 ML FLUSH IV FLUSH SCH ×2 (09:00→20:22)
[2017-05-03] MEDS: DILTIAZEM-CD 120 MG CAP ER PO SCH ×2 (09:00→10:45)
[2017-05-03] MEDS: DOCUSATE SODIUM 50 MG/SENNA 8.6 MG TAB PO SCH ×2 (09:00→20:21)
[2017-05-03] MEDS: LACTULOSE SYRUP 20 GM/30 ML CUP PO SCH (09:00)
--- NOTE | 2017-05-03 09:26 | RADRPT ---
EXAM DATE/TIME: 05/03/2017 08:33 [facility] COMPARISON: CHEST SINGLE AP, April 26, 2017, 23:19. INDICATIONS : Cough. MEDICAL HISTORY : Dementia. Hypertension. Asthma. SURGICAL HISTORY : Right total hip replacement. ENCOUNTER: Subsequent ACUITY: 1 week PAIN SCORE: 0/10 LOCATION: Bilateral chest FINDINGS: A single view of the chest demonstrates the lungs to be symmetrically aerated without evidence of mas s, infiltrate or effusion. The cardiomediastinal contours are unremarkable. Osseous structures are intact. CONCLUSION: No acute disease. Alberto Figueroa Jr., MD on May 03, 2017 at 9:24 Board Certified Radiologist. This report was verified electronically.
[2017-05-03 09:46] LABS: ALPHA 1 GLOBULIN 0.3 GM/DL (0.11-0.29); ALPHA 2 GLOBULIN 1.12 GM/DL (0.22-1.00); BETA GLOBULINS (SPE) 0.9 GM/DL (0.53-1.03)
[2017-05-03 09:50] LABS: ALBUMIN SPE 3.26 GM/DL (3.50-5.00)
--- NOTE | 2017-05-03 10:02 | PD.RAD ---
Post Procedure Progress Note Pre Procedure Diagnosis: (1) Dementia (2) Altered mental status Post Procedure Diagnosis: (1) Dementia (2) Altered mental status Procedure Date: May 03, 2017 Supervising Radiologist: Hugh Elizalde Proceduralist/Assist: Presley Kiran, RT(R), Sandra Pearce RT(R) Anesthesia: Local Plan of Activity Patient to Unit: Other (ED) Patient Condition: Good See PACS Report for procedural detail/treatment Spinal Procedure Lumbar Puncture L3-L4 Fluid Removal (CCs): 17 Fluid Description: Clear Puncture Time: 09:46 Hugh Elizalde MD May 03, 2017 10:02
--- NOTE | 2017-05-03 10:26 | RADRPT ---
EXAM DATE/TIME: 05/03/2017 10:40 [facility] COMPARISON: No previous studies available for comparison. INDICATIONS : Patient with altered mental status in need of lumbar puncture. MEDICAL HISTORY : HTN, Diabetes, Dementia, Asthma SURGICAL HISTORY : Right hip peter-arthroplasty, ORIF radius and ulna ENCOUNTER: Initial ACUITY: 1 week PAIN SCORE: 0/10 LUMBAR PUNCTURE TIME: 0946 hours FLUORO TIME: 2.6 minutes IMAGE SERIES: 0 ACCESS LEVEL: L3-4 FLUID: 17 cc of clear CSF was collected and sent to the laboratory for analysis. PROCEDURE : 1. Fluoroscopic guided lumbar puncture. The risks, benefits and alternatives to the procedure were explained and verbal and written consent w as obtained. The site was prepped in sterile fashion. Full sterile technique was used, including ca p, mask, sterile gloves and gown and a large sterile sheet. Hand hygiene and 2% chlorhexidine and/or betadine/alcohol prep was utilized per protocol for cutaneous antisepsis. The skin and subcutaneous tissues were infiltrated with local anesthetic solution. With fluoroscopic guidance the lumbar thecal sac was punctured at the level above. The fluid describ ed above was removed without difficulty. The patient tolerated the procedure well and there were no complications. CONCLUSION: Uncomplicated fluoroscopically guided lumbar puncture. Hugh Elizalde MD on May 03, 2017 at 10:25 Board Certified Radiologist. This report was verified electronically.
[2017-05-03] MEDS: CALCIUM/VITAMIN D 250 MG/125 U TAB PO SCH ×2 (10:43→20:21)
[2017-05-03] MEDS: MEMANTINE HCL 5 MG TAB PO SCH ×2 (10:45→20:22)
--- NOTE | 2017-05-03 11:12 | HHI.HCPN ---
Reason for visit a. To assist with evaluation and management of symptoms including: Confusion , constipation, debility. b. To assist medical decision maker(s) with: better understanding of current medical conditions; weighing benefits/burdens of medical treatment options; making medical treatment decisions. Subjective/Interval History Patient seen in ED Room F68 after she had just arrived from where she had a lumbar puncture done. HOB flat. Patient lethargic and oriented to self and pleasantly confused. Patient`s daughter stated that she was not very confused last night. Denies pain. Patient has some myoclonic jerk movements to her upper extremities and lower extremities. Per daughter, patient had a smear of stool after Dulcolax suppository was administered yesterday. Patient is hemodynamically stable. . Family/friend interactions Daughter Advance Directives Living Will: Copy in medical record Health Care Surrogate: Copy in medical record Durable Power of Brick Setter: Copy in medical record Advance Directive Specifics Date completed: March 17, 2015 Health Care Surrogate(s): D[facility] - POA/ [facility] [phone] Daughter-alternate HCS/Proxy-[facility] [phone] Documented care wishes: Standard VERBIAGE. . Objective Vital Signs Date Time Temp Pulse Resp B/P (MAP) Pulse Ox O2 Delivery O2 Flow Rate FiO2 05/03/17 08:30 98.0 90 16 107/74 (85) 95 05/02/17 20:41 100.7 85 20 116/65 (82) 95 05/02/17 16:13 99.2 80 16 122/68 (86) 97 05/02/17 11:47 100.1 76 18 109/81 (90) 96 Physical Exam CONSTITUTIONAL/GENERAL: This is an adequately nourished patient, in no apparent distress. TUBES/LINES/DRAINS: PIV SKIN: No jaundice,lesions. Rash to hands. Ecchymoses on upper extremities. No wounds seen anteriorly. Skin temperature appropriate. Not diaphoretic. HEAD: Atraumatic. Normocephalic. EYES: Pupils equal and round and reactive. Extraocular motions intact. No scleral icterus. No injection or drainage. Fundi not examined. ENT:Nose without bleeding or purulent drainage. Moist oral mucosa. NECK: Trachea midline. Supple, nontender.. CARDIOVASCULAR: Regular rate and rhythm without murmurs, gallops, or rubs. No JVD. Peripheral pulses symmetric. RESPIRATORY/CHEST: Symmetric, unlabored respirations. Clear to auscultation. Breath sounds equal bilaterally. No wheezes, rales, or rhonchi. GASTROINTESTINAL: Abdomen soft, non-tender, nondistended. No hepato-splenomegaly , or palpable masses. No guarding. Bowel sounds present. GENITOURINARY: Without palpable bladder distension. Selby catheter in place. MUSCULOSKELETAL: Extremities without edema. No calf tenderness. No mottling or clubbing.Right LE brace. NEUROLOGICAL: Awake and oriented to person only. Confused, but was able to answer simple questions appropriately today.Patient having pronounced myoclonus movements with all 4 extremities. PSYCHIATRIC: No obvious anxiety/depression. no apparent hallucinations or other psychotic thought process. . Diagnostic Tests Laboratory Laboratory Tests Test 05/02/17 04:56 05/02/17 13:05 05/03/17 09:46 White Blood Count 9.1 TH/MM3 (4.0-11.0) Red Blood Count 4.35 MIL/MM3 (4.00-5.30) Hemoglobin 13.4 GM/DL (11.6-15.3) Hematocrit 39.7 % (35.0-46.0) Mean Corpuscular Volume 91.3 FL (80.0-100.0) Mean Corpuscular Hemoglobin 30.8 PG (27.0-34.0) Mean Corpuscular Hemoglobin Concent 33.7 % (32.0-36.0) Red Cell Distribution Width 12.9 % (11.6-17.2) Platelet Count 309 TH/MM3 (150-450) Mean Platelet Volume 8.6 FL (7.0-11.0) Neutrophils (%) (Auto) 66.3 % (16.0-70.0) Lymphocytes (%) (Auto) 13.2 % (9.0-44.0) Monocytes (%) (Auto) 14.0 % (0.0-8.0) Eosinophils (%) (Auto) 6.0 % (0.0-4.0) Basophils (%) (Auto) 0.5 % (0.0-2.0) Neutrophils # (Auto) 6.0 TH/MM3 (1.8-7.7) Lymphocytes # (Auto) 1.2 TH/MM3 (1.0-4.8) Monocytes # (Auto) 1.3 TH/MM3 (0-0.9) Eosinophils # (Auto) 0.5 TH/MM3 (0-0.4) Basophils # (Auto) 0.0 TH/MM3 (0-0.2) CBC Comment DIFF FINAL Differential Comment Blood Urea Nitrogen 8 MG/DL (7-18) Creatinine 0.66 MG/DL (0.50-1.00) Random Glucose 107 MG/DL (74-106) Total Protein 6.5 GM/DL (6.4-8.2) Albumin 2.6 GM/DL (3.4-5.0) Calcium Level 8.7 MG/DL (8.5-10.1) Alkaline Phosphatase 60 U/L (45-117) Aspartate Amino Transf (AST/SGOT) 25 U/L (15-37) Alanine Aminotransferase (ALT/SGPT) 30 U/L (10-53) Total Bilirubin 0.5 MG/DL (0.2-1.0) Sodium Level 137 MEQ/L (136-145) Potassium Level 3.9 MEQ/L (3.5-5.1) Chloride Level 101 MEQ/L (98-107) Carbon Dioxide Level 28.0 MEQ/L (21.0-32.0) Anion Gap 8 MEQ/L (5-15) Estimat Glomerular Filtration Rate 87 ML/MIN (>89) Ammonia 11 MCMOL/L (11-32) Albumin/Globulin Ratio 1.00 (1.39-2.23) Nfblj-9-Wzypvvvst 0.30 GM/DL (0.11-0.29) Chcnc-5-Kokhafdja 1.12 GM/DL (0.22-1.00) Beta Globulins 0.90 GM/DL (0.53-1.03) Gamma Globulins 0.93 GM/DL (0.50-1.39) Vitamin B12 Level 1119 PG/ML (193-986) Free Thyroxine 1.59 NG/DL (0.76-1.46) Thyroid Stimulating Hormone 3rd Gen 0.956 uIU/ML (0.358-3.740) Prothrombin Time 11.2 SEC (9.8-11.6) Prothromb Time International Ratio 1.0 RATIO Activated Partial Thromboplast Time 26.3 SEC (24.3-30.1) Result Diagram: 05/02/17 0456 05/02/17 0456 Microbiology Microbiology Date/Time Source Procedure Growth Status 05/03/17 09:46 Cerebral Spinal Fluid Lumbar Puncture Fungal Smear Pending Received 05/03/17 09:46 Cerebral Spinal Fluid Lumbar Puncture Fungal Culture Pending Received 05/03/17 09:46 Cerebral Spinal Fluid Lumbar Puncture Acid Fast Stain Pending Received 05/03/17 09:46 Cerebral Spinal Fluid Lumbar Puncture Mycobacterial Culture Pending Received 05/03/17 09:46 Cerebral Spinal Fluid Lumbar Puncture Gram Stain Pending Received 05/03/17 09:46 Cerebral Spinal Fluid Lumbar Puncture CSF Culture Pending Received Assessment and Plan Disease Oriented Problem List: (1) Encephalopathy (2) Dementia (3) UTI (urinary tract infection) (4) Status post right hip replacement Symptom Scale: (1) Confusion Comment: Multifactorial. Patient has a history of dementia. Came in with increased confusion compared to her baseline. Treated for UTI with Rocephin. (2) Constipation Comment: Patient had a smear last night. . (3) Debility Comment: Multifactorial. Progressive. Patient was recently admitted in the hospital after a mechanical fall and is status post right hip replacement. . Pertinent Non-Medical Issues Psychosocial: Patient was born and raised in [place]. Patient has been to her for 49 years. 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 Patient and her used to be snore periods and they finally moved to leave in [place] in 2008. Patient has 4 adult children 3 daughters ,1 son and 6 grandchildren. Spiritual: Legal: Patient has signed POA and healthcare proxy from [place] Ethical issues impacting care: No ethical issues impacting care at this time. . Important Contacts -Augustine Mason [phone] Daughter - HCS/Proxy- Annie Mason [phone] Daughter-alternate HCS/Proxy-Roxana Aria Mason [phone] Daughter-Guerrero Mason [phone] Son- Augustine Mason [phone] . Prognosis Mrs Mason is a 77 years old female with a past medical history of dementia, and HTN. Patient was sent to ER on 04/26/17 from [facility] to be evaluated for altered mental status. Patient was noted by her daughter to be more confused than her baseline at the SNF. Patient was recently admitted in the hospital from 04/23/17-04/26/17fter mechanical fall. Patient underwent Right Hip Lee- Arthroplasty and was discharged to a SNF. Given ongoing comorbidities, patient remains at risk for further complications, deterioration and decline. . Code Status: No Code Plan PLAN: Legal decision maker: Patient has a history of dementia and is currently not able and most likely will not be able to make any medical decisions for herself. Patient has designated her daughter Annie Mason is her healthcare proxy([place])/surrogate and alternate healthcare proxy/ surrogate is her daughter Roxana Mason. Goals: Aggressive short of no code. [facility] DNR signed today by [facility]. Patient is now scheduled for a lumbar puncture and EEG. CODE STATUS: DNR/DNI SYMPTOMS: * Confusion:Multifactorial. Patient has a history of dementia and was recently hospitalized and is s/p hip replacement. Came in with increased confusion compared to her baseline. Treated for UTI with Rocephin. Patient is not as confused as she was yesterday. * Constipation:Patient has not had a bowel movement for more than 72 hrs. Patient on lactulose 30 mL's daily, magnesium hydroxide 30 mL's q 12 hrs prn, Dulcolax suppository 10 mg daily prn, Senokot 17.2 mg twice a day and prn. No PRN medications have been administered yet. Recommending using prn medications until patient has a bowel movement. * Debility:Multifactorial. Progressive. Patient was recently admitted in the hospital after a mechanical fall and is status post right hip replacement. Patient is a risk for deterioration and physical deconditioning if she is not able to participate in physical therapy due to increased confusion. PT following and plans to discharge patient to rehabilitation in place. Palliative care will continue to follow the patient during hospital course as condition evolves, to assist patient/decision-maker with understanding of their medical conditions, weighing benefits/burdens of treatment options, for clarification of goals of treatment. Additionally will assist with any symptoms of palliative concern Hodan Brown May 03, 2017 11:12
[2017-05-03 12:00] VITALS: BP 137/68; PULSE 98; RESP 16; TEMP 97.5; O2SAT 96
[2017-05-03 12:02] LABS: GROSS BLOOD TUBE #1 0 (0); GROSS BLOOD TUBE #2 0 (0); GROSS BLOOD TUBE #3 0 (0); GROSS BLOOD TUBE #4 0 (0); SUPERNATE COLOR TUBE #1 CLEAR (CLEAR); SUPERNATE COLOR TUBE #2 CLEAR (CLEAR); SUPERNATE COLOR TUBE #3 CLEAR (CLEAR); SUPERNATE COLOR TUBE #4 CLEAR (CLEAR); VOLUME TUBE # 1 2.5 ML; VOLUME TUBE # 3 2.5 ML
[2017-05-03 12:03] LABS: CSF LYMPHOCYTES 0 %; CSF NEUTROPHILS 0 %; WBC TUBE #4 0 /MM3 (0-10)
--- NOTE | 2017-05-03 13:18 | HHI.PR ---
Subjective Remarks Follow-up encephalopathy. She is more awake but remains confused. Myoclonus not evident today. Seen with daughter who complains patient has been coughing. Discussed with RN MAXIMUM TEMPERATURE 100.7 Objective Vitals Vital Signs Date Time Temp Pulse Resp B/P (MAP) Pulse Ox O2 Delivery O2 Flow Rate FiO2 05/03/17 08:30 98.0 90 16 107/74 (85) 95 05/02/17 20:41 100.7 85 20 116/65 (82) 95 05/02/17 16:13 99.2 80 16 122/68 (86) 97 Result Diagram: 05/02/17 0456 05/02/17 0456 Imaging Last Impressions Lumbar Puncture Fluoroscopy 05/03/17 0000 Signed Impressions: Service Date/Time: April 10:40 - CONCLUSION: Uncomplicated fluoroscopically guided lumbar puncture. Hugh Elizalde MD Chest X-Ray 05/03/17 0000 Signed Impressions: Service Date/Time: April 08:33 - CONCLUSION: No acute disease. Alberto Figueroa Jr., MD Brain MRI 04/29/17 0000 Signed Impressions: Service Date/Time: Saturday, April 29, 2017 15:24 - CONCLUSION: 1. No acute intracranial abnormality is identified. There are no findings to indicate recent ischemia. 2. Chronic changes include generalized atrophy and periventricular and subcortical white matter signal changes characteristic of chronic microvascular ischemia. Monroe James MD Hip and Pelvis X-Ray 04/28/17 0000 Signed Impressions: Service Date/Time: Friday, April 28, 2017 05:18 - CONCLUSION: Post surgical changes as above. Kristopher Harman MD Head CT 04/26/17 0000 Signed Impressions: Service Date/Time: April 22:47 - CONCLUSION: 1. No evidence of acute intracranial pathology. No masses are identified. Kristopher Harman MD Objective Remarks GENERAL: Elderly white female in no acute distress HEENT: PERRLA, EOMI. No scleral icterus or conjunctival pallor. No lid lag or facial droop. Neck: Supple CARDIOVASCULAR: Regular rate and rhythm. No obvious murmurs to auscultation. No chest tenderness to palpation. RESPIRATORY: No obvious rhonchi or wheezing. Clear to auscultation. Breath sounds equal bilaterally. GASTROINTESTINAL: Abdomen soft, non-tender, nondistended. BS normal. MUSCULOSKELETAL: Extremities without clubbing, cyanosis, or edema. No obvious deformities. Right LE brace. Right hip wound with no signs of infection NEUROLOGICAL: Awake and confused. No focal neurologic deficits. Moving both upper and lower extremities spontaneously. Procedures Lumbar puncture A/P Problem List: (1) Encephalopathy ICD Code: G93.40 - Encephalopathy, unspecified (2) UTI (urinary tract infection) ICD Code: N39.0 - Urinary tract infection, site not specified (3) Dementia ICD Code: F03.90 - Unspecified dementia without behavioral disturbance (4) Status post right hip replacement ICD Code: Z96.641 - Presence of right artificial hip joint Assessment and Plan 1. Encephalopathy: Likely multifactorial-underlying dementia w/ recent hospitalization/surgical intervention, sleep deprivation, constipation, meds and UTI. CT Head w/ no acute findings, as well as brain MRI. EEG and ammonia level unremarkable. She is worse with low-grade fever. Repeat chest x-ray negative. Status post lumbar puncture follow-up CSF studies. F 2. UTI: Status post Rocephin 3. Dementia: Resume home Namenda 4. Right Hip Lee-Arthroplasty: Recent admit 04/23-04/26/17 w/ right hip fx after fall, s/p Right Hip Lee-Arthroplasty 04/23/17. Continue w/ PT. Avoid narcotics if possible 5. Hyperglycemia. A1c 5.7 6. Constipation. She had a bowel movement yesterday. Discussed with RN to continue bowel regimen and give as needed medications 7. FEN. IV fluids if by mouth is less than 50% DVT Prophylaxis: Resume Xarelto after lumbar puncture Discharge Planning Not ready for discharge high likelihood of readmission. Palliative care following Reji Sherman MD May 03, 2017 13:18
[2017-05-03 17:37] VITALS: BP 127/79; PULSE 82; RESP 18; TEMP 97.6; O2SAT 97
--- NOTE | 2017-05-03 19:08 | HHI.PR ---
Review/Management Diagnosis Dementia with exacerbation of mental status sx due to encephalopathy from UTI mental status is improved today. CSF is normal so far Diagnosis/Plan: Subjective Subjective Comments No acute events reported Has been more alert today Active Medications Current Medications Medications (Trade) Dose Ordered Sig/Jena Route Start Time Stop Time Status Last Admin (NS Flush) 2 ml UNSCH PRN IV FLUSH 04/27/17 00:00 (NS Flush) 2 ml BID IV FLUSH 04/27/17 09:00 05/02/17 09:00 (Zofran Inj) 4 mg Q6H PRN IVP 04/27/17 00:00 (Tylenol) 650 mg Q6H PRN PO 04/27/17 00:00 (Cathy-Colace) 1 tab BID PO 04/27/17 09:00 05/03/17 09:00 (Milk Of Magnesia Liq) 30 ml Q12H PRN PO 04/27/17 00:00 (Senokot) 17.2 mg Q12H PRN PO 04/27/17 00:00 (Dulcolax Supp) 10 mg DAILY PRN RECTAL 04/27/17 00:00 05/02/17 13:41 (Cardizem Cd) 120 mg DAILY PO 04/27/17 09:00 05/02/17 09:07 (Namenda) 5 mg BID PO 04/27/17 09:00 05/03/17 10:45 (Oscal-D 250-125) 500 mg BID PO 04/27/17 09:00 05/03/17 10:43 (Toradol Inj) 15 mg Q6H PRN IV PUSH 04/29/17 08:15 05/04/17 08:14 Potassium Chloride/Sodium Chloride 1,000 ml @ 70 mls/hr [id number] PRN IV 04/29/17 10:00 05/02/17 15:31 (Lactulose Liq) 30 ml DAILY PO 05/01/17 13:15 05/02/17 09:07 Allergies Allergies Coded Allergies Sulfa (Sulfonamide Antibiotics) (Unverified Allergy, Severe, 04/26/17) Exam I&O / VS 05/03/17 05/03/17 05/04/17 15:00 23:00 07:00 Intake Total 210 ml Balance 210 ml Intake IV Total 210 ml Vital Signs Date Time Temp Pulse Resp B/P (MAP) Pulse Ox O2 Delivery O2 Flow Rate FiO2 05/03/17 17:37 97.6 82 18 127/79 (95) 97 05/03/17 12:00 97.5 98 16 137/68 (91) 96 05/03/17 08:30 98.0 90 16 107/74 (85) 95 05/02/17 20:41 100.7 85 20 116/65 (82) 95 Exam Comments more alert today than yesterday. disoriented to date and place. follows simple commands CN perrl. no facial asymmetry motor--no myoclonus today. no focal abnormalities Objective Micro and Labs Laboratory Tests Test 05/03/17 09:46 CSF Volume (Tube 1) 2.5 CSF Supernatant Color (tube 1) CLEAR CSF Gross Blood (Tube 1) 0 CSF Volume (Tube 2) 2.0 CSF Supernatant Color (tube 2) CLEAR CSF Gross Blood (Tube 2) 0 CSF Volume (Tube 3) 2.5 CSF Supernatant Color (tube 3) CLEAR CSF Gross Blood (Tube 3) 0 CSF Volume (Tube 4) 9.0 CSF Supernatant Color (tube 4) CLEAR CSF Gross Blood (Tube 4) 0 CSF WBC (Tube 4) 0 CSF RBC (Tube 4) 0 CSF Neutrophils 0 CSF Lymphocytes 0 CSF Glucose 61 CSF Total Protein 29.4 Date/Time Source Procedure Growth Status 04/29/17 11:07 Blood Peripheral Aerobic Blood Culture - Preliminary NO GROWTH IN 4 DAYS Resulted 04/29/17 11:07 Blood Peripheral Anaerobic Blood Culture - Preliminary NO GROWTH IN 4 DAYS Resulted 05/03/17 09:46 Cerebral Spinal Fluid Lumbar Puncture Fungal Smear Pending Received 05/03/17 09:46 Cerebral Spinal Fluid Lumbar Puncture Fungal Culture Pending Received Moises Reese PhD May 03, 2017 19:08
[2017-05-03] MEDS: NS + KCL 20 MEQ INJ 1,000 ML IV PRN (20:33)
[2017-05-03 21:24] VITALS: BP 136/76; PULSE 101; RESP 18; TEMP 98.6; O2SAT 97
[2017-05-04 01:20] VITALS: BP 141/67; PULSE 99; RESP 18; TEMP 98; O2SAT 96
[2017-05-04 06:08] VITALS: BP 152/72; PULSE 93; RESP 18; TEMP 97.7; O2SAT 97
[2017-05-04] MEDS: LACTULOSE SYRUP 20 GM/30 ML CUP PO SCH (07:29)
[2017-05-04 08:00] VITALS: BP 134/61; PULSE 87; RESP 19; TEMP 97.3; O2SAT 96
[2017-05-04 09:19] LABS: HSV 1,PCR Negative (Negative)
[2017-05-04] MEDS: MEMANTINE HCL 5 MG TAB PO SCH (09:33)
[2017-05-04] MEDS: DILTIAZEM-CD 120 MG CAP ER PO SCH (09:33)
[2017-05-04] MEDS: SODIUM CHLORIDE 0.9% FLUSH 10 ML FLUSH IV FLUSH SCH (09:33)
[2017-05-04] MEDS: DOCUSATE SODIUM 50 MG/SENNA 8.6 MG TAB PO SCH (09:33)
[2017-05-04] MEDS: CALCIUM/VITAMIN D 250 MG/125 U TAB PO SCH (09:33)
[2017-05-04] MEDS: NS + KCL 20 MEQ INJ 1,000 ML IV PRN (11:34)
--- NOTE | 2017-05-04 11:58 | HHI.HCPN ---
Reason for visit a. To assist with evaluation and management of symptoms including: Confusion , constipation, debility. b. To assist medical decision maker(s) with: better understanding of current medical conditions; weighing benefits/burdens of medical treatment options; making medical treatment decisions. Subjective/Interval History Patient seen in room 1511, with her daughter and are at bedside. Patient sleepy today but easily arousable. Patient oriented to self and confused to place time and situation. Occasionally answers simple questions appropriately and sometimes her statements are out of context. Patient denies pain and does not seem to be in any distress. Patient`s daughter reported that patient had a small BM yesterday. Patient is afebrile. SBP 130s-150s. O2 saturation mid to high 90s on room air. CSF culture from LP preliminary results showing no growth in 24 hrs. No recent laboratory work up and imaging. ST following patient, recommended mechanical dental soft and thin liquids. Patient`s daughter reporting that patient`s appetite is improving and has eaten more for breakfast today and is no longer coughing much during feedings. Daughter was provided with a list for long-term care facilities as per her request. Readdressed hospice and patient`s daughter want to give patient another chance of rehabilitation but has an understanding that patient may continue to decline and will benefit from enrolling in hospice. Patient`s daughter stated that it is definitely something she will consider if patient continues to decline and /or is not able to participate in rehabilitation. Offered hospice informative visit and family is not ready for hospice now. . Family/friend interactions Patient`s daughter Annie Aria Mason ([facility]) and spouse. . Advance Directives Living Will: Copy in medical record Health Care Surrogate: Copy in medical record Durable Power of Senior Technical Recruiter: Copy in medical record Advance Directive Specifics Date completed: March 17, 2015 Health Care Surrogate(s): Daughter - POA/ HCS/Proxy- Annie Mason [phone] Daughter-alternate HCS/Proxy-Roxana Mason [phone] Documented care wishes: Standard VERBIAGE. . Objective Vital Signs Date Time Temp Pulse Resp B/P (MAP) Pulse Ox O2 Delivery O2 Flow Rate FiO2 05/04/17 08:00 97.3 87 19 134/61 (85) 96 05/04/17 06:08 97.7 93 18 152/72 (98) 97 11/17/17 01:20 98.0 99 18 141/67 (91) 96 05/03/17 21:24 98.6 101 18 136/76 (96) 97 05/03/17 17:37 97.6 82 18 127/79 (95) 97 05/03/17 12:00 97.5 98 16 137/68 (91) 96 Physical Exam CONSTITUTIONAL/GENERAL: This is an adequately nourished patient, in no apparent distress-sleepy but easily arousable. TUBES/LINES/DRAINS: PIV SKIN: No jaundice,lesions. Rash to hands. Ecchymoses on upper extremities. No wounds seen anteriorly. Skin temperature appropriate. Not diaphoretic. HEAD: Atraumatic. Normocephalic. EYES: Pupils equal and round and reactive. Extraocular motions intact. No scleral icterus. No injection or drainage. Fundi not examined. ENT:Nose without bleeding or purulent drainage. Moist oral mucosa. NECK: Trachea midline. Supple, nontender.. CARDIOVASCULAR: Regular rate and rhythm without murmurs, gallops, or rubs. No JVD. Peripheral pulses symmetric. RESPIRATORY/CHEST: Symmetric, unlabored respirations. Clear to auscultation. Breath sounds equal bilaterally. No wheezes, rales, or rhonchi. GASTROINTESTINAL: Abdomen soft, non-tender, nondistended. No hepato-splenomegaly , or palpable masses. No guarding. Bowel sounds present. GENITOURINARY: Without palpable bladder distension. Selby catheter in place. MUSCULOSKELETAL: Extremities without edema. No calf tenderness. No mottling or clubbing.Right LE brace. NEUROLOGICAL: Awake and oriented to person only. Confused, able to answer a few simple questions appropriately. Sporadic myoclonus movements. PSYCHIATRIC: No obvious anxiety/depression. no apparent hallucinations or other psychotic thought process. . Diagnostic Tests Laboratory Laboratory Tests Test 05/02/17 04:56 05/02/17 13:05 05/03/17 09:46 White Blood Count 9.1 TH/MM3 (4.0-11.0) Red Blood Count 4.35 MIL/MM3 (4.00-5.30) Hemoglobin 13.4 GM/DL (11.6-15.3) Hematocrit 39.7 % (35.0-46.0) Mean Corpuscular Volume 91.3 FL (80.0-100.0) Mean Corpuscular Hemoglobin 30.8 PG (27.0-34.0) Mean Corpuscular Hemoglobin Concent 33.7 % (32.0-36.0) Red Cell Distribution Width 12.9 % (11.6-17.2) Platelet Count 309 TH/MM3 (150-450) Mean Platelet Volume 8.6 FL (7.0-11.0) Neutrophils (%) (Auto) 66.3 % (16.0-70.0) Lymphocytes (%) (Auto) 13.2 % (9.0-44.0) Monocytes (%) (Auto) 14.0 % (0.0-8.0) Eosinophils (%) (Auto) 6.0 % (0.0-4.0) Basophils (%) (Auto) 0.5 % (0.0-2.0) Neutrophils # (Auto) 6.0 TH/MM3 (1.8-7.7) Lymphocytes # (Auto) 1.2 TH/MM3 (1.0-4.8) Monocytes # (Auto) 1.3 TH/MM3 (0-0.9) Eosinophils # (Auto) 0.5 TH/MM3 (0-0.4) Basophils # (Auto) 0.0 TH/MM3 (0-0.2) CBC Comment DIFF FINAL Differential Comment Blood Urea Nitrogen 8 MG/DL (7-18) Creatinine 0.66 MG/DL (0.50-1.00) Random Glucose 107 MG/DL (74-106) Total Protein 6.5 GM/DL (6.4-8.2) Albumin 2.6 GM/DL (3.4-5.0) Calcium Level 8.7 MG/DL (8.5-10.1) Alkaline Phosphatase 60 U/L (45-117) Aspartate Amino Transf (AST/SGOT) 25 U/L (15-37) Alanine Aminotransferase (ALT/SGPT) 30 U/L (10-53) Total Bilirubin 0.5 MG/DL (0.2-1.0) Sodium Level 137 MEQ/L (136-145) Potassium Level 3.9 MEQ/L (3.5-5.1) Chloride Level 101 MEQ/L (98-107) Carbon Dioxide Level 28.0 MEQ/L (21.0-32.0) Anion Gap 8 MEQ/L (5-15) Estimat Glomerular Filtration Rate 87 ML/MIN (>89) Ammonia 11 MCMOL/L (11-32) Albumin/Globulin Ratio 1.00 (1.39-2.23) Bocqu-1-Nlugmqdrr 0.30 GM/DL (0.11-0.29) Cpvma-6-Xgeljzbso 1.12 GM/DL (0.22-1.00) Beta Globulins 0.90 GM/DL (0.53-1.03) Gamma Globulins 0.93 GM/DL (0.50-1.39) Electrophoresis Pathologist Comment Vitamin B12 Level 1119 PG/ML (193-986) Free Thyroxine 1.59 NG/DL (0.76-1.46) Thyroid Stimulating Hormone 3rd Gen 0.956 uIU/ML (0.358-3.740) Prothrombin Time 11.2 SEC (9.8-11.6) Prothromb Time International Ratio 1.0 RATIO Activated Partial Thromboplast Time 26.3 SEC (24.3-30.1) CSF Volume (Tube 1) 2.5 ML CSF Supernatant Color (tube 1) CLEAR (CLEAR) CSF Gross Blood (Tube 1) 0 (0) CSF Volume (Tube 2) 2.0 ML CSF Supernatant Color (tube 2) CLEAR (CLEAR) CSF Gross Blood (Tube 2) 0 (0) CSF Volume (Tube 3) 2.5 ML CSF Supernatant Color (tube 3) CLEAR (CLEAR) CSF Gross Blood (Tube 3) 0 (0) CSF Volume (Tube 4) 9.0 ML CSF Supernatant Color (tube 4) CLEAR (CLEAR) CSF Gross Blood (Tube 4) 0 (0) CSF WBC (Tube 4) 0 /MM3 (0-10) CSF RBC (Tube 4) 0 /MM3 (NONE) CSF Neutrophils 0 % CSF Lymphocytes 0 % CSF Glucose 61 MG/DL (40-80) CSF Total Protein 29.4 MG/DL (15.0-45.0) Herpes Simplex Virus I DNA (PCR) Negative (Negative) Herpes Simplex Virus II DNA (PCR) Negative (Negative) Result Diagram: 05/02/17 0456 05/02/17 0456 Microbiology Microbiology Date/Time Source Procedure Growth Status 05/03/17 09:46 Cerebral Spinal Fluid Lumbar Puncture Fungal Smear - Final NO FUNGAL ELEMENTS SEEN. Resulted 05/03/17 09:46 Cerebral Spinal Fluid Lumbar Puncture Fungal Culture Pending Resulted 05/03/17 09:46 Cerebral Spinal Fluid Lumbar Puncture Acid Fast Stain Pending Received 05/03/17 09:46 Cerebral Spinal Fluid Lumbar Puncture Mycobacterial Culture Pending Received 05/03/17 09:46 Cerebral Spinal Fluid Lumbar Puncture Gram Stain - Final Resulted 05/03/17 09:46 Cerebral Spinal Fluid Lumbar Puncture CSF Culture - Preliminary NO GROWTH IN 24 HOURS. Resulted Procedures 05/02/17 Lumbar puncture . Assessment and Plan Disease Oriented Problem List: (1) Encephalopathy (2) Dementia (3) UTI (urinary tract infection) (4) Status post right hip replacement Symptom Scale: (1) Confusion Comment: Multifactorial. Patient has a history of dementia. Came in with increased confusion compared to her baseline. Treated for UTI with Rocephin. . (2) Constipation Comment: Patient had a smear last night. . (3) Debility Comment: Multifactorial. Progressive. Patient was recently admitted in the hospital after a mechanical fall and is status post right hip replacement. . Pertinent Non-Medical Issues Psychosocial: Patient was born and raised in [place]. Patient has been to her for 49 years. 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 Patient and her used to be snore periods and they finally moved to leave in [place] in 2008. Patient has 4 adult children 3 daughters ,1 son and 6 grandchildren. Spiritual: Legal: Patient has signed POA and healthcare proxy from [place] Ethical issues impacting care: No ethical issues impacting care at this time. . Important Contacts -Augustine Mason [phone] Daughter - HCS/Proxy- Anniebaron Mason [phone] Daughter-alternate HCS/Proxy-Roxanacory Chestersvetlana [phone] Daughter-Guerrero Mason [phone] Son- Augustine Mason [phone] . Prognosis Mrs Mason is a 77 years old female with a past medical history of dementia, and HTN. Patient was sent to [place] on 04[place]26[place] [facility] [place] for altered mental status. Patient was noted by her daughter to be more confused than her baseline at the SNF. Patient was recently admitted in the hospital from 04/23/17-04/26/17fter mechanical fall. Patient underwent Right Hip Lee- Arthroplasty and was discharged to a SNF. Given ongoing comorbidities, patient remains at risk for further complications, deterioration and decline. . Code Status: No Code Plan PLAN: Legal decision maker: Patient has a history of dementia and is currently not able and most likely will not be able to make any medical decisions for herself. Patient has designated her daughter Annie Mason is her healthcare proxy([place])/surrogate and alternate healthcare proxy/ surrogate is her daughter Roxana Mason. Goals: 05/04/17 Aggressive short of no code. Readdressed hospice and patient`s daughter want to give patient another chance of rehabilitation but has an understanding that patient may continue to decline and will benefit from enrolling in hospice. Patient`s daughter stated that it is definitely something she will consider if patient continues to decline and / or is not able to participate in rehabilitation. Offered hospice informative visit and family is not ready for hospice now. CODE STATUS: DNR/DNI SYMPTOMS: * Confusion:Multifactorial. Patient has a history of dementia and was recently hospitalized and is s/p hip replacement. Came in with increased confusion compared to her baseline. Treated for UTI with Rocephin. Patient remains confused, alert to self with some confusion. * Constipation: Patient on lactulose 30 mL's daily, magnesium hydroxide 30 mL's q 12 hrs prn, Dulcolax suppository 10 mg daily prn, Senokot 17.2 mg twice a day and prn. No PRN medications have been administered yet. Patient`s daughter reported that patient had a small BM 05/03/17. Recommending continued use of prn medication. * Debility:Multifactorial. Progressive. Patient was recently admitted in the hospital after a mechanical fall and is status post right hip replacement. Patient is a risk for deterioration and physical deconditioning if she is not able to participate in physical therapy due to increased confusion. PT following and plans to discharge patient to rehabilitation in place. Palliative care will continue to follow the patient during hospital course as condition evolves, to assist patient/decision-maker with understanding of their medical conditions, weighing benefits/burdens of treatment options, for clarification of goals of treatment. Additionally will assist with any symptoms of palliative concern Hodan Brown May 04, 2017 11:58
[2017-05-04 12:00] VITALS: BP 109/75; PULSE 89; RESP 19; TEMP 98.3; O2SAT 96
--- NOTE | 2017-05-04 13:22 | HHI.PR ---
Subjective Remarks In bed, appears in nad. Denies chest pain or sob. Pleasantly confused. No fever or chills. Not eating much per family. Objective Vitals Vital Signs Date Time Temp Pulse Resp B/P (MAP) Pulse Ox O2 Delivery O2 Flow Rate FiO2 05/04/17 08:00 97.3 87 19 134/61 (85) 96 05/04/17 06:08 97.7 93 18 152/72 (98) 97 05/04/17 01:20 98.0 99 18 141/67 (91) 96 05/03/17 21:24 98.6 101 18 136/76 (96) 97 05/03/17 17:37 97.6 82 18 127/79 (95) 97 I/O 05/03/17 05/03/17 05/03/17 05/04/17 05/04/17 05/04/17 07:00 15:00 23:00 07:00 15:00 23:00 Intake Total 210 ml Balance 210 ml Intake IV Total 210 ml Result Diagram: 05/02/17 0456 05/02/17 0456 Imaging Last Impressions Lumbar Puncture Fluoroscopy 05/03/17 0000 Signed Impressions: Service Date/Time: April 10:40 - CONCLUSION: Uncomplicated fluoroscopically guided lumbar puncture. Hugh Elizalde MD Chest X-Ray 05/03/17 0000 Signed Impressions: Service Date/Time: April 08:33 - CONCLUSION: No acute disease. Alberto Figueroa Jr., MD Brain MRI 04/29/17 0000 Signed Impressions: Service Date/Time: Saturday, April 29, 2017 15:24 - CONCLUSION: 1. No acute intracranial abnormality is identified. There are no findings to indicate recent ischemia. 2. Chronic changes include generalized atrophy and periventricular and subcortical white matter signal changes characteristic of chronic microvascular ischemia. Monroe James MD Hip and Pelvis X-Ray 04/28/17 0000 Signed Impressions: Service Date/Time: Friday, April 28, 2017 05:18 - CONCLUSION: Post surgical changes as above. Kristopher Harman MD Head CT 04/26/17 0000 Signed Impressions: Service Date/Time: April 22:47 - CONCLUSION: 1. No evidence of acute intracranial pathology. No masses are identified. Kristopher Harman MD Objective Remarks GENERAL: Elderly white female in no acute distress CARDIOVASCULAR: Regular rate and rhythm. No obvious murmurs to auscultation. No chest tenderness to palpation. RESPIRATORY: No obvious rhonchi or wheezing. Clear to auscultation. Breath sounds equal bilaterally. GASTROINTESTINAL: Abdomen soft, non-tender, nondistended. BS normal. MUSCULOSKELETAL: Extremities without clubbing, cyanosis, or edema. No obvious deformities. Right LE brace. Right hip wound with no signs of infection NEUROLOGICAL: Awake and confused. No focal neurologic deficits. Moving both upper and lower extremities spontaneously. Procedures Lumbar puncture A/P Problem List: (1) Encephalopathy ICD Code: G93.40 - Encephalopathy, unspecified (2) UTI (urinary tract infection) ICD Code: N39.0 - Urinary tract infection, site not specified (3) Dementia ICD Code: F03.90 - Unspecified dementia without behavioral disturbance (4) Status post right hip replacement ICD Code: Z96.641 - Presence of right artificial hip joint Assessment and Plan Encephalopathy: Likely multifactorial-underlying dementia w/ recent hospitalization/surgical intervention, sleep deprivation, constipation, meds and UTI. CT Head w/ no acute findings, as well as brain MRI. EEG and ammonia level unremarkable. She is worse with low-grade fever. Repeat chest x-ray negative. Status post lumbar puncture follow-up CSF studies. F UTI: Status post Rocephin Dementia: Resume home Namenda Right Hip Lee-Arthroplasty: Recent admit 04/23-04/26/17 w/ right hip fx after fall, s/p Right Hip Lee-Arthroplasty 04/23/17. Continue w/ PT. Avoid narcotics if possible Hyperglycemia. A1c 5.7 Constipation. She had a bowel movement yesterday. Discussed with RN to continue bowel regimen and give as needed medications FEN. IV fluids if by mouth is less than 50% DVT Prophylaxis: Resume Xarelto after lumbar puncture Discharge Planning Plan to DC to SNF. Lyn Doss MD May 04, 2017 13:22
--- NOTE | 2017-05-04 14:28 | HHI.DS ---
Discharge Summary Admission Date May 03, 2017 at 10:43 Discharge Date: May 04, 2017 Admitting Diagnosis altered Mental Status (1) Encephalopathy ICD Code: G93.40 - Encephalopathy, unspecified (2) UTI (urinary tract infection) ICD Code: N39.0 - Urinary tract infection, site not specified (3) Dementia ICD Code: F03.90 - Unspecified dementia without behavioral disturbance (4) Status post right hip replacement ICD Code: Z96.641 - Presence of right artificial hip joint Procedures Lumbar puncture Brief History - From Admission This is a 77-year-old female with a PMH of HTN and Dementia who was sent to the ER from [facility] secondary to AMS. Recent admit 04/23-04/26/17 s/p fall w/ Right Hip Fx, s/p Right Hip Lee-Arthroplasty 04/23/17, was d/c'd to SNF today, however noted by Daughter to be very confused. Daughter states she arrived from [place] last night and found pt to be incoherent, acting bizarrely today. No reported fever, chills. On arrival, BP 147/84, HR 82, O2 sat 95% on RA, Temp 99.8. WBC 11.8. GFR 68. Pulmonary negative. UA with small LE, mild bacteriuria. CT Head with no acute findings. CXR with no acute findings. CBC/BMP: 05/02/17 0456 05/02/17 0456 Significant Findings Laboratory Tests Test 05/02/17 04:56 05/02/17 13:05 05/03/17 09:46 Monocytes (%) (Auto) 14.0 % (0.0-8.0) Eosinophils (%) (Auto) 6.0 % (0.0-4.0) Monocytes # (Auto) 1.3 TH/MM3 (0-0.9) Eosinophils # (Auto) 0.5 TH/MM3 (0-0.4) Random Glucose 107 MG/DL (74-106) Albumin 2.6 GM/DL (3.4-5.0) Estimat Glomerular Filtration Rate 87 ML/MIN (>89) Albumin/Globulin Ratio 1.00 (1.39-2.23) Pglfl-0-Qjpwiylkt 0.30 GM/DL (0.11-0.29) Msngi-2-Enfsjzghl 1.12 GM/DL (0.22-1.00) Vitamin B12 Level 1119 PG/ML (193-986) Free Thyroxine 1.59 NG/DL (0.76-1.46) Imaging Last Impressions Lumbar Puncture Fluoroscopy 05/03/17 0000 Signed Impressions: Service Date/Time: April 10:40 - CONCLUSION: Uncomplicated fluoroscopically guided lumbar puncture. Hugh Elizalde MD Chest X-Ray 05/03/17 0000 Signed Impressions: Service Date/Time: April 08:33 - CONCLUSION: No acute disease. Alberto Figueroa Jr., MD Brain MRI 04/29/17 0000 Signed Impressions: Service Date/Time: Saturday, April 29, 2017 15:24 - CONCLUSION: 1. No acute intracranial abnormality is identified. There are no findings to indicate recent ischemia. 2. Chronic changes include generalized atrophy and periventricular and subcortical white matter signal changes characteristic of chronic microvascular ischemia. Monroe James MD Hip and Pelvis X-Ray 04/28/17 0000 Signed Impressions: Service Date/Time: Friday, April 28, 2017 05:18 - CONCLUSION: Post surgical changes as above. Kristopher Harman MD Head CT 04/26/17 0000 Signed Impressions: Service Date/Time: April 22:47 - CONCLUSION: 1. No evidence of acute intracranial pathology. No masses are identified. Kristopher Harman MD PE at Discharge GENERAL: Elderly white female in no acute distress CARDIOVASCULAR: Regular rate and rhythm. No obvious murmurs to auscultation. No chest tenderness to palpation. RESPIRATORY: No obvious rhonchi or wheezing. Clear to auscultation. Breath sounds equal bilaterally. GASTROINTESTINAL: Abdomen soft, non-tender, nondistended. BS normal. MUSCULOSKELETAL: Extremities without clubbing, cyanosis, or edema. No obvious deformities. Right LE brace. Right hip wound with no signs of infection NEUROLOGICAL: Awake and confused. No focal neurologic deficits. Moving both upper and lower extremities spontaneously. Hospital Course Encephalopathy: Likely multifactorial-underlying dementia w/ recent hospitalization/surgical intervention, sleep deprivation, constipation, meds and UTI. CT Head w/ no acute findings, as well as brain MRI. EEG and ammonia level unremarkable. She is worse with low-grade fever. Repeat chest x-ray negative. Status post lumbar puncture follow-up CSF studies. F UTI: Status post Rocephin Dementia: Resume home Namenda Right Hip Lee-Arthroplasty: Recent admit 04/23-04/26/17 w/ right hip fx after fall, s/p Right Hip Lee-Arthroplasty 04/23/17. Continue w/ PT. Avoid narcotics if possible Hyperglycemia. A1c 5.7 Constipation. She had a bowel movement yesterday. Discussed with RN to continue bowel regimen and give as needed medications FEN. IV fluids if by mouth is less than 50% DVT Prophylaxis: Resume Xarelto after lumbar puncture Patient improved, DC to SNF, in stable condition, to follow up as OP with PCP and consultants . Pt Condition on Discharge: Stable Discharge Disposition: Discharge to SNF Discharge Time: > 30 minutes Discharge Instructions DIET: Follow Instructions for: Heart Healthy Diet Speech Therapy-Diet Recommends: Mechanical Soft Activities you can perform: Regular-No Restrictions Activities to Avoid: Driving Follow up Referrals: Orthopedics - 2 Weeks PCP Follow-up - 1 Week New Medications: [Lactulose Liq] () 30 ML SYRP 30 ML PO DAILY for Constipation for 5 Days, #1 BOTTLE Please give daily until first bowel movement Continued Medications: Calcium Carbonate-Vitamin D (Calcium 600+D 200) 600-200 Mg-Unit Tab 1 TAB PO BID for Nutritional Supplement, #90 TAB 0 Refills Diltiazem ER 24 HR (Cartia Xt) 120 Mg Caper 120 MG PO DAILY, #30 CAP 0 Refills Ergocalciferol (Ergocalciferol) 50,000 Unit Cap 05749 UNITS PO Q7D for Nutritional Supplement, #8 CAP Magnesium Hydroxide (Qc Milk of Magnesia) 400 Mg/5 Ml Brenda 30 ML PO BID PRN for constipation, #500 ML 0 Refills Memantine (Namenda) 5 Mg Tab 5 MG PO BID for Alzheimer Disease, #60 TAB 0 Refills Rivaroxaban (Xarelto) 10 Mg Tab 10 MG PO DAILY for Blood Clot Prevention, #21 TAB 0 Refills Walker/Adult/Folding (Walker/Adult/Folding) 1 Mis Mis EA .ROUTE DIRECTED, #1 0 Refills Discontinued Medications: Hydrocodone-Acetaminophen (Hydrocodone-Acetaminophen) 7.5-325 mg Tab 1 TAB PO Q4H PRN for PAIN, #60 TAB 0 Refills yLn Doss MD May 04, 2017 14:27
[2017-05-05 17:52] LABS: VDRL CSF NON-REACTIVE (NON-REACTVE)
[2017-05-06 10:44] LABS: CSF CRYPTOCOCCUS AG CONF ND (NOT DETECTD)
== END 2017-05-04 20:25 | DRG 71 ==
LOC: NEPC 21:02 → NEDA 23:55 → NEPFCDU 04-27 00:43 → OBSVTOIN 05-03 10:43 → N05A 05-03 14:33
PROVIDERS: ADMIT Hospitalist; ATTEND Hospitalist
PROC: 009U3ZX Drainage of Spinal Canal, Percutaneous Approach, Diagnostic (ICD-10-PCS; principal; 2017-05-03)
PROC: B01BZZZ Fluoroscopy of Spinal Cord (ICD-10-PCS; 2017-05-03)
DX: G93.40 Encephalopathy, unspecified (principal); F05 Delirium due to known physiological condition; G30.9 Alzheimer's disease, unspecified; I11.9 Hypertensive heart disease without heart failure; N39.0 Urinary tract infection, site not specified; F02.80 Dementia in other diseases classified elsewhere, unspecified severity, without behavioral disturbance, psychotic disturbance, mood disturbance, and anxiety; K59.00 Constipation, unspecified; Z66 Do not resuscitate; R73.9 Hyperglycemia, unspecified; G25.3 Myoclonus; Z96.641 Presence of right artificial hip joint; Z51.5 Encounter for palliative care; Z79.01 Long term (current) use of anticoagulants
CPT/HCPCS: 62270; 70450; 70551; 71010; 73501; 77003; 80048; 80053; 81001; 82140; 82550; 82552; 82607; 82945; 83036; 83605; 83690; 83735; 84157; 84165; 84439; 84443; 84484; 85025; 85610; 85730; 86403; 86592; 86651; 86652; 86653; 86654; 87015; 87040; 87070; 87102; 87116; 87205; 87206; 87529; 89051; 93005; 94150; 94640; 94664; 95819; G8987-GO; G8987-GP; G8988-GO; G8988-GP; G8996-GN; G8997-GN; G8998-GN; J0696; J3480; J7613

== ENCOUNTER 2017-06-03 20:38 | Emergency (ER) | payer MEDICARE ==
[~2017-06-03] VITALS: Ht 160 cm; Wt 60.0 kg
[~2017-06-03 20:38] MED LIST changes: -HYDR-3580 PO; +Lactulose Liq PO
--- NOTE | 2017-06-03 20:48 | PD ---
HPI Chief Complaint: Hip Injury Time Seen by Provider: 20:46 Travel History International Travel<30 days: No Contact w/Intl Traveler<30days: No History of Present Illness HPI 77-year-old female arrives by EMS due to pain in the right hip with shortening and internal rotation of the right lower extremity. No known fall recently. The patient underwent ORIF approximately one month prior due to right hip fracture done by Dr. Self. Constant pain reported. EMS gave 10 mg of morphine in total. EMS notes persistent complaints of pain with any movement. PFSH Past Medical History Alzheimer's Disease: Yes Asthma: Yes Autoimmune Disease: No Blood Disorders: No Heart Rhythm Problems: Yes Cancer: No Cardiovascular Problems: No Diminished Hearing: No Endocrine: No Gastrointestinal Disorders: No Genitourinary: No Neurologic: No Psychiatric: No Reproductive: No Immunizations Current: Yes Para: 4 Past Surgical History Joint Replacement: Yes (R HIP) Other Surgery: Yes (WRIST ) Social History Alcohol Use: No Tobacco Use: No Substance Use: No Allergies-Medications (Allergen,Severity, Reaction): Coded Allergies: Sulfa (Sulfonamide Antibiotics) (Unverified Allergy, Severe, 06/03/17) Reported Meds & Prescriptions Reported Meds & Active Scripts Active Macrobid (Nitrofurantoin Monohydrate Macrocrystals) 100 Mg Capsule 100 Mg PO BID 5 Days [Lactulose Liq] 30 ML Syrp 30 Ml PO DAILY 5 Days Please give daily until first bowel movement Qc Milk of Magnesia (Magnesium Hydroxide) 400 Mg/5 Ml Brenda 30 Ml PO BID PRN Calcium 600+D 200 (Calcium Carbonate-Vitamin D) 600-200 Mg-Unit Tab 1 Tab PO BID Ergocalciferol 50,000 Unit Cap 50,000 Units PO Q7D Xarelto (Rivaroxaban) 10 Mg Tab 10 Mg PO DAILY Walker/Adult/Folding (Device) 1 Mis Mis Ea .ROUTE DIRECTED Reported Cartia Xt (Diltiazem ER 24 HR) 120 Mg Caper 120 Mg PO DAILY Namenda (Memantine) 5 Mg Tab 5 Mg PO BID Review of Systems Except as stated in HPI: all other systems reviewed are Neg General / Constitutional: No: Fever Musculoskeletal: Positive: Pain Physical Exam Narrative GENERAL: 77 yo F, WNWD, moderate distress 2/2 pain SKIN: Warm and dry. HEAD: Atraumatic. Normocephalic. EYES: Pupils equal and round. No scleral icterus. No injection or drainage. ENT: No nasal bleeding or discharge. Mucous membranes pink and moist. NECK: Trachea midline. No JVD. CARDIOVASCULAR: Regular rate and rhythm. RESPIRATORY: No accessory muscle use. Clear to auscultation. Breath sounds equal bilaterally. GASTROINTESTINAL: Abdomen soft, non-tender, nondistended. Hepatic and splenic margins not palpable. MUSCULOSKELETAL: RLE shortened, internally rotated. 2+ DP bilaterally. NEUROLOGICAL: Awake and alert. No obvious cranial nerve deficits. Motor grossly within normal limits. Five out of 5 muscle strength in the arms and legs. Normal speech. PSYCHIATRIC: Appropriate mood and affect; insight and judgment normal. Data Data Last Documented VS Vital Signs Date Time Temp Pulse Resp B/P (MAP) Pulse Ox O2 Delivery O2 Flow Rate FiO2 06/03/17 21:50 100 3.00 06/03/17 21:50 Nasal Cannula 06/03/17 20:53 16 06/03/17 20:50 98.6 96 124/78 (93) VS reviewed Orders Orders Hip, Uni(Ap&Lat) Wo Ap Pelvis (06/03/17 20:46) Iv Access Insert/Monitor (06/03/17 20:46) Oximetry (06/03/17 20:46) [employer] Request For Service (06/03/17 20:46) Ecg Monitoring (06/03/17 20:46) Sodium Chloride 0.9% Flush (Ns Flush) (06/03/17 21:00) Propofol 200 Mg/20 Ml Inj (Diprivan 200 (06/03/17 21:30) Hip, Ap Only Wo Ap Pelvis (06/03/17 ) ^ Straight Catheter (06/03/17 21:58) Urinalysis - C+S If Indicated (06/03/17 21:58) Immobilizer Knee 20 Inch (06/03/17 ) Urine Culture (06/03/17 22:56) Ed Discharge Order (06/03/17 23:45) Ceftriaxone Inj (Rocephin Inj) (06/04/17 00:00) Labs Laboratory Tests Test 06/03/17 22:56 Urine Color YELLOW Urine Turbidity HAZY Urine pH 8.5 Urine Specific [place] 1.020 Urine Protein 300 mg/dL Urine Glucose (UA) NEG mg/dL Urine Ketones 40 mg/dL Urine Occult Blood SMALL Urine Nitrite NEG Urine Bilirubin NEG Urine Urobilinogen LESS THAN 2.0 MG/DL Urine Leukocyte Esterase LARGE Urine RBC /hpf Urine WBC 20 /hpf Urine Squamous Epithelial Cells 1 /hpf Urine Transitional Epithelial Cells <1 /hpf Urine Renal Epithelial Cells 1 /hpf Urine Uric Acid Crystals FEW /hpf Urine Amorphous Sediment RARE Urine Bacteria RARE /hpf Urine Hyaline Casts 2 /lpf Urine Mucus FEW /lpf Microscopic Urinalysis Comment CATH-CULTURE IND MDM Medical Decision Making Medical Screen Exam Complete: Yes Emergency Medical Condition: Yes Medical Record Reviewed: Yes Differential Diagnosis fracture, dislocation, contusion Narrative Course UA: UTI PRESENT Last Impressions Hip X-Ray 06/03/176 Signed Impressions: Service Date/Time: Saturday, June 03, 2017 21:00 - CONCLUSION: Dislocation of a right femoral head prosthesis. Monroe Atkins MD Hip X-Ray 06/03/17 0000 Signed Impressions: Service Date/Time: Saturday, June 03, 2017 22:11 - CONCLUSION: Successful reduction of the previous is seen femoral head prosthetic component dislocation. Monroe Atkins MD Successful bedside hip reduction d/w Alonso for Dr Self, posterior hip precautions, knee immobilizer, 5-% non- weight bearing, return to rehab facility for ongoing rehabilitation Procedures Procedure Narrative The patient was placed on a school lunch monitor and pulse oximetry. An ambu bag and suction was immediately available at bedside. The patient was monitored by the nurse. Oxygen saturation, heart rate and blood pressure were monitored. Procedural sedation was acheived using propofol. The patient was observed until awake and alert. Procedural Sedation time in attendance was 15 minutes. RIGHT HIP DISLOCATION REDUCED WITH TRACTION COUNTERTRACTION TECHNIQUE. PALPABLE CLUNK. 2+ RADIAL ARTERY PULSE BEFORE AND AFTER. WELL-TOLERATED BY PATIENT. Diagnosis Primary Impression: UTI (urinary tract infection) Qualified Codes: N30.00 - Acute cystitis without hematuria Additional Impression: Hip dislocation, right Qualified Codes: S73.004A - Unspecified dislocation of right hip, initial encounter Referrals: Primary Care Physician 2 days Additional Instructions: PLEASE MAINTAIN RIGHT KNEE IMMOBILIZATION 08/01 PLEASE ADHERE TO POSTERIOR HIP PRECAUTIONS 08/01 PLEASE ADHERE TO 50% WEIGHT BEARING CRITERIA Med/Other Pt SpecificInfo: Prescription(s) given Scripts Nitrofurantoin Monohydrate Macrocrystals (Macrobid) 100 Mg Capsule 100 MG PO BID for Infection for 5 Days, #10 CAP 0 Refills Prov: Chang Villafana MD 06/03/17 Disposition: 01 DISCHARGE HOME Condition: Stable Chang Villafana MD Jun 03, 2017 20:48
[2017-06-03 20:50] VITALS: BP 124/78; PULSE 96; RESP 20; TEMP 98.6; O2SAT 97
[2017-06-03 20:53] VITALS: RESP 16; O2SAT 97
[2017-06-03] MEDS ORDERED: SODIUM CHLORIDE 0.9% FLUSH 10 ML FLUSH IVF PRN (21:00)
--- NOTE | 2017-06-03 21:24 | RADRPT ---
EXAM DATE/TIME: 06/03/2017 21:00 [facility] COMPARISON: No previous studies available for comparison. INDICATIONS : Dislocation right hip MEDICAL HISTORY : Dementia. Hypertension. Asthma. SURGICAL HISTORY : Right total hip replacement ENCOUNTER: Initial ACUITY: 1 day PAIN SCORE: 10/10 LOCATION: Right Hip FINDINGS: There is a bipolar hip prosthesis seen on the right. The femoral component and femur is dislocated beasley periorly and laterally. The left hip joint appears normally aligned. CONCLUSION: Dislocation of a right femoral head prosthesis. Monroe Atkins MD on June 03, 2017 at 21:22 Board Certified Radiologist. This report was verified electronically.
[2017-06-03] MEDS ORDERED: PROPOFOL 200 MG/20 ML AMP IV ONE (21:30)
[2017-06-03 21:50] VITALS: O2SAT 100
[2017-06-03 22:00] VITALS: BP 106/75; PULSE 79; RESP 16; O2SAT 98
--- NOTE | 2017-06-03 22:17 | RADRPT ---
EXAM DATE/TIME: 06/03/2017 22:11 [facility] COMPARISON: HIP RIGHT (AP&LAT 2/3VWS) WO AP PELVIS, June 03, 2017, 21:00. INDICATIONS : Post reduction MEDICAL HISTORY : Dementia. Hypertension. Asthma SURGICAL HISTORY : Right total hip replacement ENCOUNTER: Subsequent ACUITY: 1 day PAIN SCORE: Non-responsive. LOCATION: Right Hip FINDINGS: The previously seen femoral head prosthetic component dislocation has been successfully reduced. The prosthetic femoral head now is seen within the acetabulum. CONCLUSION: Successful reduction of the previous is seen femoral head prosthetic component dislocation. Monroe Atkins MD on June 03, 2017 at 22:13 Board Certified Radiologist. This report was verified electronically.
[2017-06-03 23:40] LABS: AMORPHOUS SEDIMENT, URINE RARE; BACTERIA, URINE RARE /hpf; BILIRUBIN, URINE NEG (NEG); BLOOD, URINE SMALL (NEG); GLUCOSE,URINE NEG (NEG); HYALINE CAST, URINE 2 /lpf (RARE); KETONE, URINE 40 mg/dL (NEG); MUCUS URINE FEW /lpf (OCC); NITRITE,URINE NEG (NEG); PH, URINE 8.5 (5.0-8.5); RENAL EPITHELIAL CELLS 1 /hpf; SQUAMOUS EPITHELIAL CELL URINE 1 /hpf (0-5); TRANSITIONAL EPI CELLS, URINE <1 /hpf; URIC ACID CRYSTALS, URINE FEW /hpf; URINE COLOR YELLOW (YELLW/STRAW); URINE LEUKOCYTE ESTERASE LARGE (NEG)
[2017-06-03] MEDS ORDERED: MACR100C2 PO (23:47)
[2017-06-04] MEDS ORDERED: cefTRIAXone INJ 1,000 MG in SODIUM CHLORIDE 0.9% INJ 100 ML IV ONE ×2
[2017-06-04 03:56] VITALS: BP 104/78; PULSE 82; RESP 14; O2SAT 99
[2017-06-04 08:24] VITALS: BP 133/64; PULSE 93; RESP 16; O2SAT 95
[2017-06-04 09:29] VITALS: BP 127/68
== END 2017-06-04 09:34 | disposition home or self-care (01) ==
LOC: NEPC 20:38
DX: S73.004A Unspecified dislocation of right hip, initial encounter (principal); N39.0 Urinary tract infection, site not specified; B96.89 Other specified bacterial agents as the cause of diseases classified elsewhere; G30.9 Alzheimer's disease, unspecified; F02.80 Dementia in other diseases classified elsewhere, unspecified severity, without behavioral disturbance, psychotic disturbance, mood disturbance, and anxiety; J45.909 Unspecified asthma, uncomplicated; X58.XXXA Exposure to other specified factors, initial encounter; Z79.899 Other long term (current) drug therapy; Z88.2 Allergy status to sulfonamides
CPT/HCPCS: 27265; 73501; 73502; 81001; 87086; 96374; 99152; 99285; J0696; L1830

== ENCOUNTER 2017-07-12 18:53 | Observation (INO) | payer MEDICARE ==
[~2017-07-12] VITALS: Ht 167.6 cm; Wt 55.0 kg
[~2017-07-12 18:53] MED LIST changes: +MACR100C2 PO
[2017-07-12 19:03] VITALS: BP 128/82; PULSE 60; RESP 16; O2SAT 95
[2017-07-12] MEDS ORDERED: SODIUM CHLOR 0.9% 1000 ML INJ 1,000 ML IV ONE (19:15)
[2017-07-12] MEDS ORDERED: KETOROLAC TROMETHAMINE 30 MG/ML (IVP) VIAL IV PUSH ONE (19:15)
[2017-07-12] MEDS ORDERED: ACETAMINOPHEN 325 MG TAB PO ONE (19:15)
--- NOTE | 2017-07-12 19:52 | PD ---
HPI Chief Complaint: Hip Injury Time Seen by Provider: 18:58 Travel History International Travel<30 days: No Contact w/Intl Traveler<30days: No Traveled to known affect area: No History of Present Illness HPI 77-year-old female that presents to the ED for evaluation of possible right hip injury and fever. Per ambulance report who [facility] apparently patient was found to have an abnormality to his right hip. They do not know how long ago was about the bleed is between night and day shift. She noted that the patient will move her right hip and was brought here for evaluation. Per ambulance report when they saw her do noted that she had a high fever and she was very hot to touch. She had a 124 rate. The results and fluids which did seem to help with her symptoms. She was not given Tylenol. Patient herself is demented and history is very limited. No history of trauma or fall per report and for the most per patient is bedridden secondary to the hip injury she sustained a month ago. She currently lives [facility] a [facility] and has end-stage dementia. Patient had this surgery by Dr. Self about a month ago. Patient was seen here with a couple weeks ago for this. Patient hasn't only to sulfa. Other medical issues. Patient herself cannot give any history. She does appear to be demented. Again most of the history was obtained from the ambulance. Pain appears to be moderate with any touch of the right hip. PFSH Past Medical History Alzheimer's Disease: Yes Asthma: Yes Autoimmune Disease: No Blood Disorders: No Heart Rhythm Problems: Yes Cancer: No Cardiovascular Problems: No Diminished Hearing: No Endocrine: No Gastrointestinal Disorders: No Genitourinary: No Implanted Vascular Access Dvce: Yes Neurologic: No Psychiatric: No Reproductive: No Immunizations Current: Yes Para: 4 Past Surgical History Joint Replacement: Yes (R HIP) Other Surgery: Yes (WRIST ) Social History Alcohol Use: No Tobacco Use: No Substance Use: No Allergies-Medications (Allergen,Severity, Reaction): Coded Allergies: Sulfa (Sulfonamide Antibiotics) (Unverified Allergy, Severe, 06/03/17) Reported Meds & Prescriptions Reported Meds & Active Scripts Active Macrobid (Nitrofurantoin Monohydrate Macrocrystals) 100 Mg Capsule 100 Mg PO BID 5 Days [Lactulose Liq] 30 ML Syrp 30 Ml PO DAILY 5 Days Please give daily until first bowel movement Qc Milk of Magnesia (Magnesium Hydroxide) 400 Mg/5 Ml Brenda 30 Ml PO BID PRN Calcium 600+D 200 (Calcium Carbonate-Vitamin D) 600-200 Mg-Unit Tab 1 Tab PO BID Ergocalciferol 50,000 Unit Cap 50,000 Units PO Q7D Xarelto (Rivaroxaban) 10 Mg Tab 10 Mg PO DAILY Walker/Adult/Folding (Device) 1 Mis Mis Ea .ROUTE DIRECTED Reported Cartia Xt (Diltiazem ER 24 HR) 120 Mg Caper 120 Mg PO DAILY Namenda (Memantine) 5 Mg Tab 5 Mg PO BID Review of Systems ROS Limitations: Poor Historian Except as stated in HPI: all other systems reviewed are Neg Physical Exam Exam Limitations: Poor Historian Narrative GENERAL: SKIN: Warm and dry. HEAD: Atraumatic. Normocephalic. EYES: Pupils equal and round. No scleral icterus. No injection or drainage. ENT: No nasal bleeding or discharge. Mucous membranes pink and moist. Tongue is midline. No uvula deviation NECK: Trachea midline. No JVD. CARDIOVASCULAR: Regular rate and rhythm. No murmurs, S3, S4. RESPIRATORY: No accessory muscle use. Clear to auscultation. Breath sounds equal bilaterally. GASTROINTESTINAL: Abdomen soft, non-tender, nondistended. Hepatic and splenic margins not palpable. MUSCULOSKELETAL: Extremities without clubbing, cyanosis, or edema. No obvious deformities. Full range of motion of the upper and lower extremities bilaterally with exception of the right hip where there is shortening and patient cannot move it whatsoever. 2+ pulses bilaterally. Sensation intact bilaterally. NEUROLOGICAL: Awake and alert. No obvious cranial nerve deficits. Motor grossly within normal limits. Five out of 5 muscle strength in the arms and legs. Normal speech. PSYCHIATRIC: Appropriate mood and affect; insight and judgment normal. Data Data Last Documented VS Vital Signs Date Time Temp Pulse Resp B/P (MAP) Pulse Ox O2 Delivery O2 Flow Rate FiO2 07/12/17 20:37 96 Room Air 07/12/17 20:36 99.4 84 18 126/82 (97) Orders Orders Electrocardiogram (07/12/17 19:02) Complete Blood Count With Diff (07/12/17 19:02) Comprehensive Metabolic Panel (07/12/17 19:02) Prothrombin Time / Inr (Pt) (07/12/17 19:02) Act Partial Throm Time (Ptt) (07/12/17 19:02) Blood Culture (07/12/17 19:02) Lipase (07/12/17 19:02) Urinalysis - C+S If Indicated (07/12/17 19:02) Magnesium (Mg) (07/12/17 19:02) Chest, Single Ap (07/12/17 19:02) Iv Access Insert/Monitor (07/12/17 19:02) Ecg Monitoring (07/12/17 19:02) Oximetry (07/12/17 19:02) Sodium Chlor 0.9% 1000 Ml Inj (Ns 1000 M (07/12/17 19:15) Acetaminophen (Tylenol) (07/12/17 19:15) Hip, Uni(Ap&Lat) W Ap Pelvis (07/12/17 ) Ketorolac Inj (Toradol Inj) (07/12/17 19:15) Lactic Acid Sepsis Protocol (07/12/17 19:16) Propofol 200 Mg/20 Ml Inj (Diprivan 200 (07/12/17 20:15) Cath For Specimen (07/12/17 20:46) Hip, Ap Only Wo Ap Pelvis (07/12/17 ) Urinary Catheter Insert/Apply (07/12/17 21:39) Ceftriaxone Inj (Rocephin Inj) (07/12/17 22:00) Hip, Ap Only Wo Ap Pelvis (07/12/17 ) Immobilizer Knee 20 Inch (07/12/17 ) Admit Order (Ed Use Only) (07/12/17 23:08) Labs Laboratory Tests Test 07/12/17 20:08 White Blood Count 12.4 TH/MM3 Red Blood Count 4.21 MIL/MM3 Hemoglobin 12.5 GM/DL Hematocrit 37.8 % Mean Corpuscular Volume 89.7 FL Mean Corpuscular Hemoglobin 29.8 PG Mean Corpuscular Hemoglobin Concent 33.2 % Red Cell Distribution Width 13.7 % Platelet Count 226 TH/MM3 Mean Platelet Volume 10.3 FL Neutrophils (%) (Auto) 76.1 % Lymphocytes (%) (Auto) 14.9 % Monocytes (%) (Auto) 8.4 % Eosinophils (%) (Auto) 0.4 % Basophils (%) (Auto) 0.2 % Neutrophils # (Auto) 9.4 TH/MM3 Lymphocytes # (Auto) 1.8 TH/MM3 Monocytes # (Auto) 1.0 TH/MM3 Eosinophils # (Auto) 0.1 TH/MM3 Basophils # (Auto) 0.0 TH/MM3 CBC Comment DIFF FINAL Differential Comment Prothrombin Time 10.0 SEC Prothromb Time International Ratio 1.0 RATIO Activated Partial Thromboplast Time 24.4 SEC Blood Urea Nitrogen 24 MG/DL Creatinine 0.88 MG/DL Random Glucose 123 MG/DL Total Protein 6.5 GM/DL Albumin 2.4 GM/DL Calcium Level 8.4 MG/DL Magnesium Level 2.4 MG/DL Alkaline Phosphatase 64 U/L Aspartate Amino Transf (AST/SGOT) 31 U/L Alanine Aminotransferase (ALT/SGPT) 31 U/L Total Bilirubin 0.2 MG/DL Sodium Level 148 MEQ/L Potassium Level 4.3 MEQ/L Chloride Level 113 MEQ/L Carbon Dioxide Level 31.6 MEQ/L Anion Gap 3 MEQ/L Estimat Glomerular Filtration Rate 62 ML/MIN Lactic Acid Level 2.7 mmol/L Lipase 278 U/L MDM Medical Decision Making Medical Screen Exam Complete: Yes Emergency Medical Condition: Yes Medical Record Reviewed: Yes Interpretation(s) CBC & BMP Diagram 07/12/17 20:08 Total Protein 6.5, Albumin 2.4 L, Calcium Level 8.4 L, Magnesium Level 2.4, Alkaline Phosphatase 64, Aspartate Amino Transf (AST/SGOT) 31, Alanine Aminotransferase (ALT/SGPT) 31, Total Bilirubin 0.2 lactic acid of 2.7 Last Impressions Chest X-Ray 07/12/17 1902 Signed Impressions: Service Date/Time: June 19:23 - CONCLUSION: No evidence of acute cardiopulmonary disease there Monroe Lu MD Hip and Pelvis X-Ray 07/12/17 0000 Signed Impressions: Service Date/Time: June 19:23 - CONCLUSION: Posterior/superior dislocation of the bipolar right hip arthroplasty. No acute fracture seen. Monroe Lu MD Hip X-Ray 07/12/17 0000 Signed Impressions: Service Date/Time: June 21:39 - CONCLUSION: Persistent dislocation of the right hip bipolar arthroplasty. Monroe Lu MD Differential Diagnosis Hip fracture versus dislocation versus sepsis versus UTI versus encephalopathy Narrative Course 77-year-old female that presents to the ED for evaluation of right hip injury and possible sepsis. Labs and imaging were ordered. X-ray did show dislocation of the hip. Case was discussed in my attending doctor christmas tree contractor to was made aware of findings and agrees with conscious sedation for reduction. Labs and imaging scan back showing what appears to be mild sepsis. Patient does have an elevated lactic acid some leukocytosis. Urine still pending. X- ray did show dislocation. Attempts were made to get the dislocation reduced with success after the third trial. Please refer to my procedure note. Conscious patient was done under supervision of my attendings Dr. Sullivan AND DR. Villafana at all times. My attending spoke with Dr Glasgow who agrees to admission for UTI and altered mental status. Procedures Procedure Narrative After the risks and benefits were discussed the following procedure was performed by my attending Dr Sullivan and Dr Villafana with assistance of ABDELRAHMAN Mcdonough and myself: MODERATE SEDATION: The patient was placed on a medical doctor md/medical director and pulse oximetry. An ambu bag and suction was immediately available at bedside. The patient was monitored by the nurse. Oxygen saturation, heart rate and blood pressure were monitored. Procedural sedation was acheived using 75 mg of Propofol. The patient was observed until awake and alert. Procedural Sedation time in attendance was 15 minutes. Hip reduction was done while patient was sedated using "captain arleen" trial with success after enough pressure applied. Splint was applied. Sepsis Criteria SIRS Criteria (2 or more): WBC > 35253, < 4000 or > 10% bands Sepsis Criteria (SIRS+source): Infect source susp/known Diagnosis Primary Impression: UTI (urinary tract infection) Qualified Codes: N30.00 - Acute cystitis without hematuria Additional Impressions: Dementia Qualified Codes: F03.91 - Unspecified dementia with behavioral disturbance Status post right hip replacement Encephalopathy Admitting Information Admitting Physician Requests: Observation Wilberto Keating Jul 12, 2017 19:52
--- NOTE | 2017-07-12 19:54 | RADRPT ---
EXAM DATE/TIME: 07/12/2017 19:23 [facility] COMPARISON: No previous studies available for comparison. INDICATIONS : Shortness of breath. MEDICAL HISTORY : Dementia. Hypertension. Asthma. SURGICAL HISTORY : Right total hip replacement. ENCOUNTER: Initial ACUITY: 1 day PAIN SCORE: Non-responsive. LOCATION: Bilateral chest FINDINGS: A single view of the chest demonstrates the lungs to be symmetrically aerated without evidence of mas s, infiltrate or effusion. The cardiomediastinal contours are unremarkable. Osseous structures are intact. CONCLUSION: No evidence of acute cardiopulmonary disease there Monroe Lu MD on July 12, 2017 at 19:51 Board Certified Radiologist. This report was verified electronically.
--- NOTE | 2017-07-12 20:05 | RADRPT ---
EXAM DATE/TIME: 07/12/2017 19:23 [facility] COMPARISON: HIP RIGHT (AP&LAT 2/3VWS) WO AP PELVIS, June 03, 2017, 21:00. HIP RIGHT AP ONLY WO AP PELVIS, 2016, 22:11. INDICATIONS : Right hip pain and dislocation after fall. MEDICAL HISTORY : Dementia. Hypertension. Asthma. SURGICAL HISTORY : Right total hip replacement ENCOUNTER: Initial ACUITY: 1 day PAIN SCORE: Non-responsive. LOCATION: Right hip FINDINGS: Patient has a bipolar right hip arthroplasty. The entire arthroplasty is dislocated out of the acetab ulum posteriorly and superiorly. There is an approximately 2 cm fracture fragment or hypertrophic bon e superior to the lateral acetabular margin but this is not new. No other fractures are seen. CONCLUSION: Posterior/superior dislocation of the bipolar right hip arthroplasty. No acute fracture seen. Monroe Lu MD on July 12, 2017 at 20:00 Board Certified Radiologist. This report was verified electronically.
[2017-07-12] MEDS ORDERED: PROPOFOL 200 MG/20 ML AMP IV ONE (20:15)
[2017-07-12 20:36] VITALS: BP 126/82; PULSE 84; RESP 18; TEMP 99.4; O2SAT 97
[2017-07-12 20:44] LABS: AUTOMATED NEUTROPHIL # 9.4 TH/MM3 (1.8-7.7); BASOPHIL % 0.2 % (0.0-2.0); EOSINOPHIL # 0.1 TH/MM3 (0-0.4); EOSINOPHIL % 0.4 % (0.0-4.0); HEMATOCRIT 37.8 % (35.0-46.0); HEMOGLOBIN 12.5 GM/DL (11.6-15.3); LYMPH % 14.9 % (9.0-44.0); LYMPHOCYTE # 1.8 TH/MM3 (1.0-4.8); MEAN CELL VOLUME 89.7 FL (80.0-100.0); MEAN CORPUSCULAR HEMOGLOBIN 29.8 PG (27.0-34.0); MEAN CORPUSCULAR HGB CONC 33.2 % (32.0-36.0); MEAN PLATELET VOLUME 10.3 FL (7.0-11.0); MONO % 8.4 % (0.0-8.0); NEUT % 76.1 % (16.0-70.0); PLATELET COUNT 226 TH/MM3 (150-450); RED BLOOD COUNT 4.21 MIL/MM3 (4.00-5.30); RED CELL DISTRIBUTION WIDTH 13.7 % (11.6-17.2); WHITE BLOOD COUNT 12.4 TH/MM3 (4.0-11.0)
[2017-07-12 20:55] LABS: LACTIC ACID SEPSIS PROTOCOL 2.7 mmol/L (0.4-2.0)
[2017-07-12 20:59] LABS: ALBUMIN 2.4 GM/DL (3.4-5.0); AST (GOT) 31 U/L (15-37); BICARBONATE 31.6 MEQ/L (21.0-32.0); BLOOD UREA NITROGEN 24 MG/DL (7-18); CALCIUM 8.4 MG/DL (8.5-10.1); CHLORIDE 113 MEQ/L (98-107); CREATININE 0.88 MG/DL (0.50-1.00); GLOMERULAR FILTRATION RATE 62 ML/MIN (>89); GLUCOSE,RANDOM 123 MG/DL (74-106); LIPASE 278 U/L (73-393); MAGNESIUM 2.4 MG/DL (1.5-2.5); SODIUM (NA) 148 MEQ/L (136-145)
[2017-07-12 21:00] LABS: ALT (GPT) 31 U/L (10-53)
[2017-07-12 21:03] LABS: ALKALINE PHOSPHATASE 64 U/L (45-117); TOTAL BILIRUBIN ADULT 0.2 MG/DL (0.2-1.0); TOTAL PROTEIN 6.5 GM/DL (6.4-8.2)
[2017-07-12 21:20] VITALS: O2SAT 99
[2017-07-12] MEDS ORDERED: cefTRIAXone INJ 1,000 MG in SODIUM CHLORIDE 0.9% INJ 100 ML IV ONE (22:00)
--- NOTE | 2017-07-12 22:06 | RADRPT ---
EXAM DATE/TIME: 07/12/2017 21:39 [facility] COMPARISON: HIP RIGHT (AP&LAT 2/3VWS) W AP PELVIS, July 12, 2017, 19:23. INDICATIONS : Post reduction. MEDICAL HISTORY : Dementia. Hypertension. Asthma. SURGICAL HISTORY : Right total hip replacement ENCOUNTER: Initial ACUITY: 1 day PAIN SCORE: Non-responsive. LOCATION: Right hip FINDINGS: Right bipolar hip arthroplasty remains dislocated posterior/superior. No acute fracture seen. CONCLUSION: Persistent dislocation of the right hip bipolar arthroplasty. Monroe Lu MD on July 12, 2017 at 22:04 Board Certified Radiologist. This report was verified electronically.
[2017-07-12 22:20] VITALS: O2SAT 99
--- NOTE | 2017-07-12 22:51 | RADRPT ---
EXAM DATE/TIME: 07/12/2017 22:34 [facility] COMPARISON: HIP RIGHT AP ONLY WO AP PELVIS, July 12, 2017, 21:39. INDICATIONS : Post reduction right hip MEDICAL HISTORY : Dementia. Hypertension. Asthma. SURGICAL HISTORY : Right total hip replacement ENCOUNTER: Subsequent ACUITY: 1 day PAIN SCORE: Non-responsive. LOCATION: Right Hip FINDINGS: Bipolar right hip arthroplasty is now normally aligned. No acute fracture is demonstrated. CONCLUSION: Interim reduction of the bipolar right hip arthroplasty. Monroe Lu MD on July 12, 2017 at 22:48 Board Certified Radiologist. This report was verified electronically.
[2017-07-13] VITALS (10 sets, daily range): BP systolic 99–138; BP diastolic 53–72; PULSE 83–102; RESP 14–20; TEMP 97.7–99.4; O2SAT 98–100
[2017-07-13 00:01] LABS: AMORPHOUS SEDIMENT, URINE RARE; BACTERIA, URINE MANY /hpf; BILIRUBIN, URINE NEG (NEG); BLOOD, URINE SMALL (NEG); GLUCOSE,URINE NEG (NEG); HYALINE CAST, URINE 6 /lpf (RARE); KETONE, URINE NEG (NEG); NITRITE,URINE NEG (NEG); PH, URINE 6.5 (5.0-8.5); SQUAMOUS EPITHELIAL CELL URINE 11 /hpf (0-5); URINE COLOR YELLOW (YELLW/STRAW); URINE LEUKOCYTE ESTERASE LARGE (NEG)
[2017-07-13] MEDS ORDERED: SODIUM CHLOR 0.9% 1000 ML INJ 1,000 ML IV SCH (00:59)
[2017-07-13] MEDS ORDERED: ONDANSETRON HCL 4 MG/2 ML VIAL IVP PRN ×2 (01:00→08:00)
[2017-07-13] MEDS ORDERED: SODIUM CHLORIDE 0.9% FLUSH 10 ML FLUSH IV FLUSH PRN (01:00)
[2017-07-13] MEDS ORDERED: RESP: ALBUTEROL 2.5 MG/IPRATROPIUM 0.5 MG NEB (PRN) NEB (01:00)
[2017-07-13] MEDS ORDERED: ACETAMINOPHEN 325 MG TAB PO PRN ×2 (01:00→08:00)
--- NOTE | 2017-07-13 05:34 | HHI.HP ---
[facility] Unknown Admission Diagnosis encephalopathy, UTI, reduced hip dislocation Diagnoses: Travel History International Travel<30 Days: No Contact w/Intl Traveler <30 Da: No Traveled to Known Affected Are: No History of Present Illness 77-year-old female with a past medical history significant for hypertension and dementia presents to the emergency department for evaluation of right hip injury and fever. The patient is a resident of a [facility] and per report the patient was found to have limited range of motion of her right hip. Duration unclear. When EMS arrived they noted that the patient was febrile and gave her Tylenol. Patient is status post right hip hemiarthroplasty 04/23/17. Vital signs: Temperature 99.4, pulse 84, respirations 18, BP 126/82, pulse ox 97 % on room air. Patient was found to have a dislocated right hip and UA consistent with UTI. Review of Systems Unable to obtain secondary to clinic patient's clinical condition - s/p conscious sedation for hip reduction Past Family Social History Past Medical History (Obtained from medical records) Hypertension Dementia Past Surgical History Right hip hemiarthroplasty 04/23/17 Reported Medications Reported Meds & Active Scripts Active Macrobid (Nitrofurantoin Monohydrate Macrocrystals) 100 Mg Capsule 100 Mg PO BID 5 Days [Lactulose Liq] 30 ML Syrp 30 Ml PO DAILY 5 Days Please give daily until first bowel movement Qc Milk of Magnesia (Magnesium Hydroxide) 400 Mg/5 Ml Brenda 30 Ml PO BID PRN Calcium 600+D 200 (Calcium Carbonate-Vitamin D) 600-200 Mg-Unit Tab 1 Tab PO BID Ergocalciferol 50,000 Unit Cap 50,000 Units PO Q7D Xarelto (Rivaroxaban) 10 Mg Tab 10 Mg PO DAILY Walker/Adult/Folding (Device) 1 Mis Mis Ea .ROUTE DIRECTED Reported Cartia Xt (Diltiazem ER 24 HR) 120 Mg Caper 120 Mg PO DAILY Namenda (Memantine) 5 Mg Tab 5 Mg PO BID Allergies: Coded Allergies: Sulfa (Sulfonamide Antibiotics) (Unverified Allergy, Severe, 12/17/17) Family History No family history of diabetes or CAD Social History Negative for tobacco, alcohol and drugs Physical Exam Vital Signs Vital Signs Date Time Temp Pulse Resp B/P (MAP) Pulse Ox O2 Delivery O2 Flow Rate FiO2 07/13/17 03:57 83 18 99/53 (68) 100 Nasal Cannula 2.00 07/13/17 01:38 99 Nasal Cannula 2.00 07/13/17 01:08 89 18 99/63 (75) 99 Nasal Cannula 2.00 07/13/17 00:01 99 18 115/57 (76) 99 Nasal Cannula 2.00 07/12/17 22:20 99 Nasal Cannula 4.00 07/12/17 22:20 99 4.00 07/12/17 22:20 99 07/12/17 21:20 99 07/12/17 21:20 07/12/17 21:20 99 Nasal Cannula 4.00 07/12/17 20:37 96 Room Air 07/12/17 20:36 99.4 84 18 126/82 (97) 97 Room Air 07/12/17 19:03 60 16 128/82 (97) 95 Physical Exam GENERAL: Frail woman lying in bed SKIN: No rashes, ecchymoses or lesions. Cool and dry. HEAD: Atraumatic. Normocephalic. No temporal or scalp tenderness. EYES: Pupils equal round and reactive. No scleral icterus. No injection or drainage. ENT: Nose without bleeding, purulent drainage or septal hematoma. Airway patent. NECK: Trachea midline. No JVD or lymphadenopathy. CARDIOVASCULAR: Regular rate and rhythm without murmurs, gallops, or rubs. RESPIRATORY: Clear to auscultation. Breath sounds equal bilaterally. No wheezes , rales, or rhonchi. GASTROINTESTINAL: Abdomen soft, non-tender, nondistended. No hepato-splenomegaly , or palpable masses. MUSCULOSKELETAL: Extremities without clubbing, cyanosis, or edema. No joint tenderness, effusion, or edema noted. Bilateral lower extremities neurovascularly intact. NEUROLOGICAL: Drowsy. Awakens to sternal rub. Does not answer questions. Status post conscious sedation with propofol. Laboratory Laboratory Tests Test 07/12/17 20:08 07/12/17 23:19 07/12/17 23:36 White Blood Count 12.4 Red Blood Count 4.21 Hemoglobin 12.5 Hematocrit 37.8 Mean Corpuscular Volume 89.7 Mean Corpuscular Hemoglobin 29.8 Mean Corpuscular Hemoglobin Concent 33.2 Red Cell Distribution Width 13.7 Platelet Count 226 Mean Platelet Volume 10.3 Neutrophils (%) (Auto) 76.1 Lymphocytes (%) (Auto) 14.9 Monocytes (%) (Auto) 8.4 Eosinophils (%) (Auto) 0.4 Basophils (%) (Auto) 0.2 Neutrophils # (Auto) 9.4 Lymphocytes # (Auto) 1.8 Monocytes # (Auto) 1.0 Eosinophils # (Auto) 0.1 Basophils # (Auto) 0.0 CBC Comment DIFF FINAL Differential Comment Prothrombin Time 10.0 Prothromb Time International Ratio 1.0 Activated Partial Thromboplast Time 24.4 Blood Urea Nitrogen 24 Creatinine 0.88 Random Glucose 123 Total Protein 6.5 Albumin 2.4 Calcium Level 8.4 Magnesium Level 2.4 Alkaline Phosphatase 64 Aspartate Amino Transf (AST/SGOT) 31 Alanine Aminotransferase (ALT/SGPT) 31 Total Bilirubin 0.2 Sodium Level 148 Potassium Level 4.3 Chloride Level 113 Carbon Dioxide Level 31.6 Anion Gap 3 Estimat Glomerular Filtration Rate 62 Lactic Acid Level 2.7 1.8 Lipase 278 Urine Color YELLOW Urine Turbidity HAZY Urine pH 6.5 Urine Specific Wil[place]ham 1.017 Urine Protein 30 Urine Glucose (UA) NEG Urine Ketones NEG Urine Occult Blood SMALL Urine Nitrite NEG Urine Bilirubin NEG Urine Urobilinogen LESS THAN 2.0 Urine Leukocyte Esterase LARGE Urine RBC 11 Urine WBC 165 Urine Squamous Epithelial Cells 11 Urine Amorphous Sediment RARE Urine Bacteria MANY Urine Hyaline Casts 6 Microscopic Urinalysis Comment CULTURE INDICATED Date/Time Source Procedure Growth Status 07/12/17 20:08 Blood Peripheral Aerobic Blood Culture Pending Received 07/12/17 20:08 Blood Peripheral Anaerobic Blood Culture Pending Received 07/12/17 23:36 Urine Random Urine Urine Culture Pending Received Result Diagram: 07/12/17200707/12/172007 Caprini VTE Risk Assessment Caprini VTE Risk Assessment: Mod/High Risk (score >= 2) Caprini Risk Assessment Model Point Value = 1 Point Value = 2 Point Value = 3 Point Value = 5 Age 41-60 Minor surgery BMI > 25 kg/m2 Swollen legs Varicose veins or History of unexplained or recurrent spontaneous Oral contraceptives or hormone replacement Sepsis (< 1 month) Serious lung disease, including pneumonia (< 1 month) Abnormal pulmonary function Acute myocardial infarction Congestive heart failure (< 1 month) History of inflammatory bowel disease Medical patient at bed rest Age 61-74 Arthroscopic surgery Major open surgery (> 45 min) Laparoscopic surgery (> 45 min) Malignancy Confined to bed (> 72 hours) Immobilizing plaster cast Central venous access Age >= 75 History of VTE Family history of VTE Factor V Leiden Prothrombin [id number] Lupus anticoagulant Anticardiolipin antibodies Elevated serum homocysteine Heparin-induced thrombocytopenia Other congenital or acquired thrombophilia Stroke (< 1 month) Elective arthroplasty Hip, pelvis, or leg fracture Acute spinal cord injury (< 1 month) Prophylaxis Regimen Total Risk Factor Score Risk Level Prophylaxis Regimen 0-1 Low Early ambulation 2 Moderate Order ONE of the following: *Sequential Compression Device (SCD) *Heparin 5000 units SQ BID 3-4 Higher Order ONE of the following medications: *Heparin 5000 units SQ TID *Enoxaparin/Lovenox 40 mg SQ daily (WT < 150 kg, CrCl > 30 mL/min) *Enoxaparin/Lovenox 30 mg SQ daily (WT < 150 kg, CrCl > 10-29 mL/min) *Enoxaparin/Lovenox 30 mg SQ BID (WT < 150 kg, CrCl > 30 mL/min) AND/OR *Sequential Compression Device (SCD) 5 or more Highest Order ONE of the following medications: *Heparin 5000 units SQ TID (Preferred with Epidurals) *Enoxaparin/Lovenox 40 mg SQ daily (WT < 150 kg, CrCl > 30 mL/min) *Enoxaparin/Lovenox 30 mg SQ daily (WT < 150 kg, CrCl > 10-29 mL/min) *Enoxaparin/Lovenox 30 mg SQ BID (WT < 150 kg, CrCl > 30 mL/min) AND *Sequential Compression Device (SCD) Assessment and Plan Assessment and Plan Assessment/plan: 1. Right hip dislocation Patient is status post right hip hemiarthroplasty 04/23/17 Underwent conscious sedation and reduction in the emergency department Orthopedic surgery consulted, appreciate recommendations 2. UTI/Fever Chest x-ray negative for acute disease, personally reviewed UA with many bacteria, 165 WBCs, large leukocyte esterase Patient with leukocytosis of 12.4, lactic acid elevated to 2.7 Has been afebrile since arrival in the emergency department Urine culture pending Blood cultures pending Monitor for signs of sepsis Rocephin 3. Hypertension Continue diltiazem once reconciled 4. Dementia Continue Namenda FEN Heart healthy diet Electrolytes: monitor and replete prn Anticoagulation per ortho Case management consulted to assist with discharge planning Adrienne Glasgow MD Jul 13, 2017 05:34
[2017-07-13] MEDS ORDERED: SENE8.6T3 (06:24)
[2017-07-13] MEDS ORDERED: MAPA325T PO (06:24)
[2017-07-13] MEDS ORDERED: NALOXONE HCL 0.4 MG/ML AMP IV PUSH PRN (08:00)
[2017-07-13] MEDS ORDERED: BISACODYL 10 MG SUPP RECTAL PRN (08:00)
[2017-07-13] MEDS ORDERED: SENNOSIDES 8.6 MG TAB PO PRN (08:00)
[2017-07-13] MEDS ORDERED: LACTULOSE SYRUP 20 GM/30 ML CUP PO PRN (08:00)
[2017-07-13] MEDS ORDERED: ACETAMINOPHEN/HYDROcodone 325 MG/5 MG TAB PO PRN (08:00)
[2017-07-13] MEDS ORDERED: MAGNESIUM HYDROXIDE SUSP 30 ML CUP PO PRN (08:00)
--- NOTE | 2017-07-13 08:46 | EKG ---
Date Performed: 07/12/2017 Time Performed: 22:00:34 PTAGE: 77 years EKG: SINUS TACHYCARDIA WITH OCCASIONAL SUPRAVENTRICULAR PREMATURE COMPLEXES ABNORMAL RHYTHM ECG PREVIOUS TRACING : 04/26/2017 21.23 Compared to previous tracing, baseline artefact is now pres ent. DOCTOR: Carroll Evans Interpretating Date/Time 07/13/2017 08:45:34
[2017-07-13] MEDS ORDERED: SODIUM CHLORIDE 0.9% FLUSH 10 ML FLUSH IV FLUSH SCH (09:00)
[2017-07-13] MEDS ORDERED: DILTIAZEM-CD 120 MG CAP ER PO SCH (09:00)
[2017-07-13] MEDS ORDERED: DOCUSATE SODIUM 50 MG/SENNA 8.6 MG TAB PO SCH (09:00)
--- NOTE | 2017-07-13 09:22 | PD.ORT.PN ---
Subjective Subjective Remarks s/p right hip hemiarthoplasty 04/23/17. patient demented. does not answer questions reported to ED with right hip dislocation. reduced in ER. Objective Vitals Vital Signs Date Time Temp Pulse Resp B/P (MAP) Pulse Ox O2 Delivery O2 Flow Rate FiO2 07/13/17 08:13 98 Nasal Cannula 2.00 07/13/17 08:00 97.7 91 20 120/72 (88) 98 07/13/17 06:55 97 07/13/17 06:40 98.7 92 14 138/59 (85) 98 07/13/17 05:25 90 18 117/56 (76) 99 Nasal Cannula 2.00 07/13/17 03:57 83 18 99/53 (68) 100 Nasal Cannula 2.00 07/13/17 01:38 99 Nasal Cannula 2.00 07/13/17 01:08 89 18 99/63 (75) 99 Nasal Cannula 2.00 07/13/17 00:01 99 18 115/57 (76) 99 Nasal Cannula 2.00 07/12/17 22:20 99 Nasal Cannula 4.00 07/12/17 22:20 99 4.00 07/12/17 22:20 99 07/12/17 21:20 99 07/12/17 21:20 07/12/17 21:20 99 Nasal Cannula 4.00 07/12/17 20:37 96 Room Air 07/12/17 20:36 99.4 84 18 126/82 (97) 97 Room Air 07/12/17 19:03 60 16 128/82 (97) 95 Result Diagram: 07/12/17200707/12/172007 Other Results Laboratory Tests Test 07/12/17 20:08 Prothromb Time International Ratio 1.0 RATIO Prothrombin Time 10.0 SEC (9.8-11.6) Imaging Last 24 hours Impressions Chest X-Ray 07/12/17 190 Signed Impressions: Service Date/Time: June 19:23 - CONCLUSION: No evidence of acute cardiopulmonary disease there Monroe Lu MD Objective Remarks RLE: incision healed well. +knee brace. pain with movement of hip. no palpable deformity. Assessment & Plan Assessment and Plan 1) Right Hip Hemiarthroplasty s/p dislocation with successful reduction -WBAT -knee brace at all times -no surgical intervention needed at this time. -xrays show successful reduction -f/u with [facility] in 3 weeks Alonso Romero/[facility] Jul 13, 2017 09:22
[2017-07-13] MEDS ORDERED: cefTRIAXone INJ 2,000 MG in SODIUM CHLORIDE 0.9% INJ 100 ML IV SCH (10:00)
[2017-07-13] MEDS ORDERED: CEFU1TAB18 PO (12:29)
--- NOTE | 2017-07-13 12:31 | HHI.PR ---
Subjective Remarks Follow-up right hip dislocation and UTI. Patient confused from history of dementia. Discussed with hospice and RN Objective Vitals Vital Signs Date Time Temp Pulse Resp B/P (MAP) Pulse Ox O2 Delivery O2 Flow Rate FiO2 07/13/17 08:13 98 Nasal Cannula 2.00 07/13/17 08:00 97.7 91 20 120/72 (88) 98 07/13/17 06:55 97 07/13/17 06:40 98.7 92 14 138/59 (85) 98 07/13/17 05:25 90 18 117/56 (76) 99 Nasal Cannula 2.00 07/13/17 03:57 83 18 99/53 (68) 100 Nasal Cannula 2.00 07/13/17 01:38 99 Nasal Cannula 2.00 07/13/17 01:08 89 18 99/63 (75) 99 Nasal Cannula 2.00 07/13/17 00:01 99 18 115/57 (76) 99 Nasal Cannula 2.00 07/12/17 22:20 99 Nasal Cannula 4.00 07/12/17 22:20 99 4.00 07/12/17 22:20 99 07/12/17 21:20 99 07/12/17 21:20 07/12/17 21:20 99 Nasal Cannula 4.00 07/12/17 20:37 96 Room Air 07/12/17 20:36 99.4 84 18 126/82 (97) 97 Room Air 07/12/17 19:03 60 16 128/82 (97) 95 Result Diagram: 07/12/17200707/12/17 2008 Imaging Last Impressions Chest X-Ray 07/12/17 1902 Signed Impressions: Service Date/Time: June 19:23 - CONCLUSION: No evidence of acute cardiopulmonary disease there Monroe Lu MD Hip and Pelvis X-Ray 07/12/17 0000 Signed Impressions: Service Date/Time: June 19:23 - CONCLUSION: Posterior/superior dislocation of the bipolar right hip arthroplasty. No acute fracture seen. Monroe Lu MD Hip X-Ray 07/12/17 0000 Signed Impressions: Service Date/Time: June 22:34 - CONCLUSION: Interim reduction of the bipolar right hip arthroplasty. Monroe Lu MD Objective Remarks GENERAL: Frail woman lying in bed SKIN: No rashes, ecchymoses or lesions. Cool and dry. CARDIOVASCULAR: Regular rate and rhythm without murmurs, gallops, or rubs. RESPIRATORY: Clear to auscultation. Breath sounds equal bilaterally. No wheezes , rales, or rhonchi. GASTROINTESTINAL: Abdomen soft, non-tender, nondistended. MUSCULOSKELETAL: Extremities without clubbing, cyanosis, or edema. No joint tenderness, effusion, or edema noted. Bilateral lower extremities neurovascularly intact. Right lower extremity immobilized NEUROLOGICAL: Awake and confused. Does not answer questions. Procedures Closed reduction right hip dislocation A/P Problem List: (1) UTI (urinary tract infection) ICD Code: N39.0 - Urinary tract infection, site not specified (2) Dementia ICD Code: F03.90 - Unspecified dementia without behavioral disturbance Assessment and Plan 1. Right hip dislocation Patient is status post right hip hemiarthroplasty 04/23/17 Underwent conscious sedation and reduction in the emergency department Orthopedic surgery consulted, appreciate recommendations 2. UTI/Fever with severe sepsis. Clinically stable Chest x-ray negative for acute disease, personally reviewed UA with many bacteria, 165 WBCs, large leukocyte esterase Patient with leukocytosis of 12.4, lactic acid elevated to 2.7 Has been afebrile since arrival in the emergency department Urine culture pending Blood cultures pending Monitor for signs of sepsis Rocephin, switch to Ceftin upon discharge 3. Hypertension Continue diltiazem 4. Dementia Continue Namenda FEN Heart healthy diet Electrolytes: monitor and replete prn Anticoagulation per ortho Discharge Planning Discharge patient to hospice Condition on discharge: Improved Regular Diet as tolerated Ad Danielle activity weightbearing as tolerated. Right lower extremity brace Rx written: Ceftin Follow-up with primary care physician/hospice Problem Qualifiers (1) UTI (urinary tract infection): Qualified Codes: N30.00 - Acute cystitis without hematuria (2) Dementia: Qualified Codes: F03.91 - Unspecified dementia with behavioral disturbance Reji Sherman MD Jul 13, 2017 12:31
--- NOTE | 2017-07-13 13:15 | PD.WCN.NOT ---
Wound Consult Description: Consult received from Dr Sherman for coccyx wound management Communicated with: JERMAINE Reese CNA Kristine Cooper PA Recommendation: Gently cleanse Stage IV sacral wounds every 3 days and PRN with Normal Saline and gauze. Apply skin prep to periwounds and allow to dry. Apply foam adhesive dressing over wounds. Date dressing. Additional Information: Patient seen in B pod for Stage IV pressure injuries noted on admission to [facility]. Patient positioned to her left side for assessment with JERMAINE Reese and REKHA Scott at bedside. Patient was noted with a soiled underpad when she was repositioned and the foam dressing that may have been covering the full thickness wounds on the sacrum was rolled back on itself and entirely removed. Three wounds noted in an area measuring 6cm x 5cm x 0.4cm with moist white fascia noted in all wounds with sharp defined and minimal jagged wound margins indicating mixed etiology Stage IV pressure injuries . Smallest wound measures 2cm x 2cm x 0.1cm and is noted superiorly to all other wounds. There is no active drainage and no odor noted in the full thickness wound with ~20% fascia and ~80% pink tissue. Wound #2 measures 2.5cm x 1cm x 0.1cm and is located on the left side of the sacrum with ~40% fascia and ~60% pink tissue without active drainage and without odor. Wound #3 measures 2.5cm x 1cm x 0.4cm and is full thickness skinloss with ~80% moist white fascia and ~20% pink tissue with minimal thin serous exudate. There is scar tissue noted to periwounds in the center of the two inferior wounds indicating this was a larger wound previously. There is a skin tear noted to the left inner buttock measuring 1cm x 2cm x <0.1cm with 100% pink moist tissue indicating partial thickness skinloss without active drainage and without odor noted. Naila Bland [facility] Jul 13, 2017 13:15
== END 2017-07-13 16:10 | disposition hospice, inpatient (51) ==
LOC: NEPE 18:53 → NEDA 23:10
PROVIDERS: ADMIT Hospitalist; ATTEND Hospitalist
DX: T84.020A Dislocation of internal right hip prosthesis, initial encounter (principal); A41.9 Sepsis, unspecified organism; N30.00 Acute cystitis without hematuria; G93.40 Encephalopathy, unspecified; F03.90 Unspecified dementia, unspecified severity, without behavioral disturbance, psychotic disturbance, mood disturbance, and anxiety; G30.9 Alzheimer's disease, unspecified; R94.31 Abnormal electrocardiogram [ECG] [EKG]; I10 Essential (primary) hypertension; J45.909 Unspecified asthma, uncomplicated; Y79.2 Prosthetic and other implants, materials and accessory orthopedic devices associated with adverse incidents
CPT/HCPCS: 27265; 51702; 71045; 73501; 73502; 80053; 81001; 83605; 83690; 83735; 85025; 85610; 85730; 87040; 87086; 93005; 96361; 96365; 96366; 96375; 96376; 97162; 99156; 99285; G0378; G8987; G8988; J0696; J1885; J7030; L1830